=== PATIENT | female | born 1960 | race Caucasian/White ===

== ENCOUNTER 2019-08-25 07:22 | Day surgery (SDC) | payer MEDICARE, MEDICAID, SELFPAY ==
--- NOTE | 2019-08-22 16:46 | P.PN_ITS ---
Coding Level of Care Code Acute Morning Babysitter for Samantha Cruz
--- NOTE | 2019-08-22 16:46 | PM.PN ---
Coding Level of Care Code Acute Slip Cover Seamstress for Samantha Cruz
[2019-08-24 13:43] VITALS: BMI 25.4
[2019-08-25 07:48] LABS: Glucose Point of Care 77 mg/dL (70-110)
[2019-08-25] MEDS: sodium chloride 0.9% 1,000 ML 30 ML IV (07:55)
--- NOTE | 2019-08-25 08:04 | ANES.PREANE2 ---
Pre-Anesthetic Assessment Pre-Anesthetic Assessment: Height/Weight: Height 1.52 m Weight 58.967 kg Preop Diagnosis: Right rotator cuff Proposed Procedure: Operation Date: 08/25/19 09:30 Proposed Procedures p Shoulder Arthroscopy [id number](Right) - Fadi Sierra MD s Rotator Cuff Repair/And other indicated procedures(Right) - Fadi Sierra MD Last intake: Intake Last Liquid Date 08/24/19 Last Liquid Time 18:30 Last Solid Date 08/24/19 Last Solid Time 18:30 Social: Social History: Tobacco Packs per day: 1 Pack years: 45 Comment: quit 2 weeks Exam: Pre-Anes Outpt Exam: alert, oriented x 3, clear to auscultation bilaterally and regular rate & rhythm Airway: Submandibular: WNL Cervical ROM: WNL MP: 1 Pulmonary: Pulmonary: COPD Comments: home 02 2lpm x 2y CV/HEM: CV/HEM: HTN Comments: rx'd 2y stress test negative GI: GI: GERD Comments: well controlled Metabolic: Metabolic: DM Comments: rx'd x 12y, does not follow Musc/skel: Musc/skel: Lower Back Pain (bilateral radiculopathy) Neuropsych: Neuropsych: Depression Anesthetic Plan: ASA status: 3 Anesthesia: General PFSH Anesthesia PFSH: Social History Smoking and tobacco status: former smoker Alcohol intake: never Data Anesthesia Other Labs: Laboratory Results - last 48 hr 08/25/19 07:44 POC Glucose 77 Cardiac Studies: No Data to Display
--- NOTE | 2019-08-25 08:37 | ANES.PROC ---
Anesthesia Procedures Procedure/Date: 08/25/19 Right innerscalene block Procedure Narrative: R&B's of right interscalene block for right shoulder surgery postop pain mx disc'd. Verbal and written consent obtained. Versed 2+1+1mg, Fentanyl 50ug. US utilized to identify right interscalene groove, NENITA. Nerve stimulator at 0.8mAMPS. Ropvicaine 0l5% + Lido 2% with epi 30cc in 3:1 ratio in 5cc increments without problems/complications. Nerve Block ^: Nerve Block 1: Main Anesthesia: general anesthesia Time Out Performed: Yes Consent: requested by attending/covering physician, from patient, risks and benefits reviewed and patient agrees to proceed Nerve block location: interscalene Anesthesia monitors applied: pulse oximetry and oxygen Anesthetic Used: lidocaine 2%, ropivicaine 0.5% and with epi Amount of anesthesia used (mL): 30 Ultrasound used to: visualize and ID interscalene groove Nerve Stimulator Used?: Yes Interscalene/Femoral BLK: 2 stimuplex 22 g needle used for position and inplane approach Injection: neg aspiration of heme Patient Tolerated Procedure: well and no complications Complications: none
[2019-08-25] MEDS: fentaNYL 50 mcg/mL INJ 2mL 100 MCG IVP (09:06)
[2019-08-25] MEDS: midazolam 1 mg/mL INJ 5 ML 5 MG IVP (09:08)
--- NOTE | 2019-08-25 09:35 | W.PM.OPSUD ---
Surgery/Procedure H&P Update DATE OF PROCEDURE: August 25, 2019 DATE H&P PERFORMED: 08/15/19 H&P UPDATE INFORMATION: I have reviewed H&P completed within last 30 days and No changes to prior documentation PREOP DIAGNOSIS: Right rotator cuff PRIMARY INDICATION FOR PROCEDURE: Chronic right shoulder pain with MRI showing full-thickness rotator cuff tear PLANNED PROCEDURE: Operation Date: 08/25/19 09:30 Proposed Procedures p Shoulder Arthroscopy [id number](Right) - Fadi Sierra MD s Rotator Cuff Repair/And other indicated procedures(Right) - Fadi Sierra MD
--- NOTE | 2019-08-25 11:25 | P.OP_ITS ---
Operative Report Date of procedure: August 25, 2019 Pre-op Diagnosis: Right rotator cuff tear Post-op Diagnosis: High-grade partial-thickness tear right rotator cuff Post-op Findings: Same Procedure Done: Arthroscopic repair right rotator cuff with bio inductive implant Implants: Ornelas and Nephew Regeneten bio inductive in Pathology: none sent Anesthesia: General and Nerve Block (Interscalene) Estimated blood loss (mL): 25 Complications: None Findings: The patient had high-grade tearing on the articular aspect of her supraspinatus involving approximately 60% of the thickness of the tendon. Her glenohumeral joint and humeral head were free of chondromalacia. Labral attachments in her biceps were healthy Condition: stable Disposition: PACU Procedure: The patient was taken to the operating room after she was given an interscalene block by anesthesia. She was taken to the operating room and given 2 g of Ancef, she was positioned in the lateral position with her right arm in 15 pounds of traction. A timeout was performed. A posterior portal was made 2 cm inferior medial to the posterior corner of the acromion. A scope cannula and trocar were driven into the glenohumeral joint and anterior working portal was made with a scalpel blade. A probe was introduced and the glenohumeral arthroscopy performed. Essentially no abnormal findings were identified other than the articular tear of the rotator cuff. The rotator cuff was lightly debri ded with the incisor shaver revealing the area of high-grade tearing beginning just posterior to the biceps tendon extending posteriorly approximately a centimeter and a half involving approximately 60% of the thickness of the tendon. A spinal needle was introduced laterally in the area of tearing marked. The scope and the anterior cannula were then directed to the subacromial space. A lateral portal was opened up in the bursal aspect of the rotator cuff carefully probed. No areas of full-thickness tearing were identified. As the problems seem to be predominantly a biological issue decision was made to proceed with a bio inductive implant. Through a low lateral portal the regenerative and implant was introduced. It was fixed laterally on the greater tuberosity with 2 bone jason and anteriorly posteriorly and medially with the soft tissue jason all with excellent purchase. This provided nice coverage over the area of partial-thickness tearing. The shoulder was irrigated with saline. Portals were closed with 3-0 Prolene. Sterile dressings were applied. The patient was placed in a sling, extubated, taken recovery room in stable condition.
[2019-08-25 11:32] VITALS: BP 123/67; PULSE 69; RESP 20; TEMP 36.1; O2SAT 94
[2019-08-25 11:35] VITALS: BP 126/72; PULSE 72; RESP 19; O2SAT 97
[2019-08-25 11:40] VITALS: BP 139/74; PULSE 74; RESP 13; O2SAT 99
[2019-08-25 11:45] VITALS: BP 133/58; PULSE 79; RESP 18; O2SAT 93
[2019-08-25 11:50] VITALS: BP 112/73; PULSE 67; RESP 18; TEMP 36.1; O2SAT 98
[2019-08-25 11:53] VITALS: BP 109/72; PULSE 69; RESP 18; TEMP 36.2; O2SAT 93
== END 2019-08-25 12:40 | disposition home or self-care (01) ==
PROVIDERS: Family Provider Nurse Practitioner Family; PCP Nurse Practitioner Family; Visit Provider Orthopaedic Surgery
PROC: (CPT 29805; principal; 2019-08-25 09:30)
PROC: (CPT 29827; 2019-08-25 09:30)
DX: M75.101 Unspecified rotator cuff tear or rupture of right shoulder, not specified as traumatic (principal); Z87.891 Personal history of nicotine dependence; J44.9 Chronic obstructive pulmonary disease, unspecified; I10 Essential (primary) hypertension; K21.9 Gastro-esophageal reflux disease without esophagitis; E11.9 Type 2 diabetes mellitus without complications; F32.9 Major depressive disorder, single episode, unspecified
CPT/HCPCS: 29827; 12345; 36416; 82962; 96374; C1713; J0690; J2001; J2250; J2370; J2405; J2704; J2710; J2795; J3010; J3490; J7030

== ENCOUNTER → 2019-10-05 09:20 | Outpatient (BNVA) | payer MEDICARE, MEDICAID, SELFPAY | PROVIDERS: Family Provider Nurse Practitioner Family; PCP Nurse Practitioner Family; Visit Provider Orthopaedic Surgery | DX: M75.101 Unspecified rotator cuff tear or rupture of right shoulder, not specified as traumatic (principal); M13.811 Other specified arthritis, right shoulder | CPT/HCPCS: 73030 ==

== ENCOUNTER 2019-10-11 06:00 | Outpatient (RCR) | payer MEDICARE, MEDICAID, SELFPAY | END 2019-11-05 23:59 | disposition home or self-care (01) | LOC: WPT 06:00 | PROVIDERS: PCP Nurse Practitioner Family; Referring Provider Orthopaedic Surgery; Visit Provider Orthopaedic Surgery | DX: Z47.89 Encounter for other orthopedic aftercare (principal); Z98.890 Other specified postprocedural states | CPT/HCPCS: 97110; 97112; 97162; 97530 ==

== ENCOUNTER 2019-11-06 06:00 | Outpatient (RCR) | payer MEDICARE, MEDICAID, SELFPAY | END 2019-12-05 23:59 | disposition home or self-care (01) | LOC: WPT 06:00 | PROVIDERS: PCP Nurse Practitioner Family; Visit Provider Orthopaedic Surgery | DX: Z47.89 Encounter for other orthopedic aftercare (principal); Z98.890 Other specified postprocedural states | CPT/HCPCS: 97110; 97112; 97140; 97150 ==

== ENCOUNTER 2019-11-15 06:00 | Day surgery (SDC) | payer MEDICARE, MEDICAID, SELFPAY ==
[2019-11-15] VITALS (9 sets, daily range): BP systolic 144–224; BP diastolic 74–124; PULSE 71–94; RESP 18–23; TEMP 36.1–37; O2SAT 93–100; BMI 29.7
[2019-11-15 06:30] LABS: Glucose Point of Care 131 mg/dL (70-110)
--- NOTE | 2019-11-15 06:34 | P.ANESASSM_ITS ---
Pre-Anesthetic Assessment Pre-Anesthetic Assessment: Height/Weight: Height 1.52 m Weight 68.946 kg Temp Pulse Resp BP Pulse Ox 98.2 F 89 18 144/74 97 11/15/19 06:16 11/15/19 06:16 11/15/19 06:16 11/15/19 06:16 11/15/19 06:16 Preop Diagnosis: Stiffness status post right rotator cuff repair Proposed Procedure: Operation Date: 11/15/19 07:00 Proposed Procedures p right shoulder arthrosocpy with release of adhesions ([id number])Z48.890(Right) - Fadi Sierra MD Familial anesthetic complications: None Was Beta Roxi taken within 24 hours: N/A Last intake: Intake Last Liquid Date 11/14/19 Last Liquid Time 18:00 Last Solid Date 11/14/19 Last Solid Time 18:00 Social: Comment: former smokers Exam: Pre-Anes Outpt Exam: alert, oriented x 3, clear to auscultation bilatera lly and regular rate & rhythm Airway: Cervical ROM: WNL MP: 2 Additional comments: missing Pulmonary: Pulmonary: COPD (2 L NC at night) Comments: Has had interscalene recently for shoulder and did well from a breathing standing CV/HEM: CV/HEM: Arrythmia (was told she has had a fib) and HTN Comments: stress test this november was negative for ischemia : : None reported Hepatic: Hepatic: None reported GI: GI: GERD Metabolic: Metabolic: DM, Hyperlipidemia and Thyroid Musc/skel: Musc/skel: None reported Neuropsych: Neuropsych: None reported Comments: syncopal-like episode - was having PVCs when she went to ER, went for stress test (normal stress test) in november. Anesthetic Plan: ASA status: 4 Anesthesia: General and Regional (specify below) Risk of > 500 ml blood loss (7ml/kg in children): No PFSH Anesthesia PFSH: Medical History Essential hypertension Family History Father Bleeding disorder Anesthesia complication Other CAD (coronary artery disease) Diabetes Social History Smoking and tobacco status: former smoker Alcohol intake: never Data Anesthesia Other Labs: Laboratory Results - last 48 hr 11/15/19 06:27 POC Glucose 131 Cardiac Studies: No Data to Display
[2019-11-15] MEDS: sodium chloride 0.9% 1,000 ML 30 ML IV (06:42)
--- NOTE | 2019-11-15 06:43 | ECG_ITS ---
"Measurements Intervals [place] Rate: 84 P: 40 MN: 196 QRS: 23 QRSD: 83 T: 47 QT: 377 QTc: 447 SINUS RHYTHM WITH OCCASIONAL SUPRAVENTRICULAR PREMATURE COMPLEXES LOW QRS VOLTAGE IN PRECORDIAL LEADS [QRS DEFLECTION < 1.0 mV IN CHEST LEADS] POSSIBLE RIGHT VENTRICULAR CONDUCTION DELAY [RSR (QR) IN V1/V2] Compared to ECG 09/23/2018 12:43:23 No significant changes Electronically Signed On 11-15-2019 7:00:43 CDT by Arik Heller M.D. [email or web address] An[employer] | [id number] curran"
[2019-11-15] MEDS: midazolam 1 mg/mL INJ 2 mL 2 MG IVP (06:45)
--- NOTE | 2019-11-15 07:00 | ANES.PROC ---
Anesthesia Procedures Procedure/Date: 11/15/19 Nerve Block ^: Nerve Block 1: Main Anesthesia: general anesthesia Time Out Performed: Yes Consent: requested by attending/covering physician, from patient, risks and benefits reviewed and patient agrees to proceed Nerve block location: interscalene (R) Anesthesia monitors applied: pulse oximetry, BP cuff and oxygen Nerve block position: semi sitting Anesthetic Used: ropivicaine 0.5% and with decadron (3 mg) Amount of anesthesia used (mL): 20 Ultrasound used to: recognize landmarks, visualize and ID brachial plexus and visualize and ID interscalene groove Nerve Stimulator Used?: No Interscalene/Femoral BLK: 2 stimuplex 22 g needle used for position and inplane approach Injection: neg aspiration of heme Patient Tolerated Procedure: well Complications: none
--- NOTE | 2019-11-15 07:00 | W.PM.OPSUD ---
Surgery/Procedure H&P Update DATE OF PROCEDURE: November 15, 2019 DATE H&P PERFORMED: 11/06/19 PREOP DIAGNOSIS: Stiffness status post right rotator cuff repair PLANNED PROCEDURE: Operation Date: 11/15/19 07:00 Proposed Procedures p right shoulder arthrosocpy with release of adhesions ([id number])Z48.890(Right) - Fadi Sierra MD
[2019-11-15] MEDS: clindamycin 600 MG/50 ML PREMIX 100 MG IV (07:05)
[2019-11-15] MEDS: EPINEPHrine 1 mg/mL INJ 2 MG XX (07:51)
--- NOTE | 2019-11-15 08:17 | PM.OP ---
Operative Report Date of procedure: November 15, 2019 Pre-op Diagnosis: Stiffness status post right rotator cuff repair Post-op diagnosis: same Post-op Findings: Subacromial adhesions right shoulder Procedure Done: The scopic debridement adhesions of the subacromial space Implants: None Pathology: none sent Surgeon: Fadi Sierra Anesthesia: General Estimated blood loss (mL): 5 Findings: Preoperatively I could flex her shoulder to 90 degrees and actually rotated 20 degrees. She could abduct only approximately 60 degrees before firm endpoint was met patient had dense and subacromial adhesions. She had healing of her Ornelas and Nephew Regeneten implant with excellent vascularity. Seem to be good structural integrity toward the augmented rotator cuff. Minimal degenerative changes were identified of the glenohumeral joint. Biceps tendon appeared healthy. Condition: stable Disposition: PACU Procedure: Patient was taken to the operating room and given a general anesthesia. She was given 600 mg of clindamycin. Initial efforts were made at a manipulation of the right shoulder. The shoulder was initially brought through a preoperative range of motion with the above findings noted. The shoulder was then flexed to 170 degrees. The arm was then abducted 90 degrees and externally rotated 80 degrees and into the rotated 70 degrees. With the elbow at the side the shoulder was then externally rotated to 70 degrees. These motions were all identical to the contralateral side. The patient was then positioned in the lateral position with the right arm in traction. The shoulder was entered through the previous posterior portal and anterior working portal was made and the shaver introduced into the glenohumeral joint and blood and debris's removed. Diagnostic portion of the glenohumeral arthroscopy was performed. The biceps tendon was retracted and the joint and examined. The old partial-thickness articular tear was again identified but clearly no full-thickness tearing was noted. Arthroscopic equipment was then moved into the subacromial space. A lateral portal was opened. An incisor shaver was introduced and dense subacromial adhesions were removed with the shaver. This exposed the Ornelas and Nephew Regeneten implant. Remnants of old soft tissue and bone jason were identified. The implant was's vascularized intact. The rotator cuff was probed and the augmented rotator cuff seemed to be of sufficient quality. The Ornelas and Nephew Werewolf probe was used to remove additional subacromial adhesions in the subdeltoid space, anterior subacromial space, posterior subacromial space, and medially. The shoulder was irrigated with saline. Arthroscopic [place] was removed. Portals were closed with 3-0 Prolene. Sterile dressings were applied. The patient was placed in a sling, extubated, and taken recovery room in stable condition.
--- NOTE | 2019-11-15 08:59 | SUR.PHASEI ---
;;[id number] PT TO PACU WEAK GASPING WITH RAPID RESP NOTED PT HOB UP TO 40 DEGREES PT LEANING SO PROPPED WITH BLANKETS SATS GOOD ON 4LNC, NETWORK CONTRACT MANAGER AND DR FELTON AT BEDSIDE ORDERS FOR MORE REVERSAL , NETWORK CONTRACT MANAGER TO GIVE, 0825 PT STILL HAVING DIFFICULTY BREATHING, ALBUTEROL NEB ORDERED 0828 PT MORE AWAKE AFTER SUGAMADEX PER NETWORK CONTRACT MANAGER, NEB TX STARTED PT SATS IMPROVING AND PT MOVING MORE STRONGLY, COUGHING NOW, VSS PT AWAKE ALERT AND BREATHING MORE EASILY, 0838 PT AWAKE ALERT BACK ON 2LNC AT HOME, BILAT LUNGS CLEAR WITH DIMINISHED RT LOWER LUNG, PT HAS RT SHOULDER DRESSING D./I SLING, AND HAD BLOCK EARLLIER , WITH FINGERS PINK WARM PT STATES HER FINGERS FEEL (NUMB) PT RUBBING HER RT FINGERS CONTINUALLY, PT TAKING ICE CHIPS REPORT TO OPS.
== END 2019-11-15 09:43 | disposition home or self-care (01) ==
PROVIDERS: PCP Nurse Practitioner Family; Visit Provider Orthopaedic Surgery
PROC: (CPT 29805; principal; 2019-11-15 07:00)
DX: M25.611 Stiffness of right shoulder, not elsewhere classified (principal); Z98.890 Other specified postprocedural states; J44.9 Chronic obstructive pulmonary disease, unspecified; I10 Essential (primary) hypertension; K21.9 Gastro-esophageal reflux disease without esophagitis; E11.9 Type 2 diabetes mellitus without complications; E78.5 Hyperlipidemia, unspecified; Z79.82 Long term (current) use of aspirin; Z79.4 Long term (current) use of insulin; Z87.891 Personal history of nicotine dependence
CPT/HCPCS: 29822; 12345; 36416; 82962; 93005; 96374; J0171; J1100; J1885; J2001; J2250; J2310; J2370; J2405; J2704; J2710; J2795; J3010; J3490; J7030; J7611

== ENCOUNTER 2019-12-06 06:00 | Outpatient (RCR) | payer MEDICARE, MEDICAID, SELFPAY | END 2020-01-05 23:59 | disposition home or self-care (01) | LOC: WPT 06:00 | PROVIDERS: PCP Nurse Practitioner Family; Visit Provider Orthopaedic Surgery | DX: Z47.89 Encounter for other orthopedic aftercare (principal); Z98.890 Other specified postprocedural states | CPT/HCPCS: 97110; 97140; 97164 ==

== ENCOUNTER 2020-01-06 06:00 | Outpatient (RCR) | payer MEDICARE, MEDICAID, SELFPAY | END 2020-02-05 23:59 | disposition home or self-care (01) | LOC: WPT 06:00 | PROVIDERS: PCP Nurse Practitioner Family; Visit Provider Orthopaedic Surgery | DX: Z47.89 Encounter for other orthopedic aftercare (principal) | CPT/HCPCS: 97110 ==

== ENCOUNTER → 2020-05-20 14:24 | Outpatient (BNVA) | payer MEDICARE, MEDICAID, SELFPAY | PROVIDERS: PCP Nurse Practitioner Family; Visit Provider Internal Medicine | DX: Z20.828 Contact with and (suspected) exposure to other viral communicable diseases (principal); Z01.818 Encounter for other preprocedural examination; Z86.010 Personal history of colon polyps | CPT/HCPCS: 87635 ==

== ENCOUNTER 2020-05-24 09:01 | Day surgery (SDC) | payer MEDICARE, MEDICAID, SELFPAY ==
[2020-05-22 14:07] VITALS: BMI 31.2
--- NOTE | 2020-05-24 09:21 | W.PM.OPSUD ---
Surgery/Procedure H&P Update DATE OF PROCEDURE: May 24, 2020 DATE H&P PERFORMED: 11/06/19 PREOP DIAGNOSIS: dbl PLANNED PROCEDURE: Operation Date: 05/24/20 10:00 Proposed Procedures p EGD [id number] z86.010(Not Applicable) - Twan Toribio MD s Colonoscopy(Not Applicable) - Twan Toribio MD
[2020-05-24 09:27] VITALS: PULSE 79; RESP 18; TEMP 36.6; O2SAT 98
[2020-05-24 09:31] VITALS: BP 102/76
[2020-05-24] MEDS: sodium chloride 0.9% 1,000 ML 30 ML IV (09:38)
[2020-05-24 09:43] LABS: Glucose Point of Care 130 mg/dL (70-110)
--- NOTE | 2020-05-24 09:43 | ANES.PREANE2 ---
Pre-Anesthetic Assessment Pre-Anesthetic Assessment: Height/Weight: Height 1.52 m Weight 72.575 kg Temp Pulse Resp BP Pulse Ox 97.9 F 79 18 102/76 98 05/24/20 09:27 05/24/20 09:27 05/24/20 09:27 05/24/20 09:31 05/24/20 09:27 Preop Diagnosis: dbl Proposed Procedure: Operation Date: 05/24/20 10:00 Proposed Procedures p EGD [id number] z86.010(Not Applicable) - Twan Toribio MD s Colonoscopy(Not Applicable) - Twan Toribio MD Last intake: Intake Last Liquid Date 05/23/20 Last Liquid Time 20:00 Last Solid Date 05/22/20 Last Solid Time 17:00 Social: Social History: Tobacco (quit 2 weeks ago) and No alcohol Exam: Pre-Anes Outpt Exam: alert, oriented x 3, clear to auscultation bilaterally (bilat wheezes) and regular rate & rhythm Airway: Submandibular: WNL Cervical ROM: WNL MP: 2 Additional comments: poor dentation, mult missing History/ROS: No significant history except as noted Pulmonary: Pulmonary: COPD, GONZALES and SOB CV/HEM: CV/HEM: HTN : : None reported Hepatic: Hepatic: None reported GI: GI: GERD Metabolic: Metabolic: DM, Hyperlipidemia and Thyroid Musc/skel: Musc/skel: Lower Back Pain and OA/DJD Neuropsych: Neuropsych: None reported Anesthetic Plan: ASA status: 3 Anesthesia: Anesthesia Evaluation and MAC Risk of > 500 ml blood loss (7ml/kg in children): No Meds/Allergies Current Medications: Current Medications Generic Name Dose Route Start Last Admin Trade Name Freq PRN Reason Stop Dose Admin Sodium Chloride 1,000 mls @ 30 ml s/hr 05/24/20 09:15 05/24/20 09:38 Sodium Chloride 0.9% IV 05/25/20 09:14 30 mls/hr .Q24H ANITA Administration PFSH Anesthesia PFSH: Medical History Essential hypertension Family History Father Bleeding disorder Anesthesia complication Other CAD (coronary artery disease) Diabetes Social History Smoking and tobacco status: former smoker Alcohol intake: never History of recent travel: No Data Anesthesia Other Labs: Laboratory Results - last 48 hr 05/24/20 09:36 POC Glucose 130 H Cardiac Studies: No Data to Display
[2020-05-24 11:17] VITALS: BP 100/64; PULSE 75; RESP 16; TEMP 36.3; O2SAT 98
[2020-05-24 11:28] VITALS: BP 124/75; PULSE 77; RESP 18; O2SAT 100
--- NOTE | 2020-06-03 11:51 | W.PM.OPSFHP ---
Same Day Surgery H&P Indication for Procedure/HPI DATE OF PROCEDURE: June 03, 2020 CHIEF COMPLAINT/INDICATIONFOR SURGICAL PROCEDURE: Epigastric pain PREOP DIAGNOSIS: dbl PLANNED PROCEDRUE: Operation Date: 05/24/20 10:00 Proposed Procedures p EGD [id number] z86.010(Not Applicable) - Twan Toribio MD s Colonoscopy(Not Applicable) - Twan Toribio MD Medications/Allergies* Home Medications Medication Instructions Recorded Confirmed Type Trelegy Ellipta 1 inh INHALATION DAILY 08/24/19 05/24/20 History Xultophy 100/3.6 15 unit SUBCUT DAILY 08/24/19 05/24/20 History aspirin [Aspirin Childrens] 81 mg PO DAILY 08/24/19 05/24/20 History bupropion HCl 150 mg PO QAM 08/24/19 05/22/20 History cyclobenzaprine 10 mg PO TID PRN 08/24/19 05/22/20 History famotidine 40 mg PO DAILY 08/24/19 05/22/20 History gabapentin 300 mg PO DAILY 08/24/19 05/22/20 History levothyroxine 25 mcg PO DAILY 08/24/19 05/22/20 History montelukast [Singulair] 10 mg PO DAILY 08/24/19 05/22/20 History rosuvastatin [Crestor] 20 mg PO DAILY 08/24/19 05/24/20 History tramadol 50 mg PO Q6H PRN 08/24/19 05/24/20 History Allergies/Adverse Reactions Allergy/AdvReac Type Severity Reaction Status Date / Time Penicillins Allergy Severe Unknown Verified 05/16/20 14:27 Sulfa (Sulfonamide Allergy Severe Unknown Verified 05/16/20 14:27 Antibiotics) prednisone Allergy ALGY-Redness Verified 05/16/20 14:27 of Skin Pertinent History/Comorbid Conditions* Medical History (Updated 05/16/20 @ 15:03 by Twan Toribio MD) Essential hypertension Family History (Updated 08/29/19 @ 09:52 by Nelli Machado LPN) Diabetes CAD (coronary artery disease) Anesthesia complication Father Bleeding disorder Father Social History Smoking and tobacco status: former smoker Alcohol intake: never History of recent travel: No Pertinent Exam Findings alert, oriented x 3, clear to auscultation bilaterally, regular rate & rhythm, operative site marked and procedure specific exam findings Recommendations Surgery/Procedure today Coding Level of Care Code Acute Bus And Trolley Inspecting Dispatcher for [facility] Nancy
== END 2020-05-24 11:34 | disposition home or self-care (01) ==
PROVIDERS: PCP Nurse Practitioner Family; Visit Provider Internal Medicine
PROC: 0DJ08ZZ Inspection of Upper Intestinal Tract, Via Natural or Artificial Opening Endoscopic (ICD-10-PCS; CPT 43235; principal; 2020-05-24 10:00)
PROC: 0DJD8ZZ Inspection of Lower Intestinal Tract, Via Natural or Artificial Opening Endoscopic (ICD-10-PCS; CPT 45378; 2020-05-24 10:00)
DX: Z86.010 Personal history of colon polyps (principal); Z87.891 Personal history of nicotine dependence; J44.9 Chronic obstructive pulmonary disease, unspecified; I10 Essential (primary) hypertension; K21.9 Gastro-esophageal reflux disease without esophagitis; E11.9 Type 2 diabetes mellitus without complications; E78.5 Hyperlipidemia, unspecified; M19.90 Unspecified osteoarthritis, unspecified site; Z79.82 Long term (current) use of aspirin; Z79.4 Long term (current) use of insulin
CPT/HCPCS: 12345; 36416; 43235; 45378; 82962; J7030

== ENCOUNTER 2022-03-10 14:14 | Outpatient (CLI) | payer MEDICARE, SELFPAY ==
--- NOTE | 2022-03-10 14:22 | MR_ITS ---
WS: [id number] MRI LEFT SHOULDER HISTORY: PAIN OF L SHOULDER JOINT COMPARISON: None available. TECHNIQUE: Multiplanar sequences of the shoulder joint are submitted. Patient was unable to complete this examination due to pain. Only a few sequences have been submitted . Some of the sequences have significant motion artifact. Moderate AC joint hypertrophy with mild encroachment upon the supraspinatus muscle and tendon. Small amount of fluid along the AC joint. No os acromion. Biceps tendon in the bicipital groove with increa sed fluid in the tendon sheath. There is increased T2 signal surrounding the distal supraspinatus ten don and a moderate insertion site tear of approximately 5 mm. No retraction or full-thickness tear. S ubscapularis tendon appears intact with mild tendinopathy. No muscle atrophy. Increased T2 signal thr ough the rotator cuff interval. There is abnormal signal in the posterior labrum. This is a very limited evaluation of the labrum but the posterior labrum does have a tear. MR/MR shoulder LT wo con* [id number] IMPRESSION: 1. Very limited evaluation of the LEFT shoulder. Patient was unable to complet e this examination secondary to motion. 2. Moderate AC joint arthritis with encroachment upon the supraspinatus. 3. Insertion site tear supraspinatus muscle with tendinopathy. 4. Suspect posterior labral tear. There may be additional labral tears but the study is suboptimal.
== END 2022-03-10 14:15 | disposition home or self-care (01) ==
LOC: RAD 14:14
PROVIDERS: PCP Nurse Practitioner Family; Visit Provider Registered Nurse
DX: M13.812 Other specified arthritis, left shoulder (principal); M75.102 Unspecified rotator cuff tear or rupture of left shoulder, not specified as traumatic
CPT/HCPCS: 73221

== ENCOUNTER → 2022-03-31 13:35 | Outpatient (BNVA) | payer MEDICARE, MEDICAID, SELFPAY | PROVIDERS: PCP Nurse Practitioner Family; Visit Provider Nurse Practitioner Family | DX: M67.912 Unspecified disorder of synovium and tendon, left shoulder (principal) | CPT/HCPCS: 20610; 73030; 99204; J1100; J2795; J3301 ==

== ENCOUNTER → 2022-12-28 14:02 | Outpatient (BNVA) | payer MEDICARE, MEDICAID, SELFPAY | PROVIDERS: PCP Nurse Practitioner Family; Visit Provider Internal Medicine Cardiovascular Disease | DX: R00.2 Palpitations (principal); R55 Syncope and collapse; R06.02 Shortness of breath; R07.9 Chest pain, unspecified; J43.9 Emphysema, unspecified; G47.33 Obstructive sleep apnea (adult) (pediatric) | CPT/HCPCS: 36415; 80048; 83880; 93005; 93270; 99205 ==

== ENCOUNTER 2023-01-11 09:53 | Outpatient (CLI) | payer MEDICARE, MEDICAID, SELFPAY ==
--- NOTE | 2023-01-11 11:00 | USCV_ITS ---
Jael Adame Age: 62 Gender: F : 1960 Exam Date: 01/11/2023 10:46 Ordering Phys: Lauren Brothers MD ([email or web address]) Technologist: PROSPER Exam Location: [facility] [place] Indication: SHORTNESS OF BREATH BP: 125 / 62 HR: 58 Rhythm: Sinus Technical Quality: Adequate MEASUREMENTS (Male / Female) Normal Values 2D ECHO LVOT Diameter 2.0 cm LV Ejection Fraction MOD 2C 72.1 % LV Ejection Fraction 2C AL 76.0 % LA Diameter 3.0 cm LA Width 3.0 cm LA Height 4.0 cm RA Width 2.9 cm RA Height 3.4 cm Aorta at Sinotubular Diameter 2.1 cm IVC Diameter 1.3 cm M-MODE Aortic Annulus Diameter 3.2 cm LA Ao Ratio MM 0.9 MV E Point Septal Separation 0.3 cm DOPPLER AV Peak Velocity 117.0 cm/s LVOT Peak Velocity 114.0 cm/s AV Area Cont Eq vti 3.2 cm squared AV Area Cont Eq pk 3.2 cm squared MV Peak Velocity 104.0 cm/s MV Area PHT 4.1 cm squared Mitral E to A Ratio 0.7 MV E' Velocity 35.0 cm/s Mitral E to MV E' Ratio 12.9 Mitral E to LV E' Lateral Ratio 15.3 Mitral E to LV E' Septal Ratio 11.3 TR Peak Velocity 166.0 cm/s TR Peak Gradient 11.0 mmHg TR Mean Velocity 141.5 cm/s TR Mean Gradient 8.0 mmHg TR Velocity Time Integral 43.0 cm TV Peak E Velocity 71.0 cm/s Right Atrial Pressure 3.0 mmHg Pulmonary Artery Systolic Pressu 14.0 mmHg PV Peak Velocity 82.0 cm/s RV Acceleration Time 0.1 s RV Ejection Time 0.3 s RV AcT/ET 0.3 FINDINGS Left Ventricle Normal left ventricular size and systolic function, EF 72 %. Moderate left ventricular hypertrophy. No regional wall motion abnormalities. Grade I/IV diastolic dysfunction (abnormal relaxation filling pattern), normal to mildly elevated filling pressures. Right Ventricle The right ventricle is normal in size and function. Right Atrium The right atrium is normal in size. Left Atrium Mildly increased left atrial size. Mitral Valve Mild mitral annular calcification. Aortic Valve No gross abnormalities noted. The LVOT velocity was 1.14 m/s at rest. With the Valsalva's maneuver, the velocity went up to 2.9 m/s with a gradient of 34 mmHgtrace to mild aortic valve regurgitation. Tricuspid Valve No gross abnormalities noted Pulmonic Valve Pulmonic valve not well visualized. Pericardium Normal pericardium without effusion. Aorta Normal ascending aorta dimension. IVC The inferior vena cava appears normal. CONCLUSIONS Normal left ventricular size and systolic function, EF 72 %. Moderate left ventricular hypertrophy. No regional wall motion abnormalities. Grade I/IV diastolic dysfunction (abnormal relaxation filling pattern), normal to mildly elevated filling pressures. Features of hypertrophic obstructive cardiomyopathy with a Valsalva gradient of 34 mmHg and normal resting gradient. Trace to mild aortic valve regurgitation. There are no intracardiac masses. There is no pericardial effusion. Compared to the study from 08/16/2014, there may not be significant change Dr Lauren Brothers MD FACC (Electronically Signed) Final Date: 12 January 2023 09:52 S
== END 2023-01-11 09:54 | disposition home or self-care (01) ==
PROVIDERS: PCP Nurse Practitioner Family; Visit Provider Internal Medicine Cardiovascular Disease
DX: I35.1 Nonrheumatic aortic (valve) insufficiency (principal); R06.09 Other forms of dyspnea
CPT/HCPCS: 93306

== ENCOUNTER → 2023-04-09 10:41 | Outpatient (BNVA) | payer MEDICARE, MEDICAID, SELFPAY | PROVIDERS: PCP Nurse Practitioner Family; Visit Provider Nurse Practitioner Family | DX: I10 Essential (primary) hypertension (principal); R00.2 Palpitations; Z87.891 Personal history of nicotine dependence | CPT/HCPCS: 99213 ==

== ENCOUNTER → 2023-10-19 11:28 | Outpatient (BNVA) | payer MEDICARE, MEDICAID, SELFPAY | PROVIDERS: PCP Nurse Practitioner Family; Visit Provider Internal Medicine Cardiovascular Disease | DX: I45.10 Unspecified right bundle-branch block (principal); I21.29 ST elevation (STEMI) myocardial infarction involving other sites; R07.9 Chest pain, unspecified; J43.8 Other emphysema; I51.81 Takotsubo syndrome; I10 Essential (primary) hypertension; G47.33 Obstructive sleep apnea (adult) (pediatric); I73.9 Peripheral vascular disease, unspecified; I45.19 Other right bundle-branch block; R94.31 Abnormal electrocardiogram [ECG] [EKG] | CPT/HCPCS: 93005; 99214 ==

== ENCOUNTER 2024-01-11 08:16 | Outpatient (CLI) | payer MEDICARE, MEDICAID, SELFPAY ==
--- NOTE | 2024-01-11 | PETR_ITS ---
PROCEDURE INFORMATION: Exam: PET/CT Skull Base to Mid-thigh Exam date and time: 01/11/2024 9:33 AM Age: 63 years old Clinical indication: Condition or disease; Primary cancer: Small cell cancer unspecified site; Initial oncological staging assessment; Additional info: Malignant neoplasm unspecified LABS AND CLINICAL REPORTS: Glucose: 170 mg/dl Treatment strategy for malignancy (PET staging): Initial Staging (PI) TECHNIQUE: Imaging protocol: Following at least four-hour fasting and following the injection of radiopharmaceutical, low dose CT images were obtained. Then, PET images were obtained. Attenuation corrected images were constructed using the CT scan. Fused images of PET and CT were reviewed. The standardized uptake values (SUV) reported below are maximum values within a region of interest, expressed in gm/ml. Exam includes orbital meatal line to mid-thigh. Radiopharmaceutical: 10.95 mCi F-18 FDG (Fluorodeoxyglucose), IV. Time of imaging post radiopharmaceutical administration: 48 minutes Injection site: Left antecubital COMPARISON: CT abdomen pelvis w con* [id number] 09/23/2018 11:25 AM FINDINGS: Brain: Visualized brain has normal physiologic uptake. Pharynx: No abnormal uptake. Larynx: No abnormal uptake. Lungs, pleura and trachea: Right upper lobe mass measures 4.2 x 3.4 cm on axial image 237 of series 202 and shows FDG uptake with SUV max of 10.5. Calcified right upper lobe granuloma. Heart: Normal physiologic uptake. Coronary arteries: Mild coronary artery calcification. Mediastinal space: No abnormal uptake. Liver: There is a 2.7 cm hypodense liver lesion on axial image 206 of series 202 with SUV max of 5.4. Gallbladder and biliary ducts: No abnormal uptake. Prior cholecystectomy. Pancreas: No abnormal uptake. Spleen: No abnormal uptake. Small splenic calcifications in keeping with sequela of old granulomatous disease. Adrenal glands: No abnormal uptake. Kidneys and ureters: Normal physiologic uptake. Left renal duplication. Stomach and bowel: No abnormal uptake. Colonic diverticulosis without findings of diverticulitis. Reproductive: The uterus is surgically absent. Vasculature: No abnormal uptake. Heavy systemic atherosclerotic calcification without aortic aneurysm. Stable 13 x 9 mm rim calcified splenic artery aneurysm. Lymph nodes: No abnormal uptake. No lymphadenopathy in the head, neck, chest, abdomen, pelvis, and extremities. Skeleton: Degenerative changes along the spine and shoulders. Low-level FDG uptake at the pfmrz-bifevkv-ncnk-left hamstring origins and adjacent to the greater trochanters in keeping with tendinopathy. Soft tissues: No abnormal uptake in the visualized head, neck, chest, abdomen, pelvis, and extremities. PET/PET skull to thigh INIT [id number] IMPRESSION: 1. FDG avid 4.2 cm right upper lobe mass likely represents reported lung cancer. 2. Indeterminate 2.7 cm hypodense liver lesion. Recommend nonemergent liver MRI without and with contrast.
== END 2024-01-11 08:17 | disposition home or self-care (01) ==
LOC: RAD 08:16
PROVIDERS: PCP Nurse Practitioner Family; Visit Provider Internal Medicine
DX: C34.91 Malignant neoplasm of unspecified part of right bronchus or lung (principal); K76.9 Liver disease, unspecified; J84.10 Pulmonary fibrosis, unspecified; Z90.49 Acquired absence of other specified parts of digestive tract; K57.90 Diverticulosis of intestine, part unspecified, without perforation or abscess without bleeding; Z90.710 Acquired absence of both cervix and uterus; I70.0 Atherosclerosis of aorta; I72.8 Aneurysm of other specified arteries
CPT/HCPCS: 78815; A9552

== ENCOUNTER → 2024-01-17 07:47 | Outpatient (BNVA) | payer MEDICARE, MEDICAID, SELFPAY | PROVIDERS: PCP Nurse Practitioner Family; Visit Provider Surgery | DX: Z86.010 Personal history of colon polyps (principal); R10.13 Epigastric pain; K21.9 Gastro-esophageal reflux disease without esophagitis; R11.2 Nausea with vomiting, unspecified | CPT/HCPCS: 99204 ==

== ENCOUNTER → 2024-01-19 09:13 | Outpatient (BNVA) | payer MEDICARE, MEDICAID, SELFPAY | PROVIDERS: PCP Nurse Practitioner Family; Visit Provider Nurse Practitioner Family | DX: I42.8 Other cardiomyopathies (principal); I10 Essential (primary) hypertension; F17.200 Nicotine dependence, unspecified, uncomplicated | CPT/HCPCS: 99214 ==

== ENCOUNTER → 2024-02-09 06:00 | Day surgery (SDC) | payer MEDICARE, MEDICAID, SELFPAY | PROVIDERS: PCP Nurse Practitioner Family; Visit Provider Surgery | DX: Z53.9 Procedure and treatment not carried out, unspecified reason (principal) | CPT/HCPCS: 99205 ==

== ENCOUNTER 2024-02-18 08:14 | Outpatient (CLI) | payer MEDICARE, MEDICAID, SELFPAY ==
--- NOTE | 2024-02-18 08:30 | USCV_ITS ---
Jael Adame Age: 63 Gender: F : 1960 Exam Date: 02/18/2024 08:43 Ordering Phys: Lori Diallo Technologist: Erickson Brown Exam Location: [facility] [place] Indication: systolic chf BP: 112 / 78 HR: 72 Rhythm: Sinus Technical Quality: Adequate MEASUREMENTS (Male / Female) Normal Values 2D ECHO LVOT Diameter 2.0 cm LV Ejection Fraction MOD 4C 55.6 % LV Ejection Fraction MOD 2C 62.9 % LV Ejection Fraction 2C AL 70.0 % LA Diameter 3.3 cm RA Systolic Volume 4C AL 17.9 ml RA Systolic Volume 4C MOD 17.5 ml LA Sys Volume AL 31.2 cm cubed LA Sys Volume Index AL 18.1 cm cubed/m squared Aorta at Sinotubular Diameter 2.4 cm IVC Diameter 2.0 cm M-MODE LA Ao Ratio MM 1.3 AV Cusp Separation MM 1.7 cm DOPPLER AV Peak Velocity 93.0 cm/s LVOT Peak Velocity 74.0 cm/s AV Area Cont Eq vti 2.9 cm squared AV Area Cont Eq pk 2.5 cm squared MV Peak Velocity 93.0 cm/s MV Area PHT 3.6 cm squared Mitral E to A Ratio 0.8 TV Peak Velocity 133.5 cm/s TR Peak Velocity 160.0 cm/s TR Peak Gradient 10.2 mmHg TV Peak E Velocity 66.0 cm/s Right Atrial Pressure 3.0 mmHg Pulmonary Artery Systolic Pressu 13.2 mmHg PV Peak Velocity 82.0 cm/s FINDINGS Left Ventricle Normal left ventricular size, systolic function and wall thickness, with no regional wall motion abnormalities. Left ventricular ejection fraction is estimated at 60% mildly increased left ventricular filling pressure. Right Ventricle The right ventricle is normal in size and function. Right Atrium The right atrium is normal in size. Left Atrium The left atrium is normal in size. Mitral Valve Moderately thickened mitral valve. Moderate mitral annular calcification. Aortic Valve Mild aortic valve calcification. No aortic valve stenosis. Trace aortic valve regurgitation. Tricuspid Valve Structurally normal tricuspid valve without significant stenosis or regurgitation. Pulmonary artery systolic pressure is normal. Pulmonic Valve Structurally normal pulmonic valve without significant stenosis. There is no pulmonic regurgitation. Pericardium Normal pericardium without effusion. Aorta Normal ascending aorta dimension. IVC The inferior vena cava appears normal. CONCLUSIONS Normal left ventricular size, systolic function and wall thickness, with no regional wall motion abnormalities. Left ventricular ejection fraction is estimated at 60% mildly increased left ventricular filling pressure. No significant valve abnormalities. There is no pericardial effusion. Right atrial pressure is around [address] Jose Lane MD (Electronically Signed) Final Date: 18 February 2024 12:06 S
== END 2024-02-18 08:15 | disposition home or self-care (01) ==
PROVIDERS: PCP Nurse Practitioner Family; Visit Provider Nurse Practitioner Family
DX: I34.81 Nonrheumatic mitral (valve) annulus calcification (principal); I42.8 Other cardiomyopathies
CPT/HCPCS: 93306; 99214

== ENCOUNTER 2024-02-22 14:18 | Outpatient (CLI) | payer MEDICARE, MEDICAID, SELFPAY ==
--- NOTE | 2024-02-22 14:30 | MRR_ITS ---
PROCEDURE INFORMATION: Exam: MR Abdomen Without Contrast Exam date and time: 02/22/2024 3:06 PM Age: 63 years old Clinical indication: Abnormal findings; Abnormal radiologic finding of the abdomen; Radiologic exam and body structure: Pet scan liver; Prior surgery; Surgery date: 6+ months; Surgery type: Gb, hysterectomy; Additional info: Lung cancer; Liver lesion; Headache, focus on liver TECHNIQUE: Imaging protocol: Magnetic resonance imaging of the abdomen without contrast. COMPARISON: CT abdomen pelvis w con* [id number] 09/23/2018 11:25 AM FINDINGS: Liver: Straddling the border of hepatic segment 7/8 is a mildly T2 hyperintense lobulated mass which corresponds to the hypoattenuation seen on the comparative PET-CT. This mass measures about 4.4 x 3.9 x 4.6 cm on today's examination, previously measuring up to 2.7 cm on the comparative examination. Centrally there is a stellate region of T2 hyperintensity suggesting T2 hyperintense scar There is no significant change in signal on out of phase/inphase sequences. Diffusion mapping was not performed. Lesion demonstrates progressive enhancement of central stellate scar, with suggestion of possible rim enhancement, however this may be normal enhancing liver parenchyma with artifactual hyperenhancement secondary to mass-effect. There is associated transient hepatic intensity differences that resolve on delayed sequences. Delayed sequences demonstrate no significant washout of the central enhancing stellate presumed scar. Additional similar appearing masses noted in the posterior right hepatic lobe (series 501, image 15, as well as the lateral aspect of the right hepatic lobe (series 501, image 11). Gallbladder and biliary ducts: Unremarkable. No stones. No ductal dilation. Pancreas: Unremarkable. No ductal dilation. Spleen: Unremarkable. No splenomegaly. Adrenal glands: Unremarkable. No mass. Kidneys: Unremarkable. No solid mass. No hydronephrosis. Stomach and bowel: Visualized stomach and intestines are unremarkable. Intraperitoneal space: No free fluid. Vasculature: No abdominal aortic aneurysm. Lymph nodes: No enlarged nodes. Bones/joints: Unremarkable. No suspicious lesions. Soft tissues: Unremarkable. MR/MR abdomen wo/w con* [id number] IMPRESSION: 1. Enlarging mildly T2 hyperintense mass within the central aspect of the liver which demonstrates nonspecific findings which can be seen in typical FNH, atypical FNH, inflammatory adenoma, fibrolamellar variant hepatocellular carcinoma. Additionally this could also represent a site of metastasis, however this is much less likely given lack of arterial enhancement as well as lack of significant radiotracer avidity on comparison studies. Patient can return for hepatobiliary contrast agent for further assessment. 2. Additional smaller masses with similar imaging characteristics, differential remains the same.
[2024-02-22] MEDS: gadobenate dimeglumine 20 mL vial 14 ML IV (15:43)
== END 2024-02-22 14:19 | disposition home or self-care (01) ==
LOC: RAD 14:18
PROVIDERS: PCP Nurse Practitioner Family; Visit Provider Internal Medicine Medical Oncology
DX: C34.90 Malignant neoplasm of unspecified part of unspecified bronchus or lung (principal); K76.9 Liver disease, unspecified; R51.9 Headache, unspecified; Z90.49 Acquired absence of other specified parts of digestive tract; Z90.710 Acquired absence of both cervix and uterus; R16.0 Hepatomegaly, not elsewhere classified
CPT/HCPCS: 74183

== ENCOUNTER 2024-02-23 13:48 | Outpatient (CLI) | payer MEDICARE, MEDICAID, SELFPAY ==
--- NOTE | 2024-02-23 14:30 | MR_ITS ---
WS: [id number] MRI HEAD WITH CONTRAST TECHNIQUE: Sagittal T1, T2 axial, T2 axial FLAIR, axial susceptibility weighted imaging, axial diffus ion weighted images, and coronal T2 images were obtained. Pre and post-T1 axial and post T1 coronal i mages. ADC and FSPGR images. CLINICAL INFORMATION: headache; lung cancer; liver lesion COMPARISON: None. FINDINGS: No evidence of restricted diffusion to suggest acute ischemia. No evidence of enhanced intracranial m etastatic disease. Normal dural venous sinuses. No evidence of mass or mass effect. No hemosiderin on susceptibility-weighted images. Normal optic chiasm and pituitary infundibulum. Mild symmetric atrop hy temporal lobes and hippocampal formations. Mild small vessel changes. Moderate parenchymal volume loss. Normal posterior fossa. Normal vascular flow voids at the skull base. No extra-axial fluid collection s. Small retention cyst LEFT maxillary sinus. Small retention cyst in the posterior nasopharynx. MR/MR head wo/w con [id number] IMPRESSION: 1. No evidence of restricted diffusion to suggest acute ischemia. 2. No abnormal gadolinium enhancement to indicate metastatic disease. 3. No evidence of mass or mass effect. 4. No other acute findings.
[2024-02-23] MEDS: gadobenate dimeglumine 20 mL vial 14 ML IV (14:59)
== END 2024-02-23 13:49 | disposition home or self-care (01) ==
LOC: RAD 13:48
PROVIDERS: PCP Nurse Practitioner Family; Visit Provider Internal Medicine Medical Oncology
DX: C34.90 Malignant neoplasm of unspecified part of unspecified bronchus or lung (principal); K76.9 Liver disease, unspecified; R51.9 Headache, unspecified
CPT/HCPCS: 70553

== ENCOUNTER 2024-03-06 13:47 | Oncology outpatient (recurring) (ONCR) | payer MEDICARE, MEDICAID, SELFPAY ==
[2024-02-09 09:10] LABS: Basophils % 0.4 %; Eosinophils % 0.3 %; Lymphocytes # 2.3 10^3/uL (0.8-4.8); Lymphocytes % 33.2 %; Mean Corpuscular HGB Conc 30.6 g/dL (30-55); Mean Corpuscular Hemoglobin 26.5 pg (27-33); Mean Corpuscular Volume 86.4 fl (85-98); Mean Platelet Volume 12.2 fL (7.4-10.4); Monocytes # 0.4 10^3/uL (0.2-0.9); Monocytes % 5.7 %; Nucleated Red Blood Cells % 0 %; Platelet Count 156 10^3/cmm (157-399); Red Blood Count 5.44 10^6/uL (3.85-5.65); Red Cell Distribution Width 15.7 % (12.1-15.1); White Blood Count 7.01 10^3/uL (3.29-11.43)
[2024-02-09 09:30] LABS: Estmated Average Glucose 180; Hemoglobin A1C 7.9 % (4.0-6.0)
[2024-02-09 09:37] LABS: Alanine Aminotransferase 11 U/L (0-33); Alkaline Phosphatase 106 U/L (35-105); Anion Gap 15.6 (5-19); Aspartate Amino Transferase 17 U/L (0-32); Blood Urea Nitrogen 11 mg/dL (8-23); Calcium 9.1 mg/dL (8.5-10.5); Carbon Dioxide 24 mmol/L (22-29); Chloride 103 mmol/L (98-107); Globulin 2.8 g/dL (1.3-4.6); Glomerular Filtration Rate 123.8 mL/min (90-130); Glucose 179 mg/dL (65-115); Osmolality Calculated 290 mOsm/kg (285-295); Potassium 4.6 mmol/L (3.5-5.1); Sodium 138 mmol/L (136-145); Thyroid Stimulating Hormone 3.01 uIU/mL (0.27-4.20); Total Bilirubin 0.8 mg/dL (0.15-1.2); Total Protein 6.8 g/dL (6.6-8.7)
--- NOTE | 2024-02-09 11:26 | N.ONRAD NP_ITS ---
Radiation Oncology New Patient Visit Patient: Jael Adame MR#: [id number] : 1960> Age: 63> Sex: Female> Dictated by: Dr. Екатерина Hayward Date of Service: 02/09/2024 Referring Physician(s) : Clinton Ibarra M.D. 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 Chief Complaint / History of Present Illness: Patient is a 63-year-old lady who has been recently diagnosed with a neuroendocrine cancer of the right upper lobe. It was grade 3. She has a significant cardiac history with cardiomyopathy and COPD. Her PET scan showed the mass in the right upper lobe and also an indeterminate 2.7 cm hypodense liver lesion which is currently being worked up. She is seen today in consultation to discuss SBRT for the mass in the lung. Current Medications: aspirin (Aspirin Childrens) 81 mg PO DAILY, bupropion HCl 150 mg PO QAM, cyclobenzaprine 10 mg PO TID PRN, famotidine 40 mg PO DAILY, hluyuypgdnx-vzfkwtglx-qmkxhsat 100-62.5-25 mcg (Trelegy Ellipta) 1 inh inhalation DAILY, gabapentin 300 mg PO DAILY, insulin glargine U-300 conc (Toujeo SoloStar U-300 Insulin) 30 units SUBCUT DAILY, insulin lispro 1 sliding scale dose SUBCUT QAM, levothyroxine 25 mcg PO DAILY, lisinopril 10 mg PO DAILY, metoprolol succinate ER 25 mg PO DAILY, montelukast (Singulair) 10 mg PO DAILY, pantoprazole (Protonix) 40 mg PO BID 6 weeks, rosuvastatin (Crestor) 20 mg PO DAILY, sitagliptin phosphate (Januvia) 100 mg PO DAILY, tramadol 50 mg PO Q6H PRN Allergies: Penicillins Allergy (Severe, Verified 02/09/24 08:00) Unknown Sulfa (Sulfonamide Antibiotics) Allergy (Severe, Verified 02/09/24 08:00) Unknown prednisone Allergy (Verified 02/09/24 08:00) ALGY-Redness of Skin Medical History: No history of collagen vascular disease. No previous radiation therapy. Benign neoplasm of neck COPD (chronic obstructive pulmonary disease) History of high blood pressure Type 2 diabetes mellitus Essential hypertension Cardiomyopathy Coronary artery disease Surgical History: History of cervical spinal surgery, History of cholecystectomy, History of hysterectomy Family History: Father Bleeding disorder Anesthesia complication Other CAD (coronary artery disease) Diabetes Social History: Smoking and tobacco/nicotine status: current some day tobacco/nicotine user Alcohol intake: never Substance/Drug Use: never Current Complaints / Review of Systems: . Vital Signs: Performed on 02/09/2024 8:46 AM BMI - 28.709 kg/m2 (high), Height - 60 in, Weight - 147 lbs, Temperature - 98.7 f, Pulse - 83 /min, Respiration - 17 /min, O2 Sat - 96 %, Pain - 0, Fatigue - 0 and BP - 116/ 80 mm(hg). Physical Exam: General Patient is a pleasant 63-year-old lady accompanied today by her ex- HEENT: Normocephalic atraumatic pupils are equal round reactive to light extraocular muscles intact sclera clear Pulmonary: Respiratory rate is regular nonlabored Cardiovascular: Regular rate and rhythm Abdomen: Soft and nontender without palpable masses Extremities: Without significant edema or lymphedema noted Neurological: Alert and orient x 3. Gait and speech within normal limits Psych: Affect appropriate for current situation Performance Status: 80 Pathology: Lab: Imaging: See HPI Impression: Neuroendocrine tumor of the right upper lobe Plan: I reviewed with her the findings on her PET scan. We talked about the biopsy that she had. We reviewed the SBRT for solitary lung lesions. We discussed the simulation process. We reviewed the daily treatment regiment. We discussed the risks and side effects both acute and long-term. We will take extra care with limiting the amount of lung in the field and avoiding her heart in order to minimize any long-term side effects. She verbalized understanding of the above and she is agreed to proceed. She will return to undergo simulation with a plan for a 5-day course of treatment spread over 2 to 3 weeks. Signed by: 02/09/2024 11:25:10 AM <<Signature on File>> Time spent with patient: 35 CPT Code: CPT Code:
--- NOTE | 2024-02-29 13:56 | ONCRAD EPV_ITS ---
Radiation Oncology Established Patient Visit Patient: Jael Adame [id number] : 1960 Age: 63 Sex: Female> Dictated by: Dr. Eduardo Ontiveros Date of Service: 02/29/2024 Referring Physician(s) : Clinton Ibarra M.D. Diagnosis: C34.11 - Malignant neoplasm of upper lobe, right bronchus or lung, Diagnosed 02/24/2024 (Active) Poorly differentiated carcinoma with neuroendocrine features. Radiotherapy to Date: None Current History: No symptomatic changes. Still with periodic nausea and vomiting unchanged with a 6 pound weight loss over last month or so. Still smoking . Reviewed MRI liver 02/22/2024: Likely FNH or adenoma or fibrolamellar hepatocellular carcinoma. Mets much less likely. Reviewed MRI brain 02/23/2024 negative for metastases. Vital Signs: Performed on 02/29/2024 9:52 AM BMI - 28.279 kg/m2 (high), Height - 60 in, Weight - 144.8 lbs, Temperature - 96.9 f, Pulse - 92 /min, Respiration - 18 /min, O2 Sat - 96 %, Pain - 0, Fatigue - 0 and BP - 135/ 76 mm(hg). Physical Exam: General: Alert and oriented x 3. No acute distress. HEENT: Normocephalic, atraumatic. Extraocular Movements Intact: Pupils Equal, Round, Reactive to Light and Accommodation: Sclerae anicteric. Oral cavity is clear without lesions, masses or ulcers. Very poor dentition Performance Status: ECOG 1 Lab: None pending. Pathology: Primary, c34.11 - malignant neoplasm of upper lobe, right bronchus or lung, Diagnosed 02/24/2024 (active) . Imaging: See HPI Impression: St II(T2 N0 M0) poorly differentiated carcinoma of left lung Plan on 50 Gy SBRT in 5 fractions over 2 week. Discussed with patient and spouse. Also discussed the critical need for smoking cessation. Signed by: 02/29/2024 1:55:19 PM <<Signature on File>> Time spent with patient: CPT Code: CPT Code:
== END 2024-03-06 23:59 | disposition home or self-care (01) ==
PROVIDERS: Internal Medicine Medical Oncology; PCP Nurse Practitioner Family; Visit Provider Radiology Radiation Oncology
DX: Z51.0 Encounter for antineoplastic radiation therapy (principal); C34.11 Malignant neoplasm of upper lobe, right bronchus or lung
CPT/HCPCS: 36415; 77300; 77301; 77334; 77338; 77373; 77470; 80053; 83036; 84443; 85025; 99024; 99205

== ENCOUNTER 2024-03-14 12:23 | Oncology outpatient (recurring) (ONCR) | payer MEDICARE, MEDICAID, SELFPAY | END 2024-03-14 23:59 | disposition home or self-care (01) | PROVIDERS: PCP Nurse Practitioner Family; Visit Provider Radiology Radiation Oncology | DX: Z51.0 Encounter for antineoplastic radiation therapy (principal); C34.11 Malignant neoplasm of upper lobe, right bronchus or lung | CPT/HCPCS: 77336; 77373 ==

== ENCOUNTER 2024-03-31 09:41 | Oncology outpatient (recurring) (ONCR) | payer MEDICARE, MEDICAID, SELFPAY ==
--- NOTE | 2024-03-16 14:40 | N.ONRD TS_ITS ---
Radiation Oncology Treatment Summary/ Treatment Management Note Patient: Wendi>Jael> MR#: [id number] : 1960> Age: 63> Sex: Female Dictated by: Dr. Екатерина Hayward Date of Service: 03/16/2024 Referring Physician(s) : Clinton Ibarra M.D. Diagnosis: C34.11 - Malignant neoplasm of upper lobe, right bronchus or lung, Diagnosed 02/24/2024 (Active) Radiotherapy to Date: Course: RUL [id number] SBRT, Treatment Site: RUL SBRT 5FX, Ref. ID: [id number], Energy: 6X, Dose/Fx (cGy): 1,000, #Fx: 5 / 5, Dose Correction (cGy): 0, Total Dose Delivered (cGy): 5,000, Start Date: 03/06/2024, End Date: 03/16/2024, Elapsed Days: 10 Clinical Summary: The patient tolerated RT well. She had no ill effects from the treatment. Plan: End of treatment today. Continue on the above medication until the skin reaction resolves. Follow up in one month. Signed by: Dr. Екатерина Hayward>03/16/2024 2:39:17 PM <<Signature on File>>
== END 2024-04-06 23:59 | disposition home or self-care (01) ==
PROVIDERS: PCP Nurse Practitioner Family; Visit Provider Radiology Radiation Oncology
DX: C34.11 Malignant neoplasm of upper lobe, right bronchus or lung (principal)
CPT/HCPCS: 77336; 77373; 99024; 99214

== ENCOUNTER → 2024-04-13 10:51 | Outpatient (BNVA) | payer MEDICARE, MEDICAID, SELFPAY | PROVIDERS: PCP Nurse Practitioner Family; Visit Provider Internal Medicine Cardiovascular Disease | DX: R07.9 Chest pain, unspecified (principal); I51.81 Takotsubo syndrome; I10 Essential (primary) hypertension; R00.2 Palpitations; I42.8 Other cardiomyopathies; C34.11 Malignant neoplasm of upper lobe, right bronchus or lung; F17.210 Nicotine dependence, cigarettes, uncomplicated; R94.31 Abnormal electrocardiogram [ECG] [EKG] | CPT/HCPCS: 93005; 99214 ==

== ENCOUNTER 2024-04-14 08:05 | Outpatient (CLI) | payer MEDICARE, MEDICAID, SELFPAY ==
[2024-04-14] MEDS: iohexol 350 mg/mL 500 mL Btl (per mL) PO (09:25)
[2024-04-14] MEDS: iohexol 350 mg/mL 500 mL Btl (per mL) IV (09:25)
--- NOTE | 2024-04-14 09:45 | CT_ITS ---
WS: [id number] CT CHEST, ABDOMEN AND PELVIS WITH CONTRAST HISTORY: lung cancer with liver lesion TECHNIQUE: Contiguous 5 mm axial imaging performed through the chest, abdomen and pelvis with IV cont rast, oral contrast has been provided. Coronal and sagittal reformats chest. Coronal and sagittal ref ormats through the abdomen and pelvis. All CT scans at [facility] use at least one of these d ose optimization techniques: automated exposure control; mA and/or kV adjustment per patient size (in cludes targeted exams where dose is matched to clinical indication); or iterative reconstruction. CONTRAST: Omnipaque 350; 100 mL IV. DLP: 802.78 mGy.cm COMPARISON: CT abdomen 09/23/2018, MRI abdomen 02/22/2024, chest CT 10/28/[address]: Reidentified is the known neoplasm RIGHT upper lobe with pleural tagging and tethering adrianne uring 2.0 x 1.7 x 1.8 cm. Soft tissue tagging extends to the pleura. There is a small amount of adjac ent groundglass attenuation. Masses significantly smaller in size as compared to the PET/CT of 01/11/20 24. No new mass or nodule. No mediastinal or hilar adenopathy. There has been a just a slight increas e in size of the inferior RIGHT paratracheal lymph node to 12 mm since the prior study. Mild atherosclerosis aorta. Normal size pulmonary artery. Heart is normal size. Mild increase in thor acic kyphosis. Abdomen CT: Liver is abnormal. Numerous metastatic liver lesions are identified. The largest mass is in the central liver splaying the middle and LEFT hepatic veins. Mass extends to the liver capsule wi th distortion and expansion. There is mild increased vascularity with central necrosis. There are num erous additional masses are scattered throughout the liver. The largest dominant mass measures 9.4 x 8.5 x 8.1 cm. No portal vein thrombus identified. This mass corresponds to the mass recently describe d by MRI on 02/22/2024. Prior cholecystectomy. Mild pancreatic atrophy. Normal size spleen with granulomata. No adrenal mass. Normal enhancement of each kidney. No obstruction. Moderate atherosclerotic plaque abdominal aorta. Calcified plaque at the origin of the celiac axis without significant stenosis. Calcification within the splenic artery. More coarse calcification in the distal splenic artery is a calcified aneurysm. No abdominal pelvic adenopathy. No GI tract obstruction. Normal appendix. There is a focal stricture involving the antrum of the stomach which is probably due to its peristalsis. No abnormality was note d involving the stomach on a prior PET/CT. Pelvic CT: Tiny amount of free fluid in the RIGHT pelvis. Normal urinary bladder. Sclerotic focus inferior endplate of T11 is probably a Schmorl's node. CT/CT chest abdpel [id number] IMPRESSION: 1. Decrease in size of the RIGHT upper lobe pulmonary neoplasm since the PET/C T of 01/11/2024. Mass measures 2.0 x 1.7 x 1.8 cm. On the prior PET/CT the diamet er was described at 4.2 cm. 2. Extensive progression of metastatic liver disease. Largest mass in the cent ral liver measures 9.4 x 8.5 x 8.1 cm. There are additional innumerable scatter ed hepatic metastases. 3. Indeterminate RIGHT inferior paratracheal lymph node measures 12 mm. Slight increase in size since the prior study. No adenopathy was noted on the recent PET/CT. 4. Prior cholecystectomy. 5. No metastatic disease to the adrenal glands. 6. Tiny amount of free fluid in the RIGHT pelvis.
[2024-04-14 10:11] LABS: Blood Urea Nitrogen 12 mg/dL (8-23); Glomerular Filtration Rate 123.4 mL/min (90-130)
== END 2024-04-14 08:06 | disposition home or self-care (01) ==
LOC: RAD 08:05
PROVIDERS: PCP Nurse Practitioner Family; Visit Provider Internal Medicine Hematology & Oncology
DX: C34.11 Malignant neoplasm of upper lobe, right bronchus or lung (principal); K76.9 Liver disease, unspecified; R59.0 Localized enlarged lymph nodes; D73.89 Other diseases of spleen; Z90.49 Acquired absence of other specified parts of digestive tract
CPT/HCPCS: 71260; 74177; 82565; 84520

== ENCOUNTER → 2024-04-19 10:33 | Day surgery (SDC) | payer MEDICARE, MEDICAID, SELFPAY ==
[2024-04-19 11:11] LABS: Glucose Point of Care 118 mg/dL (70-110)
[2024-04-19 11:12] VITALS: BP 106/78; PULSE 165; RESP 18; TEMP 36.9; O2SAT 94
[2024-04-19] MEDS: sodium chloride 0.9% 1,000 ML 30 ML IV (11:19)
--- NOTE | 2024-04-19 11:51 | ECG_ITS ---
[facility] Date[facility] 2024-04-19 Pat Name: Jael Adame Department: Room: Gender: Female Staff Readiness Officer: : 1960 Requested By: Maciej Harman Order Number: [id number] Gaby MD: Lauren Brothers M.D. Measurements Intervals [place] Rate: 144 P: 0 UT: 0 QRS: 59 QRSD: 82 T: 58 QT: 299 QTc: 463 Interpretive Statements ATRIAL FLUTTER/TACHYCARDIA WITH RAPID VENTRICULAR RESPONSE ABNORMAL RHYTHM ECG Compared to ECG 04/13/2024 10:56:07 Sinus rhythm no longer present Myocardial infarct finding no longer present Electronically Signed On 04-23-2024 20:55:58 ECONOMIC DEVELOPMENT DIRECTOR by Lauren Brothers M.D. [id number]
--- NOTE | 2024-04-19 12:00 | PC.NURSE ---
Pt noted to have heart rate of 165 upon arrival. Pt with history of A-fib. Heart rate noted to be irregular. JAN Robb notified. Orders received to get an EKG. Dr. Valentino at bedside. EGD/Colon cancelled at this time. Dr. Payne notified. Pt to ER via wheelchair directly to triage. DANYEL Bravo given report. 22 gauge IV to right forearm with NS at KVO left in place. Pt significant other with patient. Clothing and personal belongings with significant other.
== END ==
PROVIDERS: PCP Nurse Practitioner Family; Visit Provider Surgery
PROC: 0DJ08ZZ Inspection of Upper Intestinal Tract, Via Natural or Artificial Opening Endoscopic (ICD-10-PCS; CPT 43235; principal; 2024-04-19 12:00)
PROC: 0DJD8ZZ Inspection of Lower Intestinal Tract, Via Natural or Artificial Opening Endoscopic (ICD-10-PCS; CPT 45378; 2024-04-19 12:00)
DX: Z01.818 Encounter for other preprocedural examination (principal)
CPT/HCPCS: 36416; 82962; 93005; J2704; J7030

== ENCOUNTER 2024-04-19 12:06 | Inpatient (IN) | payer MEDICARE, MEDICAID, SELFPAY ==
[2024-04-19] VITALS (14 sets, daily range): BP systolic 93–118; BP diastolic 64–94; PULSE 79–184; RESP 18–28; TEMP 37.2–37.9; O2SAT 92–96; BMI 30.4; BMI 28.5
[2024-04-19] MEDS: dilTIAZem 5 mg/mL SDV 5 mL 10 MG IVP ×2 (12:39→12:58)
--- NOTE | 2024-04-19 12:46 | XR_ITS ---
WS: [id number] Portable AP upright chest, 04/19/2024 Clinical Data: dyspnea/cough Comparison: Portable chest, 09/23/2018 Findings: There is a minimal peripheral patchy opacity in the right upper lobe which could represent atelectasis and/or pneumonia. No nodules, masses or effusions are seen. The heart is normal. The pulm onary vascularity is not increased. No pneumothorax is seen. Monitor leads are on the chest wall. XR/XR chest 1V portable [id number] Impression: Minimal peripheral patchy opacity in right upper lobe which could represent pne umonia and/or atelectasis.
--- NOTE | 2024-04-19 12:46 | ECG_ITS ---
[facility] Test Date: 2024-04-19 Pat Name: Jael Adame Department: Room: Gender: Female Founder & Ceo: : 1960 Requested By: Greg Cabrera Order Number: [id number] Gaby MD: Lauren Brothers M.D. Measurements Intervals [place] Rate: 148 P: 0 MD: 0 QRS: 23 QRSD: 63 T: 42 QT: 289 QTc: 454 Interpretive Statements ATRIAL FIBRILLATION WITH RAPID VENTRICULAR RESPONSE WITH ABERRANT CONDUCTION OR VENTRICULAR PREMATURE COMPLEXES LOW QRS VOLTAGE IN PRECORDIAL LEADS [QRS DEFLECTION < 1.0 mV IN CHEST LEADS] SEPTAL MYOCARDIAL INFARCTION , PROBABLY OLD [40+ ms Q WAVE IN V1/V2] Compared to ECG 04/19/2024 11:51:30 Ventricular premature complex(es) now present Aberrant conduction of supraventricular beat(s) now present Low QRS voltage now present Myocardial infarct finding now present Atrial flutter no longer present Electronically Signed On 04-20-2024 21:25:53 STAMPING OPERATOR by Lauren Brothers M.D. [email or web address]
[2024-04-19] MEDS: dilTIAZem 100 MG in sodium chloride 0.9% (add-van) 100 ML IV (12:57)
[2024-04-19 13:01] LABS: Basophils % 0.1 %; Hematocrit 41.5 % (36-47); Lymphocytes # 1.2 10^3/uL (0.8-4.8); Lymphocytes % 14.7 %; Mean Corpuscular HGB Conc 31.1 g/dL (30-55); Mean Corpuscular Hemoglobin 26.5 pg (27-33); Mean Corpuscular Volume 85.4 fl (85-98); Mean Platelet Volume 12.8 fL (7.4-10.4); Monocytes # 1.1 10^3/uL (0.2-0.9); Monocytes % 13.6 %; Neutrophils # 5.77 10^3/uL (1.8-7.7); Neutrophils % 71.2 %; Nucleated Red Blood Cells % 0 %; Platelet Count 178 10^3/cmm (157-399); Red Blood Count 4.86 10^6/uL (3.85-5.65); Red Cell Distribution Width 17.3 % (12.1-15.1)
[2024-04-19 13:07] LABS: Alanine Aminotransferase 26 U/L (0-33); Albumin Level 3.3 g/dL (3.5-5.2); Alkaline Phosphatase 518 U/L (35-105); Anion Gap 17.2 (5-19); Aspartate Amino Transferase 52 U/L (0-32); Blood Urea Nitrogen 12 mg/dL (8-23); Calcium 8.2 mg/dL (8.5-10.5); Carbon Dioxide 23 mmol/L (22-29); Chloride 96 mmol/L (98-107); Creatinine Clr Calc Pharmacy 60.7203; Globulin 3.1 g/dL (1.3-4.6); Glomerular Filtration Rate 159.7 mL/min (90-130); Glucose 131 mg/dL (65-115); Osmolality Calculated 276 mOsm/kg (285-295); Potassium 4.2 mmol/L (3.5-5.1); Sodium 132 mmol/L (136-145); Total Protein 6.4 g/dL (6.6-8.7)
--- NOTE | 2024-04-19 14:06 | ED_ITS ---
HPI - Arrhythmia/Palpitations 2 General: Chief Complaint: Arrhythmia/Palpitations Stated Complaint: Afib with RVR Time Seen by Provider: 04/19/24 12:27 History of Present Illness: 64-year-old female presents emergency ro om with complaints of rapid heart rate. Patient has had a lot of nausea vomiting and diarrhea lately supposed to have EGD and colonoscopy done today underwent a prep and was still vomiting was not able to keep her metoprolol down she has a known history of A-fib she is not on any anticoagulant on arrival to preop and GI Lab she was found to be in A-fib with RVR. She is diverted to the emergency room she did not had any shortness of breath or chest discomfort at this time. No orthopnea. Patient has a known history of lung cancer for which she is currently undergoing treatment last radiation was 2 days ago. Related Data Home Medications Medication Instructions Recorded Confirmed aspirin 81 mg chewable tablet 81 mg PO DAILY 08/24/19 04/19/24 (Aspirin Childrens) bupropion HCl 150 mg 24 hr tablet, 150 mg PO QAM 08/24/19 04/19/24 extended release cyclobenzaprine 10 mg tablet 10 mg PO TID PRN Spasms 08/24/19 04/19/24 famotidine 40 mg tablet 40 mg PO DAILY 08/24/19 04/19/24 fluticasone fur. 100 mcg-umeclid 1 inh inhalation DAILY 08/24/19 04/19/24 62.5 mcg-vilant 25 mcg inhalat.powder (Trelegy Ellipta) gabapentin 300 mg capsule 300 mg PO DAILY 08/24/19 04/19/24 levothyroxine 25 mcg tablet 25 mcg PO DAILY 08/24/19 04/19/24 montelukast 10 mg tablet 10 mg PO DAILY 08/24/19 04/19/24 (Singulair) rosuvastatin 20 mg tablet (Crestor) 20 mg PO DAILY 08/24/19 04/19/24 tramadol 50 mg tablet 50 mg PO Q6H PRN Spasms 08/24/19 04/19/24 insulin glargine U-300 conc 300 30 unit SUBCUT DAILY 01/19/24 04/19/24 unit/mL (1.5 mL) subcutaneous pen (Srinivas Franks U-300 Insulin) insulin lispro 100 unit/mL 1 sliding scale dose SUBCUT QAM 01/19/24 04/19/24 subcutaneous pen lisinopril 10 mg tablet 10 mg PO DAILY 01/19/24 04/19/24 metoprolol succinate 25 mg 25 mg PO DAILY 01/19/24 04/19/24 tablet,extended release 24 hr sitagliptin phosphate 100 mg 100 mg PO DAILY 01/19/24 04/19/24 tablet (Januvia) tirzepatide 7.5 mg/0.5 mL 7.5 mg SUBCUT .WEEKLY 03/20/24 04/19/24 subcutaneous pen injector (Zackeryunbolivarro) Previous Rx's Medication Instructions Recorded pantoprazole 40 mg tablet,delayed 40 mg PO BID 6 weeks #84 tabs 01/17/24 release (Protonix) hydrocodone 10 mg-acetaminophen 1 tab PO Q6H PRN pain from liver 04/17/24 325 mg tablet metastasis 3 weeks #90 tabs Allergies Allergy/AdvReac Type Severity Reaction Status Date / Time Penicillins Allergy Severe Unknown Verified 04/13/24 09:57 Sulfa (Sulfonamide Allergy Severe Unknown Verified 04/13/24 09:57 Antibiotics) prednisone Allergy ALGY-Redness Verified 04/13/24 09:57 of Skin Review of Systems 2 Const: Denies: fever(s) or chills Card: Reports: palpitations and irregular heart rhythm; Denies: chest pain Resp: Denies: dyspnea GI: Denies: abdominal pain : Denies: dysuria, urinary frequency or urinary urgency Musc: Denies: neck pain or back pain Skin/Breast: Denies: rash PFSH ED 2 PFSH: Medical History Dyslipidemia Hypertrophic cardiomyopathy Obstructive sleep apnea Lung cancer Benign neoplasm of neck COPD (chronic obstructive pulmonary disease) History of high blood pressure Type 2 diabetes mellitus Essential hypertension Surgical History History of hysterectomy with bilateral oophorectomy History of bronchoscopy (12/27/23) Bronchoscopy/EBUS History of repair of right rotator cuff History of cholecystectomy Family History Father Bleeding disorder Anesthesia complication Mother Abdominal aneurysm Brother Heart disease Sister Diabetes Other CAD (coronary artery disease) Social History Smoking and tobacco/nicotine status: current some day tobacco/nicotine user cigarettes Packs smoked per day: 0.5 [ Other cigarette details: She previously smoked up to 3 PPD; currently 1/2 PPD.] Alcohol intake: never Substance/Drug Use: never Physical Exam 2 Const: COMMON NORMALS: no acute distress GENERAL APPEARANCE: cooperative and comfortable ORIENTATION/CONSCIOUSNESS: Yes awake, Yes oriented to person, Yes oriented to place and Yes oriented to time HENMT: COMMON NORMALS: normocephalic, atraumatic and hearing grossly normal bilaterally HEAD & SCALP: normocephalic and atraumatic Resp: COMMON NORMALS: normal respiratory effort, No retractions, No use of accessory muscles and clear to auscultation bilaterally AUSCULTATION: clear to auscultation bilaterally Cardio: COMMON NORMALS: No murmurs present (Cardio) RATE: tachycardic R HYTHM: abnormal rhythm irregularly irregular GI: COMMON NORMALS: Soft to palpation and No hepatosplenomegaly present A USCULTATION: Yes normoactive bowel sounds PALPATION: Yes Soft to palpation, No Tenderness to palpation present (GI), No Guarding due to palpation present (GI) and Yes No hepatosplenomegaly present Extremity: COMMON NORMALS: normal to inspection, capillary refill normal, no clubbing, cyanosis or edema, no calf tenderness and no pedal edema Neuro: SENSORIUM/ORIENTATION: Yes oriented to person, Yes oriented to place and Yes oriented to time Skin: COMMON NORMALS: no rashes or lesions noted GENERAL SKIN EXAM: no rashes or lesions noted Course 2 Vital Signs: Vital signs: Vital Signs Temperature 98.9 F 04/19/24 12:09 Pulse Rate 122 H 04/19/24 14:15 Respiratory Rate 21 H 04/19/24 13:45 Blood Pressure 100/67 04/19/24 14:15 Pulse Oximetry 93 04/19/24 14:15 Oxygen Delivery Me thod Room Air 04/19/24 12:23 MDM - Arrhythmia/Palpitations Medical Decision Making A-fib with RVR the first plan was to try to get the patient converted orally slowed down enough that we can still do endoscopy today I discussed with Dr. Payne as Dr. Grissom very they agreed however she failed to respond to Cardizem she was switched to amiodarone she we are still having difficulty controlling her rate. Blood pressure has been tolerable. Will admit discussed with Dr. Clemente who has been to the department seeing the patient. Orders written Lab Data 04/19/24 12:27 04/19/24 12:27 Radiology Impressions Chest X-Ray 04/19/24 12:46 Impression: Minimal peripheral patchy opacity in right upper lobe which could represent pneumonia and/or atelectasis. Laboratory Results WBC 8.10 10^3/uL (3.29-11.43) 04/19/24 12: RBC 4.86 10^6/uL (3.85-5.65) 04/19/24 12: Hgb 12.90 g/dL (11.27-16.99) 04/19/24 12: Hct 41.5 % (36-47) 04/19/24 12: MCV 85.4 fl (85-98) 04/19/24 12: MCH 26.5 pg (27-33) L 04/19/24 12:27 MCHC 31.1 g/dL (30-55) 04/19/24 12: RDW 17.3 % (12.1-15.1) H 04/19/24 12:27 Plt Count 178 10^3/cmm (157-399) 04/19/24 12:27 MPV 12.8 fL (7.4-10.4) H 04/19/24 12: Neut % (Auto) 71.2 % 04/19/24 12: Lymph % (Auto) 14.7 % 04/19/24 12:27 [place] % (Auto) 13.6 % 04/19/24 12: Eos % (Auto) 0.0 % 04/19/24 12: Baso % (Auto) 0.1 % 04/19/24 12: Neut # (Auto) 5.77 10^3/uL (1.8-7.7) 04/19/24 12: Lymph # (Auto) 1.2 10^3/uL (0.8-4.8) 04/19/24 12:27 [place] # (Auto) 1.1 10^3/uL (0.2-0.9) H 04/19/24 12:27 Eos # (Auto) 0.0 10^3/uL (0.0-0.8) 04/19/24 12:27 Baso # (Auto) 0.0 10^3/uL (0.0-0.1) 04/19/24 12:27 Nucleated RBC % (auto) 0 % 04/19/24 12: Nucleated RBCs # 0.0 /100WBC 04/19/24 12:27 Sodium 132 mmol/L (136-145) L 04/19/24 12:27 Potassium 4.2 mmol/L (3.5-5.1) 04/19/24 12:27 Chloride 96 mmol/L (98-107) L 04/19/24 12:27 Carbon Dioxide 23 mmol/L (22-29) 04/19/24 12:27 Anion Gap 17.2 (5-19) 04/19/24 12:27 BUN 12 mg/dL (8-23) 04/19/24 12:27 Creatinine 0.4 mg/dL (0.5-0.9) L 04/19/24 12:27 GFR Calculation 159.7 mL/min (90-130) H 04/19/24 12:27 Glucose 131 mg/dL (65-115) H 04/19/24 12:27 Calculated Osmolality 276 mOsm/kg (285-295) L 04/19/24 12:27 Calcium 8.2 mg/dL (8.5-10.5) L 04/19/24 12:27 Total Bilirubin 1.0 mg/dL (0.15-1.2) 04/19/24 12:27 AST 52 U/L (0-32) H 04/19/24 12:27 ALT 26 U/L (0-33) 04/19/24 12:27 Alkaline Phosphatase 518 U/L (35-105) H 04/19/24 12:27 Total Protein 6.4 g/dL (6.6-8.7) L 04/19/24 12:27 Albumin 3.3 g/dL (3.5-5.2) L 04/19/24 12:27 Globulin 3.1 g/dL (1.3-4.6) 04/19/24 12:27 All radiology interpretation(s) finalized by discharge Discharge Plan Discharge Patient Disposition: Admitted As Inpatient Clinical Impression: Atrial fibrillation with RVR, Nonischemic cardiomyopathy, Malignant neoplasm of upper lobe, right bronchus or lung, Metastasis to liver Condition: Stable Prescriptions: No Action lisinopril 10 mg tablet 10 mg PO DAILY metoprolol succinate 25 mg tablet extended release 24 hr 25 mg PO DAILY insulin lispro 100 unit/mL insulin pen 1 sliding scale dose SUBCUT QAM insulin glargine U-300 conc [Toujeo SoloStar U-300 Insulin] 300 unit/mL (1.5 mL) insulin pen 30 unit SUBCUT DAILY Januvia 100 mg tablet 100 mg PO DAILY pantoprazole [Protonix] 40 mg tablet,delayed release (DR/EC) 40 mg PO BID 42 Days Qty: 84 1RF hydrocodone-acetaminophen 10-325 mg tablet 1 tab PO Q6H PRN (Reason: pain from liver metastasis) 21 Days Qty: 90 0RF cyclobenzaprine 10 mg Tablet 10 mg PO TID PRN (Reason: Spasms) famotidine 40 mg Tablet 40 mg PO DAILY gabapentin 300 mg Capsule 300 mg PO DAILY aspirin [Aspirin Childrens] 81 mg Tablet,Chewable 81 mg PO DAILY rosuvastatin [Crestor] 20 mg Tablet 20 mg PO DAILY bupropion HCl 150 mg Tablet Extended Release 24 Hr 150 mg PO QAM tramadol 50 mg Tablet 50 mg PO Q6H PRN (Reason: Spasms) levothyroxine 25 mcg Tablet 25 mcg PO DAILY montelukast [Singulair] 10 mg Tablet 10 mg PO DAILY Trelegy Ellipta 100-62.5-25 mcg Blister With Device 1 inh INHALATION DAILY Mounjaro 7.5 mg/0.5 mL pen injector 7.5 mg SUBCUT .WEEKLY Referrals: Lavern Henderson, CHAIN PULLER-C [Primary Care Provider] - Coding Level of Care Code ED Hyperion Administrator for Samantha Cruz
[2024-04-19] MEDS: amiodarone 150 MG/100 ML PREMIX 400 MG IV (14:08)
[2024-04-19 15:41] LABS: INR 1.17 (0.8-1.2)
[2024-04-19 15:44] LABS: D Dimer 3.45 ug/mLFEU (0-0.59)
[2024-04-19] MEDS: metoprolol tartrate 25 mg Tablet PO ×2 (15:48→20:57)
[2024-04-19 15:54] LABS: Procalcitonin 53.14 ng/mL (0-0.5)
--- NOTE | 2024-04-19 16:42 | CTR_ITS ---
PROCEDURE INFORMATION: Exam: CTA Chest With Contrast Exam date and time: 04/19/2024 6:11 PM Age: 64 years old Clinical indication: Abnormal findings; Other: Elev d-dimer; Additional info: Elevated dimer TECHNIQUE: Imaging protocol: Computed tomographic angiography of the chest with contrast. Exam focused on the arteries. 3D rendering (Not supervised by radiologist): MIP and/or 3D reconstructed images were created by the technologist. Radiation optimization: All CT scans at this facility use at least one of these dose optimization techniques: automated exposure control; mA and/or kV adjustment per patient size (includes targeted exams where dose is matched to clinical indication); or iterative reconstruction. Contrast material: OMNI 350; Contrast volume: 100 ml; Contrast route: INTRAVENOUS (IV); COMPARISON: CT chest abdpel w/*[id number] 04/14/2024 9:46 AM RADIATION DOSE METRICS: Total DLP (mGy-cm): 363.16 FINDINGS: Pulmonary arteries: Pulmonary arteries are adequately visualized to the segmental and in most cases the subsegmental level. No filling defects are identified to suggest pulmonary artery embolism. Main pulmonary artery is normal in size. There is no evidence of right heart strain. Aorta: Atherosclerotic calcifications of the aorta are present. No aneurysm is identified. Lungs: Possible slight increased cavitation in 2 cm right upper lobe pulmonary nodule. No pulmonary consolidation pulmonary infarct. Pleural spaces: No pleural effusion or pneumothorax. Heart: Heart size is within normal limits. Trace pericardial fluid appears stable. Coronary arteries: Moderate coronary artery calcification. Lymph nodes: Stable mildly enlarged precarinal paratracheal lymph nodes. Liver: Liver metastases better seen on recent CT abdomen and pelvis Bones/joints: No acute osseous abnormalities are seen. Stable inferior endplate height loss of T11. Soft tissues: Unremarkable. CT/CT angio chest PE protcl [id number] IMPRESSION: Possible slight increased cavitation in 2 cm right upper lobe pulmonary nodule.
--- NOTE | 2024-04-19 16:42 | PM.HP ---
Providers/Chief Complaint Admitting Physician: Deon Thurman MD Primary Care Provider: Lavern Henderson THREAD PULLING MACHINE ATTENDANT-C Chief Complaint: Afib with RVR History of Present Illness Jael Adame is a 64 year old female with past medical history of lung cancer post SBRT with significant liver mets., Diabetes mellitus, hypothyroidism, A-fib on metoprolol not on anticoagulation presented to the GI lab for endoscopy today and was found to have A-fib with RVR hence was sent to the ER. As per the patient she has been having significant nausea and vomiting for the last 4 months with not able to keep even liquids down. She has been able to keep her medications down except today which she had prescription for planned endoscopy. She denies previous admission to the hospital for A-fib. Has never been on anticoagulation except baby aspirin. Currently complains of mild palpitations but denies of any chest pain. States shortness of breath is not worse than her baseline. Denies abdominal pain or headache or dizziness. Review of Systems General: Reports: 10 or more systems reviewed and unremarkable except in HPI and below Const: Denies: fever(s), chills, body aches, change in appetite, change in weight, malaise, night sweats, diaphoresis, change in sleep pattern, daytime sleepiness or snoring Eyes: Denies: change in vision, blurry vision, photophobia, eye discomfort or eye discharge ENMT: Denies: throat pain, enlarged tonsils, hoarseness, mouth pain, oral sores, dry mouth, tinnitus, nasal congestion or post nasal drip Card: Denies: chest pain, palpitations, irregular heart rhythm, edema, swelling of feet/ankles, lightheadedness, syncope, pre-syncope, dyspnea on exertion, orthopnea, leg pain with exertion or acrocyanosis Resp: Denies: dyspnea, productive cough, non-productive cough, wheezing, stridor, pain on inspiration, change in phlegm color, hemoptysis or chest congestion GI: Denies: abdominal pain, nausea, vomiting, hematemesis, coffee ground emesis, dysphagia, heartburn, diarrhea, constipation, bloating, GI cramping, change in bowel habits, pain on defecation, hematochezia or melena : Denies: flank pain, dysuria, urinary frequency, urinary urgency, urinary hesitancy, nocturia or hematuria Musc: Denies: neck pain, back pain, extremity pain, joint pain, joint swelling, joint redness, joint stiffness or limited range of motion Neuro: Denies: headache(s), numbness in extremities, weakness in extremities, sensory changes, lack of coordination, difficulty walking, frequent falls, dizziness, vertigo, confusion, Slurred speech present, difficulty communicating thoughts or seizure-like activity Psych: Denies: anxiety, depression, mood swings, panic attacks, hopelessness or irritability Endo: Denies: polyuria, polydipsia, tired all the time, cold intolerance, excessive sweating, flushing or heat intolerance Randall/Lymph: Denies: easy bruising or easy bleeding All/Imm: Denies: tongue swelling, facial swelling or acute wheezing Medications/Allergies Home Medications Medication Instructions Recorded Confirmed Last Taken Type aspirin 81 mg chewable tablet 81 mg PO DAILY 08/24/19 04/19/24 04/18/24 History (Aspirin Childrens) bupropion HCl 150 mg 24 hr tablet, 150 mg PO QAM 08/24/19 04/19/24 04/18/24 History extended release cyclobenzaprine 10 mg tablet 10 mg PO TID PRN Spasms 08/24/19 04/19/24 04/18/24 History famotidine 40 mg tablet 40 mg PO DAILY 08/24/19 04/19/24 04/18/24 History fluticasone fur. 100 mcg-umeclid 1 inh inhalation DAILY 08/24/19 04/19/24 04/18/24 History 62.5 mcg-vilant 25 mcg inhalat.powder (Trelegy Ellipta) gabapentin 300 mg capsule 300 mg PO DAILY 08/24/19 04/19/24 04/18/24 History levothyroxine 25 mcg tablet 25 mcg PO DAILY 08/24/19 04/19/24 04/18/24 History montelukast 10 mg tablet 10 mg PO DAILY 08/24/19 04/19/24 04/18/24 History (Singulair) rosuvastatin 20 mg tablet (Crestor) 20 mg PO DAILY 08/24/19 04/19/24 04/18/24 History tramadol 50 mg tablet 50 mg PO Q6H PRN Spasms 08/24/19 04/19/24 04/18/24 History pantoprazole 40 mg tablet,delayed 40 mg PO BID 6 weeks #84 tabs 01/17/24 04/19/24 04/18/24 Rx release (Protonix) insulin glargine U-300 conc 300 30 unit SUBCUT DAILY 01/19/24 04/19/24 04/18/24 History unit/mL (1.5 mL) subcutaneous pen (Toujeo SoloStar U-300 Insulin) insulin lispro 100 unit/mL 1 sliding scale dose SUBCUT QAM 01/19/24 04/19/24 04/18/24 History subcutaneous pen lisinopril 10 mg tablet 10 mg PO DAILY 01/19/24 04/19/24 04/19/24 History metoprolol succinate 25 mg 25 mg PO DAILY 01/19/24 04/19/24 04/18/24 History tablet,extended release 24 hr sitagliptin phosphate 100 mg 100 mg PO DAILY 01/19/24 04/19/24 04/18/24 History tablet (Januvia) tirzepatide 7.5 mg/0.5 mL 7.5 mg SUBCUT .WEEKLY 03/20/24 04/19/24 04/18/24 History subcutaneous pen injector (Mounjaro) hydrocodone 10 mg-acetaminophen 1 tab PO Q6H PRN pain from liver 04/17/24 04/19/24 04/18/24 Rx 325 mg tablet metastasis 3 weeks #90 tabs Allergies Allergy/AdvReac Type Severity Reaction Status Date / Time Penicillins Allergy Severe Unknown Verified 04/13/24 09:57 Sulfa (Sulfonamide Allergy Severe Unknown Verified 04/13/24 09:57 Antibiotics) prednisone Allergy ALGY-Redness Verified 04/13/24 09:57 of Skin PFSH Acute PFSH: Medical History (Updated 04/19/24 @ 16:52 by Deon Thurman MD) Dyslipidemia Hypertrophic cardiomyopathy Obstructive sleep apnea Lung cancer Benign neoplasm of neck COPD (chronic obstructive pulmonary disease) History of high blood pressure Type 2 diabetes mellitus Essential hypertension Surgical History History of hysterectomy with bilateral oophorectomy History of bronchoscopy (12/27/23) Bronchoscopy/EBUS History of repair of right rotator cuff History of cholecystectomy Family History Father Bleeding disorder Anesthesia complication Mother Abdominal aneurysm Brother Heart disease Sister Diabetes Other CAD (coronary artery disease) Social History Smoking and tobacco/nicotine status: current some day tobacco/nicotine user cigarettes Packs smoked per day: 0.5 [ Other cigarette details: She previously smoked up to 3 PPD; currently 1/2 PPD.] Alcohol intake: never Substance/Drug Use: never Vitals/I&O/Wt Last Vital Signs Temp 98.9 F 04/19/24 12:09 Pulse 122 H 04/19/24 14:15 Resp 21 H 04/19/24 13:45 BP 100/67 04/19/24 14:15 Pulse Ox 93 04/19/24 14:15 O2 Del Method Room Air 04/19/24 12:23 04/19/24 04/19/24 04/19/24 06:59 14:59 22:59 Intake Total 111.834 / 111.834 Balance 111.834 / 111.834 Weight last 48 hrs Weight 70.76 kg Physical Exam Narrative: General: No acute distress, AO x3, chronically sick appearing, frail HEENT: PERRLA, pupils bilaterally equal and reactive Chest: Bilateral bronchial breath sounds all over lung bennett with occasional rhonchi and crackles CVS: S1-S2 regular, no murmurs, no tachycardia, no gallops, no rubs Abdomen: Soft, nontender, soft organomegaly and right upper quadrant, bowel sounds present Neuro: No focal deficits, no facial deformity, AO x3, power 5/5 in all limbs Data 04/19/24 12:27 04/19/24 12:27 A&P Assessment and plan (1) Atrial fibrillation with RVR: Chronic history. Not on anticoagulation. Failed treatment with full dose Cardizem and drip in the ER. Receiving amiodarone after amiodarone bolus. For now we will continue the drip as per protocol. Monitor heart rate. Target heart rate below 100. Restart metoprolol at 25 mg twice daily. Will uptitrate as for goal blood pressures of more than 100/60 mmHg and less than 140/90 mmHg. If not able to control heart rate with amiodarone will plan to start on digoxin load in AM. Hold off on anticoagulation for now. Patient apparently had echocardiogram few days ago. Will confirm from echo lab. Appreciate recent TSH. Check D-dimer. If D-dimer is elevated will plan for CTA. (2) Nausea and vomiting: Most likely in setting of liver mets. Cannot rule out gastroparesis in setting of chronic type 2 diabetes mellitus. Keep n.p.o. for now. Patient was planned for endoscopy earlier today morning. Surgery consulted from the ER. Will plan for endoscopy during inpatient. Empirically start on Reglan 5 mg Q8 hourly. Zofran as needed. Monitor QTc. Protonix twice daily (3) Essential hypertension: Blood pressure less than 140/90 mmHg. Takes metoprolol and lisinopril 10 mg oral at home. Continue metoprolol as above. Holding off on lisinopril for now. Will restart as per goal blood pressures. (4) Malignant neoplasm of upper lobe, right bronchus or lung: Post SBRT. Follows up with oncology as an outpatient. (5) Metastasis to liver: Check INR. Appreciate LFTs. (6) COPD (chronic obstructive pulmonary disease) with emphysema: Not in exacerbation. For now start on Pulmicort twice daily, ipratropium, Xopenex every 6 hour. Hold off on steroids for now. Oxygen supplementation keeping saturation over 90%. No pneumonia for now. Qualifiers: Emphysema type: other Qualified Code(s): J43.8 - Other emphysema (7) Type 2 diabetes mellitus: Last A1c 7.9 from 02/28. Insulin sliding scale. Continue with Lantus but will start at a half dose 15 units nightly given patient's n.p.o. status. (8) Nonischemic cardiomyopathy: Past history of nonischemic cardiomyopathy in setting of Takotsubo. Last echocardiogram from February 2024 showed an EF of 60%. Not in CHF currently. Plan CODE STATUS: Discussed in detail with the patient. Patient's son and spouse will be the DPOA. Full code. N.p.o. with ice and chips for now. Protonix OPD prophylaxis Heparin 5000 every 12 hourly for DVT prophylaxis Attestations Medical Necessity Statement*: Admission for more than 2 midnights for management of A-fib with RVR, persistent nausea and vomiting while patient requires EGD for further evaluation, lung cancer with liver mets Diagnoses Atrial fibrillation with RVR I48.91 Nausea and vomiting R11.2 Essential hypertension I10 Malignant neoplasm of upper lobe, right bronchus or lung C34.11 Metastasis to liver C78.7 Other emphysema J43.8 Emphysema type: other Type 2 diabetes mellitus E11.9 Nonischemic cardiomyopathy I42.8
--- NOTE | 2024-04-19 16:46 | PC.NURSE ---
Patient transferred to CSU from ED via a bed 1645, amio and NS running.
[2024-04-19] MEDS: sodium chloride 0.9% 1,000 ML 75 ML IV ×2 (17:12→18:30)
[2024-04-19 17:22] LABS: Iron 18 ug/dL (37-145); Percent Saturation 6.5 % (20-50); Total Iron Binding Capacity 276 mcg/dl; Unsaturated Iron Binding 258 ug/dL (112-347)
[2024-04-19 17:35] LABS: Amphetamines Screen Urine Negative (Negative); Barbiturates Screen Urine Negative (Negative); Benzodiazepines Screen Urine Negative (Negative); Cocaine Screen Urine Negative (Negative); Opiate Screen Urine Positive (Negative); PCP Screen Urine Negative (Negative); THC Screen Urine Negative (Negative)
[2024-04-19] MEDS: pantoprazole 40 mg SDV IVP (17:41)
[2024-04-19] MEDS: metoclopramide 5 mg/mL SDV 2 mL IVP ×2 (17:41→22:06)
[2024-04-19 17:42] LABS: Add Urine Microscopic? YES; Urine Appearance Cloudy (CLEAR)
[2024-04-19 17:42] LABS: Glucose Point of Care 142 mg/dL (70-110)
[2024-04-19] MEDS: heparin 5,000 unit/mL INJ 1 mL 5000 UNIT SUBCUT (17:42)
[2024-04-19 17:43] LABS: Urine Color Dark Yellow (Yellow)
[2024-04-19 17:44] LABS: Add Urine Culture? No; Bacteria Urine 4+ /hpf; UA Manual Slide Review YES; WBC Urine 0-4 /hpf (0-5)
[2024-04-19 18:01] LABS: Vitamin B12 1382 pg/mL (232-1245)
[2024-04-19] MEDS: iohexol 350 mg/mL 500 mL Btl (per mL) IV (18:17)
[2024-04-19 20:18] LABS: Glucose Point of Care 146 mg/dL (70-110)
[2024-04-19] MEDS: levalbuterol 0.63 mg/3 mL Neb INHALATION (21:41)
[2024-04-19] MEDS: budesonide 0.5 mg/2 mL Neb INHALATION (21:41)
[2024-04-19] MEDS: ipratropium 0.5 mg/2.5 mL Neb INHALATION (21:41)
[2024-04-19] MEDS: meropenem 1,000 mg SDV 1000 MG IVP (22:06)
--- NOTE | 2024-04-19 22:16 | PC.NURSE ---
spoke with patient about home medication of insulin, patient stated that she will have her bring in the insulin tomorrow if they tell her she has to stay the night again.
[2024-04-20] VITALS (13 sets, daily range): BP systolic 98–129; BP diastolic 59–79; PULSE 74–97; RESP 16–26; TEMP 36.4–37.7; O2SAT 90–95
[2024-04-20 00:09] LABS: Adenovirus Not Detected (NOT DETECT); Chlamydia Pneumoniae Not Detected (NOT DETECT); Coronavirus 229E,HKU1,NL63,OC4 Not Detected (NOT DETECT); Human Metapneumovirus Not Detected (NOT DETECT); Human Rhinovirus/Enterovirus Not Detected (NOT DETECT); Influenza A Not Detected (NOT DETECT); Influenza A H1 Not Detected (NOT DETECT); Influenza A H1-2009 Not Detected (NOT DETECT); Influenza A H3 Not Detected (NOT DETECT); Influenza B Not Detected (NOT DETECT); Mycoplasma Pneumoniae Not Detected (NOT DETECT); Parainfluenza Virus Type 1 Not Detected (NOT DETECT); Parainfluenza Virus Type 2 Not Detected (NOT DETECT); Parainfluenza Virus Type 3 Not Detected (NOT DETECT); Parainfluenza Virus Type 4 Not Detected (NOT DETECT); Respiratory Syncytial Virus A Not Detected (NOT DETECT); Respiratory Syncytial Virus B Not Detected (NOT DETECT); SARS-COV-2 Not Detected (NOT DETECT)
[2024-04-20] MEDS: levalbuterol 0.63 mg/3 mL Neb INHALATION ×2 (03:26→07:40)
[2024-04-20] MEDS: ipratropium 0.5 mg/2.5 mL Neb INHALATION ×2 (03:26→07:40)
[2024-04-20 04:05] LABS: Basophils % 0.2 %; Hematocrit 35.5 % (36-47); Lymphocytes # 0.9 10^3/uL (0.8-4.8); Lymphocytes % 14.3 %; Mean Corpuscular HGB Conc 30.4 g/dL (30-55); Mean Corpuscular Hemoglobin 26.5 pg (27-33); Mean Platelet Volume 12.9 fL (7.4-10.4); Monocytes # 0.8 10^3/uL (0.2-0.9); Monocytes % 12.4 %; Neutrophils # 4.62 10^3/uL (1.8-7.7); Neutrophils % 72.5 %; Nucleated Red Blood Cells % 0 %; Platelet Count 160 10^3/cmm (157-399); Red Blood Count 4.08 10^6/uL (3.85-5.65); Red Cell Distribution Width 17.4 % (12.1-15.1); White Blood Count 6.37 10^3/uL (3.29-11.43)
[2024-04-20 04:25] LABS: Alanine Aminotransferase 21 U/L (0-33); Albumin Level 2.8 g/dL (3.5-5.2); Alkaline Phosphatase 466 U/L (35-105); Anion Gap 13.7 (5-19); Aspartate Amino Transferase 35 U/L (0-32); Blood Urea Nitrogen 8 mg/dL (8-23); Calcium 7.7 mg/dL (8.5-10.5); Carbon Dioxide 24 mmol/L (22-29); Chloride 101 mmol/L (98-107); Chol HDL Ratio 4.31 mg/dL (0.0-4.40); Cholesterol 69 mg/dL (0-200); Creatinine Clr Calc Pharmacy 58.8159; Globulin 2.6 g/dL (1.3-4.6); Glomerular Filtration Rate 159.7 mL/min (90-130); Glucose 145 mg/dL (65-115); HDL Cholesterol 16 mg/dL (60-100); LDL Cholesterol Calculated 31 mg/dL (50-129); LDL HDL Ratio 1.94 RATIO (0.00-3.22); Magnesium 1.6 mg/dL (1.7-2.3); Osmolality Calculated 281 mOsm/kg (285-295); Phosphorus 1.5 mg/dL (2.5-4.5); Potassium 3.7 mmol/L (3.5-5.1); Sodium 135 mmol/L (136-145); Total Bilirubin 0.5 mg/dL (0.15-1.2); Total Protein 5.4 g/dL (6.6-8.7); Triglycerides 110 mg/dL (0-150)
[2024-04-20 04:30] LABS: Procalcitonin 51.52 ng/mL (0-0.5)
[2024-04-20 04:37] LABS: Folate Level 9.8 ng/mL (4.8-37.3)
[2024-04-20] MEDS: heparin 5,000 unit/mL INJ 1 mL 5000 UNIT SUBCUT ×2 (05:13→17:33)
[2024-04-20] MEDS: buPROPion XL (24 HR) 150 mg Tablet PO (05:13)
[2024-04-20] MEDS: metoclopramide 5 mg/mL SDV 2 mL IVP (05:14)
[2024-04-20] MEDS: meropenem 1,000 mg SDV 1000 MG IVP (05:18)
[2024-04-20] MEDS: water for injection-sterile 20 ML 99 ML (05:18)
[2024-04-20] MEDS: pantoprazole 40 mg SDV IVP ×2 (05:19→17:32)
[2024-04-20 06:24] LABS: Glucose Point of Care 164 mg/dL (70-110)
[2024-04-20] MEDS: budesonide 0.5 mg/2 mL Neb INHALATION (07:40)
[2024-04-20] MEDS: atorvastatin 40 mg Tablet 80 MG PO (08:40)
[2024-04-20] MEDS: metoprolol tartrate 25 mg Tablet PO (08:41)
[2024-04-20] MEDS: levothyroxine 25 mcg Tablet PO (08:41)
[2024-04-20] MEDS: gabapentin 300 mg Capsule PO (08:41)
[2024-04-20] MEDS: sodium chloride 0.9% 1,000 ML 75 ML IV (08:42)
[2024-04-20] MEDS: magnesium sulfate premix 1 GM/100 ML PIGGYBACK IV (10:15)
[2024-04-20] MEDS: insulin glargine 100 units/1 mL 15 UNIT SUBCUT (10:16)
[2024-04-20 11:48] LABS: Glucose Point of Care 196 mg/dL (70-110)
--- NOTE | 2024-04-20 12:20 | PC.NURSE ---
Patient left unit for GI lab at 1200.
--- NOTE | 2024-04-20 12:36 | P.ANESASSM_ITS ---
Pre-Anesthetic Assessment Height/Weight: Height 5 ft Weight 152 lb 1.903 oz Temp Pulse Resp BP Pulse Ox O2 Del Method FiO2 99.5 F 89 18 123/69 91 Room Air 21 04/20/24 12:13 04/20/24 12:13 04/20/24 12:13 04/20/24 12:13 04/20/24 12:13 04/20/24 12:13 04/20/24 07:42 Preop Diagnosis: Colonoscopy Operation Date: 04/20/24 13:05 Proposed Procedures p EGD(Not Applicable) - Dequan Payne DO s Colonoscopy(Not Applicable) - Dequan Payne DO Was Beta Roxi taken within 24 hours: Yes Was Clonidine taken within 24 hours: N/A Social No alcohol and No tobacco Exam alert, oriented x 3 and clear to auscultation bilaterally A-fib Airway Submandibular: within normal limits Cervical ROM: within normal limits Mallampati: Class II Dentition: false Anesthetic Plan ASA status: 3 Anesthesia: MAC Other: Patient presented for procedure yesterday and was in A-fib with RVR and sent to the ER No prior issues with anesthesia History of lung cancer status post radiation but does have significant liver mets Type 2 diabetes on insulin. BS 145 this a.m. Patient was placed on amiodarone drip which is currently still running Plan for MAC anesthetic Medications/Allergies Home Medications Medication Instructions Recorded Confirmed Last Taken Type aspirin 81 mg chewable tablet 81 mg PO DAILY 08/24/19 04/19/24 04/18/24 History (Aspirin Childrens) bupropion HCl 150 mg 24 hr tablet, 150 mg PO QAM 08/24/19 04/19/24 04/18/24 History extended release cyclobenzaprine 10 mg tablet 10 mg PO TID PRN Spasms 08/24/19 04/19/24 04/18/24 History famotidine 40 mg tablet 40 mg PO DAILY 08/24/19 04/19/24 04/18/24 History fluticasone fur. 100 mcg-umeclid 1 inh inhalation DAILY 08/24/19 04/19/24 04/18/24 History 62.5 mcg-vilant 25 mcg inhalat.powder (Trelegy Ellipta) gabapentin 300 mg capsule 300 mg PO DAILY 08/24/19 04/19/24 04/18/24 History levothyroxine 25 mcg tablet 25 mcg PO DAILY 08/24/19 04/19/24 04/18/24 History montelukast 10 mg tablet 10 mg PO DAILY 08/24/19 04/19/24 04/18/24 History (Singulair) rosuvastatin 20 mg tablet (Crestor) 20 mg PO DAILY 08/24/19 04/19/24 04/18/24 History tramadol 50 mg tablet 50 mg PO Q6H PRN Spasms 08/24/19 04/19/24 04/18/24 History pantoprazole 40 mg tablet,delayed 40 mg PO BID 6 weeks #84 tabs 01/17/24 04/19/24 04/18/24 Rx release (Protonix) insulin glargine U-300 conc 300 30 unit SUBCUT DAILY 01/19/24 04/19/24 04/18/24 History unit/mL (1.5 mL) subcutaneous pen (Toujeniffero SoloStar U-300 Insulin) insulin lispro 100 unit/mL 1 sliding scale dose SUBCUT QAM 01/19/24 04/19/24 04/18/24 History subcutaneous pen lisinopril 10 mg tablet 10 mg PO DAILY 01/19/24 04/19/24 04/19/24 History metoprolol succinate 25 mg 25 mg PO DAILY 01/19/24 04/19/24 04/18/24 History tablet,extended release 24 hr sitagliptin phosphate 100 mg 100 mg PO DAILY 01/19/24 04/19/24 04/18/24 History tablet (Januvia) tirzepatide 7.5 mg/0.5 mL 7.5 mg SUBCUT .WEEKLY 03/20/24 04/19/24 04/18/24 History subcutaneous pen injector (Mounjaro) hydrocodone 10 mg-acetaminophen 1 tab PO Q6H PRN pain from liver 04/17/24 04/19/24 04/18/24 Rx 325 mg tablet metastasis 3 weeks #90 tabs Allergies Allergy/AdvReac Type Severity Reaction Status Date / Time Penicillins Allergy Severe Unknown Verified 04/13/24 09:57 Sulfa (Sulfonamide Allergy Severe Unknown Verified 04/13/24 09:57 Antibiotics) prednisone Allergy ALGY-Redness Verified 04/13/24 09:57 of Skin Current Medications Generic Name Dose Route Start Last Admin Trade Name Freq PRN Reason Stop Dose Admin Atorvastatin Calcium 80 mg 04/20/24 09:00 04/20/24 08:40 Atorvastatin 40 Mg Tablet PO 80 mg DAILY ANITA Administration Budesonide 0.5 mg 04/19/24 20:00 04/20/24 07:40 Budesonide 0.5 Mg/2 Ml Neb INHALATION 0.5 mg BID.RESPIRATORY ANITA Administration Bupropion HCl 150 mg 04/20/24 06:00 04/20/24 05:13 Bupropion Xl (24 Hr) 150 Mg Tablet PO 150 mg QAM ANITA Administration Gabapentin 300 mg 04/20/24 09:00 04/20/24 08:41 Gabapentin 300 Mg Capsule PO 300 mg DAILY ANITA Administration Heparin Sodium (Porcine) 5,000 unit 04/19/24 17:00 04/20/24 05:13 Heparin 5,000 Unit/Ml Inj 1 Ml SUBCUT 5,000 unit Q12H ANITA Administration Amiodarone HCl/Dextrose 360 mg in 200 mls @ 0 mls/hr 04/19/24 14:00 04/20/24 10:15 Nexterone IV 0.5 mg/min .Q0M ANITA 16.67 mls/hr Administration Protocol Per Protocol Sodium Chloride 1,000 mls @ 75 mls/hr 04/19/24 16:42 04/20/24 08:42 Sodium Chloride 0.9% IV 75 mls/hr .[id number] ANITA Administration Insulin Glargine 15 unit 04/20/24 09:00 04/20/24 10:16 Insulin Glargine 100 Units/1 Ml SUBCUT 15 unit DAILY ANITA Administration Insulin Human Lispro 0 unit 04/20/24 08:45 04/20/24 10:13 Insulin Lispro 100 Unit/1 Ml SUBCUT Not Given Q6H ANITA Protocol Ipratropium [place] 0.5 mg 04/19/24 20:00 04/20/24 07:40 Ipratropium 0.5 Mg/2.5 Ml Neb INHALATION 0.5 mg Q6H.RESP ANITA Administration Levalbuterol HCl 0.63 mg 04/19/24 20:00 04/20/24 07:40 Levalbuterol 0.63 Mg/3 Ml Neb INHALATION 0.63 mg Q6H.RESP ANITA Administration Levothyroxine Sodium 25 mcg 04/20/24 09:00 04/20/24 08:41 Levothyroxine 25 Mcg Tablet PO 25 mcg DAILY ANITA Administration Meropenem 1,000 mg 04/19/24 21:30 04/20/24 05:18 Meropenem 1,000 Mg Sdv IVP 1,000 mg Q8H ANITA Administration Protocol Metoclopramide HCl 5 mg 04/19/24 16:42 04/20/24 10:12 Metoclopramide 5 Mg/Ml Sdv 2 Ml IVP Not Given Q6H ANITA Metoprolol Tartrate 25 mg 04/19/24 15:00 04/20/24 08:41 Metoprolol Tartrate 25 Mg Tablet PO 25 mg BID@0900,2100 ANITA Administration Pantoprazole Sodium 40 mg 04/19/24 17:00 04/20/24 05:19 Pantoprazole 40 Mg Sdv IVP 40 mg Q12H ANITA Administration PFSH Anesthesia Medical History (Updated 04/19/24 @ 16:52 by Deon Thurman MD) Dyslipidemia Hypertrophic cardiomyopathy Obstructive sleep apnea Lung cancer Benign neoplasm of neck COPD (chronic obstructive pulmonary disease) History of high blood pressure Type 2 diabetes mellitus Essential hypertension Surgical History History of hysterectomy with bilateral oophorectomy History of bronchoscopy (12/27/23) Bronchoscopy/EBUS History of repair of right rotator cuff History of cholecystectomy Family History Father Bleeding disorder Anesthesia complication Mother Abdominal aneurysm Brother Heart disease Sister Diabetes Other CAD (coronary artery disease) Social History Smoking and tobacco/nicotine status: current some day tobacco/nicotine user cigarettes Packs smoked per day: 0.5 [ Other cigarette details: She previously smoked up to 3 PPD; currently 1/2 PPD.] Alcohol intake: never Substance/Drug Use: never Data Anesthesia 04/20/24 03:38 04/20/24 03:38 Short CBC 04/19/24 04/20/24 Range/Units 12:27 03:38 WBC 8.10 6.37 (3.29-11.43) 10^3/uL Hgb 12.90 10.80 L (11.27-16.99) g/dL Hct 41.5 35.5 L (36-47) % MCV 85.4 87.0 (85-98) fl Plt Count 178 160 (157-399) 10^3/cmm Neut % (Auto) 71.2 72.5 % Neut # (Auto) 5.77 4.62 (1.8-7.7) 10^3/uL BMP 04/19/24 04/20/24 12:27 03:38 Sodium 132 L 135 L Potassium 4.2 3.7 Chloride 96 L 101 Carbon Dioxide 23 24 BUN 12 8 Creatinine 0.4 L 0.4 L Glucose 131 H 145 H Calcium 8.2 L 7.7 L Liver Function 04/19/24 04/20/24 Range/Units 12:27 03:38 Total Bilirubin 1.0 0.5 (0.15-1.2) mg/dL AST 52 H 35 H (0-32) U/L ALT 26 21 (0-33) U/L Alkaline Phosphatase 518 H 466 H (35-105) U/L Albumin 3.3 L 2.8 L (3.5-5.2) g/dL Urine 04/19/24 Range/Units 16:45 Urine Color Dark yellow (Yellow) Urine Appearance Cloudy A (CLEAR) Urine pH TNP Ur Specific [place] TNP Urine Protein TNP Urine Glucose (UA) TNP Urine Ketones TNP Urine Nitrate TNP Urine Bilirubin TNP Ur Leukocyte Esterase TNP Urine RBC None (0-2) /hpf Urine WBC 0-4 H (0-5) /hpf COVID Results 04/19/24 22:05 Coronavirus 229E (PCR) Not detected SARS-CoV-2 (PCR) Not detected Coags 04/19/24 15:18 PT 15.30 H INR 1.17 D-Dimer 3.45 H Microbiology 04/19/24 16:45 Bacterial Antigens - Final Urine Kidney 04/20/24 03:40 Blood Culture - Preliminary Blood SPECIMEN COLLECTED 04/20/24 03:38 Blood Culture - Preliminary Blood SPECIMEN COLLECTED Cardiac Studies: 2 Echocardiogram 02/18/24 Cardiac Event Monitor 12/28/22
--- NOTE | 2024-04-20 13:48 | P.PN_ITS ---
Subjective 2 Subjective: No acute events overnight. Patient has maintained on 0.5 of amiodarone. Today morning examination states feeling a lot better. Denies any nausea, chest pain, difficulty in breathing. Denies any headache. Saturating well on room air. Plan for go for EGD later in the day today. Vitals/I&O/Wt Last Vital Signs Temp 99.5 F 04/20/24 12:13 Pulse 89 04/20/24 12:13 Resp 18 04/20/24 12:13 BP 123/69 04/20/24 12:13 Pulse Ox 91 04/20/24 12:13 O2 Del Method Room Air 04/20/24 12:13 FiO2 21 04/20/24 07:42 04/19/24 04/20/24 04/20/24 22:59 06:59 14:59 Intake Total 297.5 / 409.334 20 / 951.634 6309 / 1200 Balance 297.5 / 409.334 20 / 568.916 5665 / 1200 Weight last 48 hrs Weight 69 kg Weight 66.4 kg Weight 66.4 kg Weight 70.76 kg Physical Exam 2 Narrative: General: No acute distress, AO x3, chronically sick appearing, frail HEENT: PERRLA, pupils bilaterally equal and reactive Chest: Bilateral bronchial breath sounds all over lung bennett with occasional rhonchi and crackles CVS: S1-S2 regular, no murmurs, no tachycardia, no gallops, no rubs Abdomen: Soft, nontender, soft organomegaly and right upper quadrant, bowel sounds present Neuro: No focal deficits, no facial deformity, AO x3, power 5/5 in all limbs Data 04/20/24 03:38 04/20/24 03:38 Micro: Microbiology 04/19/24 16:45 Bacterial Antigens - Final Urine Kidney 04/20/24 03:40 Blood Culture - Preliminary Blood SPECIMEN COLLECTED 04/20/24 03:38 Blood Culture - Preliminary Blood SPECIMEN COLLECTED A&P Assessment and plan (1) Atrial fibrillation with RVR: Chronic history. Not on anticoagulation. Back in normal sinus rhythm. Continue with amiodarone drip for now as patient is planned for EGD later in the day today. Will transition to 200 mg twice daily of amiodarone for 1 week followed by daily dose. Continue with metoprolol 25 mg twice daily. Appreciate D-dimer and TSH levels. CTA negative for pulmonary embolism. (2) Nausea and vomiting: Most likely in setting of liver mets. Cannot rule out gastroparesis in setting of chronic type 2 diabetes mellitus. Keep n.p.o. for now. Surgery consulted from the ER. Plan for endoscopy today. Continue with Reglan 5 mg Q8 hourly. Zofran as needed. Monitor QTc. Protonix twice daily (3) Essential hypertension: Blood pressure less than 140/90 mmHg. Takes metoprolol and lisinopril 10 mg oral at home. Blood pressure at goal for now. Continue metoprolol as above. Holding off on lisinopril for now. Will restart as per goal blood pressures. (4) Malignant neoplasm of upper lobe, right bronchus or lung: Post SBRT. Follows up with oncology as an outpatient. (5) Metastasis to liver: Appreciate INR. LFTs stable for now. (6) COPD (chronic obstructive pulmonary disease) with emphysema: Not in exacerbation. For now start on Pulmicort twice daily, ipratropium, Xopenex every 6 hour. Hold off on steroids for now. Oxygen supplementation keeping saturation over 90%. No pneumonia for now. Qualifiers: Emphysema type: other Qualified Code(s): J43.8 - Other emphysema (7) Type 2 diabetes mellitus: Last A1c 7.9 from 02/28. Insulin sliding scale. Continue with Lantus but will start at a half dose 15 units nightly given patient's n.p.o. status. (8) Nonischemic cardiomyopathy: Past history of nonischemic cardiomyopathy in setting of Takotsubo. Last echocardiogram from February 2024 showed an EF of 60%. Not in CHF currently. Plan Replace 1 g of IV magnesium. Replace potassium phosphate. CODE STATUS: Discussed in detail with the patient. Patient's son and spouse will be the DPOA. Full code. N.p.o. with ice and chips for now. Protonix OPD prophylaxis Heparin 5000 every 12 hourly for DVT prophylaxis Attestations 2 Medical Necessity Statement*: Requires further hospitalization for management of A-fib with RVR, currently on amiodarone drip, persistent nausea and vomiting requiring EGD Diagnoses Atrial fibrillation with RVR I48.91 Nausea and vomiting R11.2 Essential hypertension I10 Malignant neoplasm of upper lobe, right bronchus or lung C34.11 Metastasis to liver C78.7 Other emphysema J43.8 Emphysema type: other Type 2 diabetes mellitus E11.9 Nonischemic cardiomyopathy I42.8
--- NOTE | 2024-04-20 14:08 | P.CONIM_ITS ---
Providers/Reason For Consult 2 Consulting Physician/Specialty*: Dr. Dequan Payne, DO/General Surgery Reason for Consult*: Anemia Need for anticoagulation Epigastric pain Attending Physician: Deon Thurman MD Primary Care Provider: Lavern HendersonP-C History of Present Illness History of Present Illness Jael Adame is a 64 year old female who was going to get an EGD and colonoscopy as an outpatient but was found to be in A-fib with RVR. They could not get her rate controlled in the ER and therefore she is mated to the ICU. She reports that she has const epigastric abdominal pain that does not radiate. She also reports nausea and vomiting. Nothing seems to make the pain better or worse. Her hemoglobin has dropped 4 points since coming in the hospital. She likely requires anticoagulation for her A-fib and we want to rule out any cause of her blood loss. Review of Systems 2 General: Reports: 10 or more systems reviewed and unremarkable except in HPI and below Medications/Allergies Home Medications Medication Instructions Recorded Confirmed Last Taken Type aspirin 81 mg chewable tablet 81 mg PO DAILY 08/24/19 04/19/24 04/18/24 History (Aspirin Childrens) bupropion HCl 150 mg 24 hr tablet, 150 mg PO QAM 08/24/19 04/19/24 04/18/24 History extended release cyclobenzaprine 10 mg tablet 10 mg PO TID PRN Spasms 08/24/19 04/19/24 04/18/24 History famotidine 40 mg tablet 40 mg PO DAILY 08/24/19 04/19/24 04/18/24 History fluticasone fur. 100 mcg-umeclid 1 inh inhalation DAILY 08/24/19 04/19/24 04/18/24 History 62.5 mcg-vilant 25 mcg inhalat.powder (Trelegy Ellipta) gabapentin 300 mg capsule 300 mg PO DAILY 08/24/19 04/19/24 04/18/24 History levothyroxine 25 mcg tablet 25 mcg PO DAILY 08/24/19 04/19/24 04/18/24 History montelukast 10 mg tablet 10 mg PO DAILY 08/24/19 04/19/24 04/18/24 History (Singulair) rosuvastatin 20 mg tablet (Crestor) 20 mg PO DAILY 08/24/19 04/19/2404/18/24 History tramadol 50 mg tablet 50 mg PO Q6H PRN Spasms 08/24/19 04/19/24 04/18/24 History pantoprazole 40 mg tablet,delayed 40 mg PO BID 6 weeks #84 tabs 01/17/24 04/19/24 04/18/24 Rx release (Protonix) insulin glargine U-300 conc 300 30 unit SUBCUT DAILY 01/19/24 04/19/24 04/18/24 History unit/mL (1.5 mL) subcutaneous pen (Toujeo SoloStar U-300 Insulin) insulin lispro 100 unit/mL 1 sliding scale dose SUBCUT QAM 01/19/24 04/19/24 04/18/24 History subcutaneous pen lisinopril 10 mg tablet 10 mg PO DAILY 01/19/24 04/19/24 04/19/24 History metoprolol succinate 25 mg 25 mg PO DAILY 01/19/24 04/19/24 04/18/24 History tablet,extended release 24 hr sitagliptin phosphate 100 mg 100 mg PO DAILY 01/19/24 04/19/24 04/18/24 History tablet (Januvia) tirzepatide 7.5 mg/0.5 mL 7.5 mg SUBCUT .WEEKLY 03/20/24 04/19/24 04/18/24 History subcutaneous pen injector (Lei) hydrocodone 10 mg-acetaminophen 1 tab PO Q6H PRN pain from liver 04/17/24 04/19/24 04/18/24 Rx 325 mg tablet metastasis 3 weeks #90 tabs Allergies Allergy/AdvReac Type Severity Reaction Status Date / Time Penicillins Allergy Severe Unknown Verified 04/13/24 09:57 Sulfa (Sulfonamide Allergy Severe Unknown Verified 04/13/24 09:57 Antibiotics) prednisone Allergy ALGY-Redness Verified 04/13/24 09:57 of Skin Current Medications Generic Name Dose Route Start Last Admin Trade Name Freq PRN Reason Stop Dose Admin Atorvastatin Calcium 80 mg 04/20/24 09:00 04/20/24 08:40 Atorvastatin 40 Mg Tablet PO 80 mg DAILY ANITA Administration Budesonide 0.5 mg 04/19/24 20:00 04/20/24 07:40 Budesonide 0.5 Mg/2 Ml Neb INHALATION 0.5 mg BID.RESPIRATORY ANITA Administration Bupropion HCl 150 mg 04/20/24 06:00 04/20/24 05:13 Bupropion Xl (24 Hr) 150 Mg Tablet PO 150 mg QAM ANITA Administration Gabapentin 300 mg 04/20/24 09:00 04/20/24 08:41 Gabapentin 300 Mg Capsule PO 300 mg DAILY ANITA Administration Heparin Sodium (Porcine) 5,000 unit 04/19/24 17:00 04/20/24 05:13 Heparin 5,000 Unit/Ml Inj 1 Ml SUBCUT 5,000 unit Q12H ANITA Administration Amiodarone HCl/Dextrose 360 mg in 200 mls @ 0 mls/hr 04/19/24 14:00 04/20/24 10:15 Nexterone IV 0.5 mg/min .Q0M ANITA 16.67 mls/hr Administration Protocol Per Protocol Sodium Chloride 1,000 mls @ 75 mls/hr 04/19/24 16:42 04/20/24 08:42 Sodium Chloride 0.9% IV 75 mls/hr .[id number] ANITA Administration Insulin Glargine 15 unit 04/20/24 09:00 04/20/24 10:16 Insulin Glargine 100 Units/1 Ml SUBCUT 15 unit DAILY ANITA Administration Insulin Human Lispro 0 unit 04/20/24 08:45 04/20/24 10:13 Insulin Lispro 100 Unit/1 Ml SUBCUT Not Given Q6H [facility] Protocol Ipratropium [place] 0.5 mg 04/19/24 20:00 04/20/24 07:40 Ipratropium 0.5 Mg/2.5 Ml Neb INHALATION 0.5 mg Q6H.RESP ANITA Administration Levalbuterol HCl 0.63 mg 04/19/24 20:00 04/20/24 07:40 Levalbuterol 0.63 Mg/3 Ml Neb INHALATION 0.63 mg Q6H.RESP ANITA Administration Levothyroxine Sodium 25 mcg 04/20/24 09:00 04/20/24 08:41 Levothyroxine 25 Mcg Tablet PO 25 mcg DAILY ANITA Administration Meropenem 1,000 mg 04/19/24 21:30 04/20/24 05:18 Meropenem 1,000 Mg Sdv IVP 1,000 mg Q8H AINTA Administration Protocol Metoclopramide HCl 5 mg 04/19/24 16:42 04/20/24 10:12 Metoclopramide 5 Mg/Ml Sdv 2 Ml IVP Not Given Q6H ANITA Metoprolol Tartrate 25 mg 04/19/24 15:00 04/20/24 08:41 Metoprolol Tartrate 25 Mg Tablet PO 25 mg BID@0900,2100 ANITA Administration Pantoprazole Sodium 40 mg 04/19/24 17:00 04/20/24 05:19 Pantoprazole 40 Mg Sdv IVP 40 mg Q12H ANITA Administration PFSH Acute 2 PFSH: Medical History Dyslipidemia Hypertrophic cardiomyopathy Obstructive sleep apnea Lung cancer Benign neoplasm of neck COPD (chronic obstructive pulmonary disease) History of high blood pressure Type 2 diabetes mellitus Essential hypertension Surgical History History of hysterectomy with bilateral oophorectomy History of bronchoscopy (12/27/23) Bronchoscopy/EBUS History of repair of right rotator cuff History of cholecystectomy Family History Father Bleeding disorder Anesthesia complication Mother Abdominal aneurysm Brother Heart disease Sister Diabetes Other CAD (coronary artery disease) Social History Smoking and tobacco/nicotine status: current some day tobacco/nicotine user cigarettes Packs smoked per day: 0.5 [ Other cigarette details: She previously smoked up to 3 PPD; currently 1/2 PPD.] Alcohol intake: never Substance/Drug Use: never Vitals/I&O/Wt Last Vital Signs Temp 99.5 F 04/20/24 12:13 Pulse 89 04/20/24 12:13 Resp 18 04/20/24 12:13 BP 123/69 04/20/24 12:13 Pulse Ox 91 04/20/24 12:13 O2 Del Method Room Air 04/20/24 12:13 FiO2 21 04/20/24 07:42 04/19/24 04/20/24 04/20/24 22:59 06:59 14:59 Intake Total 297.5 / 409.334 20 / 435.508 9936 / 1200 Balance 297.5 / 409.334 20 / 094.778 1520 / 1200 Weight last 48 hrs Weight 152 lb 1.903 oz Weight 146 lb 6.191 oz Weight 146 lb 6.191 oz Weight 156 lb Physical Exam 2 Narrative: General : Patient is well developed , no acute distress, oriented x3 Head : Normal cephalic, a-traumatic. Ears : Pinnae and external canal are normal. Hearing is normal. Eyes : PERRLA, Sclera and injection are normal. No conjunctival discharge. Nose : Mucous membranes are without erythema. Throat : buccal mucosa is normal, gums are without significant recession or hypertrophy. Lungs : Equal chest rise bilaterally, no use of accessory muscles, trachea is midline. Cor : Rate and rhythm are normal. Abdomen : Soft, ND, NT, no g/r/m Extremities : No edema, no cyanosis or clubbing, dorsalis pedis pulses are present bilaterally, non-tender to palpation of calves. Upper extremities are normal bilaterally. Back : non-tender to palpation, no CVA tenderness. Neuro : CN II - XII intact, Upper and lower extremities have equal and full strength Data 04/20/24 03:38 04/20/24 03:38 Micro: Microbiology 04/19/24 16:45 Bacterial Antigens - Final Urine Kidney 04/20/24 03:40 Blood Culture - Preliminary Blood SPECIMEN COLLECTED 04/20/24 03:38 Blood Culture - Preliminary Blood SPECIMEN COLLECTED A&P Assessment and plan (1) Anemia: (2) Epigastric pain: (3) GERD (gastroesophageal reflux disease): (4) Nausea and vomiting: (5) Barretts esophagus: (6) History of colon polyps: Plan EGD and colonoscopy The risks and benefits of the procedure, including bleeding, infection, intestinal perforation requiring surgery, missed lesion were explained to the patient. The patient is understanding of the risks and wishes to proceed. Coding Level of Care Code 83220 Diagnoses Anemia D64.9 Epigastric pain R10.13 GERD (gastroesophageal reflux disease) K21.9 Nausea and vomiting R11.2 Barretts esophagus K22.70 History of colon polyps Z86.010
--- NOTE | 2024-04-20 15:07 | ANE.PACU2 ---
Inpatient post-anesthesia follow up: Airway intact: Yes Vital signs: Temperature 97.6 F Pulse Rate 82 Respiratory Rate 21 Blood Pressure 129/72 Pulse Oximetry 95 Oxygen Delivery Me thod Room Air Oxygen Flow Rate 6 Fraction of Inspir ed Oxygen 21 Hydration adequate: Yes Nausea and vomiting: No Pain level: 1 Mental status: Baseline
--- NOTE | 2024-04-20 15:20 | PC.NURSE ---
Patient returned to [facility] from GI lab at 1515.
[2024-04-20] MEDS: potassium phosphate (mMol PO4) 15 MMOL in sodium chloride 0.9% (100 ml) 100 ML 47 MMOL IV (15:23)
[2024-04-20 16:06] LABS: Glucose Point of Care 207 mg/dL (70-110)
--- NOTE | 2024-04-20 17:18 | P.DS_ITS ---
Discharge Providers Date of Admission: 04/19/24 15:46 Date of Discharge: April 20, 2024 Attending Provider at Admission: Deon Thurman MD Attending Provider at Discharge: Deon Thurman MD Consults: Surgery: Dr. Maurer Primary Care Provider: Lavern Henderson-Ricardo Diagnoses at Discharge Discharge Diagnosis (1) Anemia: Status: Acute (2) Epigastric pain: Status: Acute (3) GERD (gastroesophageal reflux disease): Status: Acute (4) Nausea and vomiting: Status: Acute (5) Barretts esophagus: Status: Acute (6) History of colon polyps: Status: Acute Reason for Visit Reason for Visit: Afib with RVR Hospital Course Hospital Course Jael Adame is a 64 year old female with past medical history of lung cancer post SBRT with significant liver mets., Diabetes mellitus, hypothyroidism, A- fib on metoprolol not on anticoagulation presented to the GI lab for endoscopy today and was found to have A-fib with RVR hence was sent to the ER. As per the patient she has been having significant nausea and vomiting for the last 4 months with not able to keep even liquids down. She has been able to keep her medications down except today which she had prescription for planned endoscopy. She denies previous admission to the hospital for A-fib. Has never been on anticoagulation except baby aspirin. Currently complains of mild palpitations but denies of any chest pain. States shortness of breath is not worse than her baseline. Denies abdominal pain or headache or dizziness. Patient was warm to the hospital for management of A-fib with RVR. She failed treatment with Cardizem drip and was transition over to amiodarone drip and her home dose of metoprolol was continued. While being on amiodarone drip patient converted back into normal sinus rhythm. She underwent EGD and colonoscopy with surgical team which was unremarkable. She has been discharged in hemodynamically stable condition with oral amiodarone 200 mg twice daily for next 1 week followed by 200 mg daily. Physical Exam Narrative: General: No acute distress, AO x3, chronically sick appearing, frail HEENT: PERRLA, pupils bilaterally equal and reactive Chest: Bilateral bronchial breath sounds all over lung bennett with occasional rhonchi and crackles CVS: S1-S2 regular, no murmurs, no tachycardia, no gallops, no rubs Abdomen: Soft, nontender, soft organomegaly and right upper quadrant, bowel sounds present Neuro: No focal deficits, no facial deformity, AO x3, power 5/5 in all limbs Discharge Data Studies Completed and Pending Completed Studies During Hospitalization Category Date Time Status CTA chest [CT angio chest PE protcl [id number]] Routine Cat Scan 04/19/24 16:42 Completed XR chest 1V portable [id number] Stat Exams 04/19/24 12:46 Completed Pending at discharge Category Date Time Status Blood Culture AM LABS Lab 04/20/24 03:40 Results Complete Blood Count w/Auto AM LABS Lab 04/21/24 04:00 Ordered Comprehensive Metabolic Panel AM LABS Lab 04/21/24 04:00 Ordered Magnesium AM LABS Lab 04/21/24 04:00 Ordered Phosphorus AM LABS Lab 04/21/24 04:00 Ordered Yjfofvzzaqn-CE-Ulek Plus Routine Lab 04/19/24 21:15 Received Sputum Culture and Gram Stain Stat Lab 04/19/24 21:15 Uncollected Urinalysis Routine Lab 04/20/24 08:42 Ordered Pathology: Surgical [PTH] Routine Pth 04/20/24 14:46 Received Radiology Impressions Chest X-Ray 04/19/24 12:46 Impression: Minimal peripheral patchy opacity in right upper lobe which could represent pneumonia and/or atelectasis. Chest CTA 04/19/24 16:42 IMPRESSION: Possible slight increased cavitation in 2 cm right upper lobe pulmonary nodule. ADDENDUM: 04/19/241953 ADDENDUM: No evidence of pulmonary embolism. Laboratory Results WBC 6.37 10^3/uL (3.29-11.43) 04/20/24 03:38 RBC 4.08 10^6/uL (3.85-5.65) 04/20/24 03:38 Hgb 10.80 g/dL (11.27-16.99) L 04/20/24 03:38 Hct 35.5 % (36-47) L 04/20/24 03:38 MCV 87.0 fl (85-98) 04/20/24 03:38 MCH 26.5 pg (27-33) L 04/20/24 03:38 MCHC 30.4 g/dL (30-55) 04/20/24 03:38 RDW 17.4 % (12.1-15.1) H 04/20/24 03:38 Plt Count 160 10^3/cmm (157-399) 04/20/24 03:38 MPV 12.9 fL (7.4-10.4) H 04/20/24 03:38 Neut % (Auto) 72.5 % 04/20/24 03:38 Lymph % (Auto) 14.3 % 04/20/24 03:38 [place] % (Auto) 12.4 % 04/20/24 03:38 Eos % (Auto) 0.0 % 04/20/24 03:38 Baso % (Auto) 0.2 % 04/20/24 03:38 Neut # (Auto) 4.62 10^3/uL (1.8-7.7) 04/20/24 03:38 Lymph # (Auto) 0.9 10^3/uL (0.8-4.8) 04/20/24 03:38 [place] # (Auto) 0.8 10^3/uL (0.2-0.9) 04/20/24 03:38 Eos # (Auto) 0.0 10^3/uL (0.0-0.8) 04/20/24 03:38 Baso # (Auto) 0.0 10^3/uL (0.0-0.1) 04/20/24 03:38 Nucleated RBC % (auto) 0 % 04/20/24 03:38 Nucleated RBCs # 0.0 /100WBC 04/20/24 03:38 PT 15.30 SECONDS (12.1-14.9) H 04/19/24 15:18 INR 1.17 (0.8-1.2) 04/19/24 15:18 D-Dimer 3.45 ug/mLFEU (0-0.59) H 04/19/24 15:18 Sodium 135 mmol/L (136-145) L 04/20/24 03:38 Potassium 3.7 mmol/L (3.5-5.1) 04/20/24 03:38 Chloride 101 mmol/L (98-107) 04/20/24 03:38 Carbon Dioxide 24 mmol/L (22-29) 04/20/24 03:38 Anion Gap 13.7 (5-19) 04/20/24 03:38 BUN 8 mg/dL (8-23) 04/20/24 03:38 Creatinine 0.4 mg/dL (0.5-0.9) L 04/20/24 03:38 GFR Calculation 159.7 mL/min (90-130) H 04/20/24 03:38 Glucose 145 mg/dL (65-115) H 04/20/24 03:38 POC Glucose 207 mg/dL (70-110) H 04/20/24 15:39 Calculated Osmolality 281 mOsm/kg (285-295) L 04/20/24 03:38 Calcium 7.7 mg/dL (8.5-10.5) L 04/20/24 03:38 Phosphorus 1.5 mg/dL (2.5-4.5) L 04/20/24 03:38 Magnesium 1.6 mg/dL (1.7-2.3) L 04/20/24 03:38 Iron 18 ug/dL (37-145) L 04/19/24 15:18 TIBC 276 mcg/dl 04/19/24 15:18 % Saturation 6.5 % (20-50) L 04/19/24 15:18 Unsat Iron Binding 258 ug/dL (112-347) 04/19/24 15:18 Total Bilirubin 0.5 mg/dL (0.15-1.2) 04/20/24 03:38 AST 35 U/L (0-32) H 04/20/24 03:38 ALT 21 U/L (0-33) 04/20/24 03:38 Alkaline Phosphatase 466 U/L (35-105) H 04/20/24 03:38 Total Protein 5.4 g/dL (6.6-8.7) L 04/20/24 03:38 Albumin 2.8 g/dL (3.5-5.2) L 04/20/24 03:38 Globulin 2.6 g/dL (1.3-4.6) 04/20/24 03:38 Triglycerides 110 mg/dL (0-150) 04/20/24 03:38 Cholesterol 69 mg/dL (0-200) 04/20/24 03:38 LDL Cholesterol, Calc 31 mg/dL (50-129) L 04/20/24 03:38 HDL Cholesterol 16 mg/dL (60-100) L 04/20/24 03:38 LDL/HDL Ratio 1.94 RATIO (0.00-3.22) 04/20/24 03:38 Cholesterol/HDL Ratio 4.31 mg/dL (0.0-4.40) 04/20/24 03:38 Vitamin B12 1382 pg/mL (232-1245) H 04/19/24 12:27 Folate 9.8 ng/mL (4.8-37.3) 04/20/24 03:38 Procalcitonin 51.52 ng/mL (0-0.5) H 04/20/24 03:38 Urine Color Dark yellow (Yellow) 04/19/24 16:45 Urine Appearance Cloudy (CLEAR) A 04/19/24 16:45 Urine pH TNP 04/19/24 16:45 Ur Specific [place] TNP 04/19/24 16:45 Urine Protein TNP 04/19/24 16:45 Urine Glucose (UA) TNP 04/19/24 16:45 Urine Ketones TNP 04/19/24 16:45 Urine Blood TNP 04/19/24 16:45 Urine Nitrate TNP 04/19/24 16:45 Urine Bilirubin TNP 04/19/24 16:45 Urine Urobilinogen TNP 04/19/24 16:45 Ur Leukocyte Esterase TNP 04/19/24 16:45 Urine RBC None /hpf (0-2) 04/19/24 16:45 Urine WBC 0-4 /hpf (0-5) H 04/19/24 16:45 Ur Squamous Epith Cells None /hpf (0-5) 04/19/24 16:45 Amorphous Sediment Not Reportable 04/19/24 16:45 Urine Bacteria 4+ /hpf (NONE) H 04/19/24 16:45 Urine Opiates Screen Positive ng/mL (Negative) H 04/19/24 16:45 Ur Barbiturates Screen Negative ng/mL (Negative) 04/19/24 16:45 Ur Phencyclidine Scrn Negative ng/mL (Negative) 04/19/24 16:45 Ur Amphetamines Screen Negative ng/mL (Negative) 04/19/24 16:45 U Benzodiazepines Scrn Negative ng/mL (Negative) 04/19/24 16:45 Urine Cocaine Screen Negative ng/mL (Negative) 04/19/24 16:45 U Marijuana (THC) Screen Negative ng/mL (Negative) 04/19/24 16:45 Adenovirus (PCR) Not detected (NOT DETECT) 04/19/24 22:05 C. pneumoniae DNA (PCR) Not detected (NOT DETECT) 04/19/24 22:05 Coronavirus 229E (PCR) Not detected (NOT DETECT) 04/19/24 22:05 Human Metapneumovir PCR Not detected (NOT DETECT) 04/19/24 22:05 Influenza A (H1) PCR Not detected (NOT DETECT) 04/19/24 22:05 Influ A (H1/09) PCR Not detected (NOT DETECT) 04/19/24 22:05 Influenza A (H3) PCR Not detected (NOT DETECT) 04/19/24 22:05 Influenza Type A (PCR) Not detected (NOT DETECT) 04/19/24 22:05 Influenza Type B (PCR) Not detected (NOT DETECT) 04/19/24 22:05 M. pneumoniae (PCR) Not detected (NOT DETECT) 04/19/24 22:05 Parainfluenza 1 (PCR) Not detected (NOT DETECT) 04/19/24 22:05 Parainfluenza 2 (PCR) Not detected (NOT DETECT) 04/19/24 22:05 Parainfluenza 3 (PCR) Not detected (NOT DETECT) 04/19/24 22:05 Parainfluenza 4 (PCR) Not detected (NOT DETECT) 04/19/24 22:05 RSV Type A (PCR) Not detected (NOT DETECT) 04/19/24 22:05 RSV Type B (PCR) Not detected (NOT DETECT) 04/19/24 22:05 Entero/Rhino (PCR) Not detected (NOT DETECT) 04/19/24 22:05 SARS-CoV-2 (PCR) Not detected (NOT DETECT) 04/19/24 22:05 Vitals Last Vital Signs Temp 97.6 F 04/20/24 16:00 Pulse 78 04/20/24 16:00 Resp 21 H 04/20/24 16:00 BP 129/79 04/20/24 16:00 Pulse Ox 90 04/20/24 16:00 O2 Del Method Room Air 04/20/24 16:00 O2 Flow Rate 6 04/20/24 14:47 FiO2 21 04/20/24 07:42 Discharge Plan Discharge Patient Disposition: Home Condition: Stable Prescriptions: New amiodarone [Pacerone] 200 mg Tablet 200 mg PO DAILY Qty: 60 0RF Rx Instructions: Take 200 mg twice daily for next 1 week followed by 200 mg daily Continued lisinopril 10 mg tablet 10 mg PO DAILY metoprolol succinate 25 mg tablet extended release 24 hr 25 mg PO DAILY insulin lispro 100 unit/mL insulin pen 1 sliding scale dose SUBCUT QAM insulin glargine U-300 conc [Toujeo SoloStar U-300 Insulin] 300 unit/mL (1.5 mL) insulin pen 30 unit SUBCUT DAILY Januvia 100 mg tablet 100 mg PO DAILY pantoprazole [Protonix] 40 mg tablet,delayed release (DR/EC) 40 mg PO BID 42 Days Qty: 84 1RF hydrocodone-acetaminophen 10-325 mg tablet 1 tab PO Q6H PRN (Reason: pain from liver metastasis) 21 Days Qty: 90 0RF cyclobenzaprine 10 mg Tablet 10 mg PO TID PRN (Reason: Spasms) famotidine 40 mg Tablet 40 mg PO DAILY gabapentin 300 mg Capsule 300 mg PO DAILY aspirin [Aspirin Childrens] 81 mg Tablet,Chewable 81 mg PO DAILY rosuvastatin [Crestor] 20 mg Tablet 20 mg PO DAILY bupropion HCl 150 mg Tablet Extended Release 24 Hr 150 mg PO QAM tramadol 50 mg Tablet 50 mg PO Q6H PRN (Reason: Spasms) levothyroxine 25 mcg Tablet 25 mcg PO DAILY montelukast [Singulair] 10 mg Tablet 10 mg PO DAILY Trelegy Ellipta 100-62.5-25 mcg Blister With Device 1 inh INHALATION DAILY Mounjaro 7.5 mg/0.5 mL pen injector 7.5 mg SUBCUT .WEEKLY Discharge Orders: Discharge Order (Routine); Ordered 04/20/24 Ordered By: Deon Thurman Referrals: Lavern Henderson FNP-C [Primary Care Provider] - 04/26/24 1:00 pm Dequan Payne DO [Physician] - 2 weeks Discharge Diet: Advance as tolerated and Full LIquid Discharge Activity: Resume usual activity and Increase activity as tolerated Patient Instructions: COPD, A-fib (Atrial Fibrillation) (DC), Acute Nausea and Vomiting (DC), GI Post Discharge Instructions w/ Anesthesia, Opioid Safety Activity Restrictions/Additional Instructions: Take amiodarone 200 mg twice daily for next 1 week followed by 200 mg daily. Follow-up with a primary care provider within next 1 week. Follow-up with surgical team in 2 weeks. Discharge Attestations Time Spent in Discharge Care*: greater than 30 min Specific Discharge Activities: educating patient, discussing with pcp/other providers, discussing with correctional case records supervisor/social workers/dc planners, doc umenting/other paperwork and evaluating patient/reviewing data Status at Discharge: Cognitive status at discharge: cognitively intact , Behavioral status at discharge: cooperative , Functional status at discharge: uses cane/walker , Overall status at discharge: patient is back to baseline Quality Metrics Clinical Quality Measures [ No reported AMI, CVA or VTE this stay] Coding Level of Care Code 85226 Total time (in minutes) for Discharge: 60 Diagnoses Anemia D64.9 Epigastric pain R10.13 GERD (gastroesophageal reflux disease) K21.9 Nausea and vomiting R11.2 Barretts esophagus K22.70 History of colon polyps Z86.010
[2024-04-20] MEDS: amiodarone 200 mg Tablet PO (17:32)
[2024-04-21 09:20] LABS: Carcinoembryonic Antigen 123.4 ng/mL (0.0-4.7)
[2024-04-21 09:30] LABS: Lactate Dehydrogenase 600 U/L (135-214)
== END 2024-04-20 18:34 | disposition home or self-care (01) | DRG 309 ==
LOC: ER 15:30 → CSU 15:46
PROVIDERS: Internal Medicine Hematology & Oncology; Surgery; Admitting Provider Student in an Organized Health Care Education/Training Program; Emergency Provider Family Medicine; PCP Nurse Practitioner Family; Visit Provider Student in an Organized Health Care Education/Training Program
PROC: 0DJ08ZZ Inspection of Upper Intestinal Tract, Via Natural or Artificial Opening Endoscopic (ICD-10-PCS; CPT 43235; principal; 2024-04-20 13:05)
PROC: 0DJD8ZZ Inspection of Lower Intestinal Tract, Via Natural or Artificial Opening Endoscopic (ICD-10-PCS; CPT 45378; 2024-04-20 13:05)
DX: I48.91 Unspecified atrial fibrillation (principal); C34.11 Malignant neoplasm of upper lobe, right bronchus or lung; C78.7 Secondary malignant neoplasm of liver and intrahepatic bile duct; I51.81 Takotsubo syndrome; E11.43 Type 2 diabetes mellitus with diabetic autonomic (poly)neuropathy; K31.84 Gastroparesis; E03.9 Hypothyroidism, unspecified; E78.5 Hyperlipidemia, unspecified; I42.2 Other hypertrophic cardiomyopathy; G47.33 Obstructive sleep apnea (adult) (pediatric); K21.00 Gastro-esophageal reflux disease with esophagitis, without bleeding; J43.9 Emphysema, unspecified; F17.210 Nicotine dependence, cigarettes, uncomplicated; D64.9 Anemia, unspecified; K22.70 Barrett's esophagus without dysplasia; D12.2 Benign neoplasm of ascending colon; Z79.84 Long term (current) use of oral hypoglycemic drugs; Z79.85 Long-term (current) use of injectable non-insulin antidiabetic drugs; Z79.82 Long term (current) use of aspirin; Z79.4 Long term (current) use of insulin; Z79.891 Long term (current) use of opiate analgesic; Z92.3 Personal history of irradiation; Z88.0 Allergy status to penicillin; Z88.2 Allergy status to sulfonamides; Z90.710 Acquired absence of both cervix and uterus; Z90.722 Acquired absence of ovaries, bilateral; Z90.49 Acquired absence of other specified parts of digestive tract; Z86.018 Personal history of other benign neoplasm
CPT/HCPCS: 36415; 36416; 71045; 71275; 80053; 80061; 80306; 81001; 82378; 82607; 82746; 82962; 83540; 83550; 83615; 83735; 84100; 84145; 85025; 85378; 85610; 86403; 86480; 87040; 87486; 87581; 87633; 88305; 93005; 94640; 94664; 96365; 96366; 96367; 96372; 96375; 96376; 99285; A4222; A9270; J0283; J1644; J1815; J2185; J2470; J2765; J3475; J3490; J7030; J7614; J7626; J7644

== ENCOUNTER 2024-04-27 08:52 | Oncology outpatient (recurring) (ONCR) | payer MEDICARE, MEDICAID, SELFPAY ==
--- NOTE | 2024-04-17 10:35 | ONCRAD EPV_ITS ---
Radiation Oncology Established Patient Visit Patient: Jael Adame [id number] : 1960 Age: 64 Sex: Female Dictated by: Dr. Екатерина Hayward Date of Service: 04/17/2024 Referring Physician(s) : Clinton Ibarra M.D. Diagnosis: C34.11 - Malignant neoplasm of upper lobe, right bronchus or lung, Diagnosed 02/24/2024 (Active) Patient returns today for a 1 month checkup after having completed SBRT on March 16, 2024. The CT of the chest abdomen and pelvis ordered by Dr. Hinkle showed the mass in the lung had decreased substantially from 4.2 down to 2.0 cm in size. Unfortunately the area in the liver that was initially felt to be nonmalignant has declared itself malignant. It now measures 9.4 x 8.5 x 8.1 cm in size and she has numerous scattered hepatic metastasis in addition to the large lesion. She did not yet have an appointment until May to go back and see Dr. Connor for these results. We have ask medical oncology to move her appointment up to this week so that she can begin her chemotherapy as soon as possible. I reviewed the results with her. We talked about her current symptoms which she is having increasing abdominal pain and says she can actually feel the mass in the liver. At this point I will send a prescription to the pharmacy here for hydrocodone 03/09/2025 so that her prescription can be adjusted down the line when she starts her chemotherapy. Radiotherapy to Date: Course: RUL [id number] SBRT, Treatment Site: [facility] SBRT 5FX, Ref. ID: [id number], Energy: 6X, Dose/Fx (cGy): 1,000, #Fx: 5 / 5, Dose Correction (cGy): 0, Total Dose Delivered (cGy): 5,000, Start Date: 03/06/2024, End Date: 03/16/2024, Elapsed Days: 10 Current History: Current Medications: Allergies: Current Complaints / Review of Systems: . Vital Signs: Performed on 04/17/2024 9:52 AM BMI - 27.928 kg/m2 (high), Height - 60 in, Weight - 143 lbs, Temperature - 97.6 f, Pulse - 81 /min, Respiration - 16 /min, O2 Sat - 96 %, Pain - 10, Fatigue - 0 and BP - 122/ 72 mm(hg). Physical Exam: General: Alert and oriented x 3. No acute distress. HEENT: Normocephalic, atraumatic. Extraocular Movements Intact: Pupils Equal, Round, Reactive to Light Performance Status: 80 Lab: None pending. Pathology: Primary, c34.11 - malignant neoplasm of upper lobe, right bronchus or lung, Diagnosed 02/24/2024 (active) . Imaging: See HPI Impression: Small cell carcinoma of the lung now with progressive disease in the liver Plan: Patient will follow-up with medical oncology this week to begin her chemotherapy. Signed by: 04/17/2024 10:33:02 AM <<Signature on File>> Time spent with patient:20 CPT Code: CPT Code:
== END 2024-05-06 23:59 | disposition home or self-care (01) ==
PROVIDERS: PCP Nurse Practitioner Family; Visit Provider Radiology Radiation Oncology
DX: Z51.0 Encounter for antineoplastic radiation therapy (principal); C34.11 Malignant neoplasm of upper lobe, right bronchus or lung
CPT/HCPCS: 99024; 99214

== ENCOUNTER 2024-05-11 10:44 | Day surgery (SDC) | payer MEDICARE, MEDICAID, SELFPAY ==
[2024-05-11] VITALS (9 sets, daily range): BP systolic 97–122; BP diastolic 63–74; PULSE 73–79; RESP 16–18; TEMP 36.1–36.6; O2SAT 94–97; BMI 26.9
--- NOTE | 2024-05-11 10:58 | SC_ITS ---
WS: [id number] C-arm [place] for CVA [id number] REASON FOR EXAM: Mediport placement FINDINGS: Infusion port overlying the left chest with trans left subclavian vein catheter with the tip turning down from the innominate vein into the mid to lower SVC. SC/C-arm [place] for CVA [id number] IMPRESSION: Chemotherapy port and catheter as above.
--- NOTE | 2024-05-11 10:58 | XRR_ITS ---
PROCEDURE INFORMATION: Exam: XR Chest Exam date and time: 05/11/2024 3:28 PM Age: 64 years old Clinical indication: Device placement; Other: Mediport placement; Prior surgery; Surgery date: Post-operative (0-2 days); Additional info: Status post mediport placement TECHNIQUE: Imaging protocol: Radiologic exam of the chest. Views: 1 view. COMPARISON: CT angio chest PE protcl [id number] 04/19/2024 6:11 PM FINDINGS: Tubes, catheters and devices: Left subclavian port tip is in the region of the mid SVC. Lungs: Patchy opacities along the periphery of the right mid lung corresponding to a previously seen cavitary right upper lobe pulmonary nodule. Pleural spaces: Unremarkable. No pleural effusion. No pneumothorax. Heart/Mediastinum: Unremarkable. No cardiomegaly. Diaphragm: Mild asymmetric elevation of the right hemidiaphragm. Bones/joints: Unremarkable. XR/XR chest 1V portable [id number] IMPRESSION: Left subclavian port tip is in the region of the mid SVC.
[2024-05-11] MEDS: sodium chloride 0.9% 1,000 ML 30 ML IV (11:37)
[2024-05-11 11:38] LABS: Glucose Point of Care 339 mg/dL (70-110)
[2024-05-11] MEDS: vancomycin 1,500 MG/300 ML PIGGYBACK 200 MG IV (11:39)
[2024-05-11] MEDS: fentaNYL 50 mcg/mL INJ 2mL IVP ×2 (12:51→14:18)
--- NOTE | 2024-05-11 12:55 | P.ANESASSM_ITS ---
Pre-Anesthetic Assessment Height/Weight: Height 5 ft Weight 138 lb Temp Pulse Resp BP Pulse Ox O2 Del Method 97.9 F 73 16 97/65 96 Room Air 05/11/24 11:16 05/11/24 11:16 05/11/24 12:51 05/11/24 11:16 05/11/24 12:51 05/11/24 11:18 Preop Diagnosis: Small cell lung cancer with mets to the liver Operation Date: 05/11/24 12:40 Proposed Procedures p Portacath Placement(Not Applicable) - Dequan Payne, DO Was Beta Roxi taken within 24 hours: N/A Was Clonidine taken within 24 hours: N/A Last intake: Intake Last Liquid Date 05/10/24 Last Liquid Time 22:00 Last Solid Date 05/10/24 Last Solid Time 12:00 Social No alcohol and No tobacco Exam alert, oriented x 3 and regular rate & rhythm Decreased breath sounds bilaterally Airway Submandibular: within normal limits Cervical ROM: within normal limits Mallampati: Class II Dentition: other Comments: Comments: Poor dentition, multiple missing teeth denies any loose Anesthetic Plan ASA status: 3 Anesthesia: MAC Other: Patient with small cell lung cancer with mets to the liver here for port placement No prior issues with anesthesia NPO since yesterday History of GERD, on Protonix Type 2 diabetes on insulin and Mounjaro. Mounjaro last taken 04/25/2024. Preop BS 339. 10 units insulin given COPD, controlled with inhalers Labs reviewed and acceptable for procedure today. Chronic hyponatremia noted. NA 129 EKG 04/19/2024 showing A-fib with RVR Plan for MAC anesthetic Medications/Allergies Home Medications Medication Instructions Recorded Confirmed Last Taken Type aspirin 81 mg chewable tablet 81 mg PO DAILY 08/24/19 05/11/24 05/11/24 08:00 History (Aspirin Childrens) bupropion HCl 150 mg 24 hr tablet, 150 mg PO QAM 08/24/19 05/10/24 05/10/24 History extended release cyclobenzaprine 10 mg tablet 10 mg PO TID PRN Spasms 08/24/19 05/10/24 04/18/24 History famotidine 40 mg tablet 40 mg PO DAILY 08/24/19 05/10/24 05/10/24 History fluticasone fur. 100 mcg-umeclid 1 inh inhalation DAILY 08/24/19 05/10/24 05/10/24 History 62.5 mcg-vilant 25 mcg inhalat.powder (Trelegy Ellipta) gabapentin 300 mg capsule 300 mg PO DAILY 08/24/19 05/10/24 05/10/24 History levothyroxine 25 mcg tablet 25 mcg PO DAILY 08/24/19 05/10/24 05/10/24 History montelukast 10 mg tablet 10 mg PO DAILY 08/24/19 05/10/24 05/10/24 History (Singulair) rosuvastatin 20 mg tablet (Crestor) 20 mg PO DAILY 08/24/19 05/10/24 05/10/24 History tramadol 50 mg tablet 50 mg PO Q6H PRN Spasms 08/24/19 05/10/24 04/18/24 History pantoprazole 40 mg tablet,delayed 40 mg PO BID 6 weeks #84 tabs 01/17/24 05/10/24 05/10/24 Rx release (Protonix) insulin glargine U-300 conc 300 30 unit SUBCUT DAILY 01/19/24 05/10/24 05/09/24 History unit/mL (1.5 mL) subcutaneous pen (Toujeo SoloStar U-300 Insulin) insulin lispro 100 unit/mL 1 sliding scale dose SUBCUT QAM 01/19/24 05/10/24 05/09/24 History subcutaneous pen lisinopril 10 mg tablet 10 mg PO DAILY 01/19/24 05/10/24 05/10/24 History metoprolol succinate 25 mg 25 mg PO DAILY 01/19/24 05/11/24 05/11/24 08:00 History tablet,extended release 24 hr sitagliptin phosphate 100 mg 100 mg PO DAILY 01/19/24 05/10/24 05/10/24 History tablet (Januvia) tirzepatide 7.5 mg/0.5 mL 7.5 mg SUBCUT .WEEKLY 03/20/24 05/10/24 04/25/24 History subcutaneous pen injector (Zackeryunjaro) hydrocodone 10 mg-acetaminophen 1 tab PO Q6H PRN pain from liver 04/17/24 12/09/2804/18/24 Rx 325 mg tablet metastasis 3 weeks #90 tabs amiodarone 200 mg tablet (Pacerone) 200 mg PO DAILY #60 tabs 04/20/24 05/10/24 05/10/24 Rx promethazine 12.5 mg rectal 12.5 mg [place] Q6H PRN Nausea 05/10/24 05/10/24 05/10/24 History suppository Allergies Allergy/AdvReac Type Severity Reaction Status Date / Time Penicillins Allergy Severe Unknown Verified 04/27/24 08:55 Sulfa (Sulfonamide Allergy Severe Unknown Verified 04/27/24 08:55 Antibiotics) prednisone Allergy ALGY-Redness Verified 04/27/24 08:55 of Skin Current Medications Generic Name Dose Route Start Last Admin Trade Name Freq PRN Reason Stop Dose Admin Fentanyl 50 mcg 05/11/24 10:58 05/11/24 12:51 Fentanyl 50 Mcg/Ml Inj 2ml IVP 50 mcg Q10M PRN Administration Preop Pain Sodium Chloride 1,000 mls @ 30 mls/hr 05/11/24 11:00 05/11/24 11:37 Sodium Chloride 0.9% IV 05/12/24 10:59 30 mls/hr .Q24H ANITA Administration PFSH Anesthesia Medical History Dyslipidemia Hypertrophic cardiomyopathy Obstructive sleep apnea Lung cancer Benign neoplasm of neck COPD (chronic obstructive pulmonary disease) History of high blood pressure Type 2 diabetes mellitus Essential hypertension Surgical History History of hysterectomy with bilateral oophorectomy History of bronchoscopy (12/27/23) Bronchoscopy/EBUS History of repair of right rotator cuff History of cholecystectomy Family History Father Bleeding disorder Anesthesia complication Mother Abdominal aneurysm Brother Heart disease Sister Diabetes Other CAD (coronary artery disease) Social History Smoking and tobacco/nicotine status: current some day tobacco/nicotine user cigarettes Packs smoked per day: 0.5 [ Other cigarette details: She previously smoked up to 3 PPD; currently 1/2 PPD.] Alcohol intake: never Substance/Drug Use: never Data Anesthesia Cardiac Studies: Echocardiogram 02/18/24 Cardiac Event Monitor 12/28/22
[2024-05-11] MEDS: insulin regular-human 100 units/1 mL 10 UNIT IVP (13:11)
--- NOTE | 2024-05-11 13:40 | PM.HP ---
History of Present Illness Jael Adame is a 64 year old female with lung cancer who needs chemotherapy access. Oncology requested Mediport placement. Review of Systems General: Reports: 10 or more systems reviewed and unremarkable except in HPI and below Medications/Allergies Home Medications Medication Instructions Recorded Confirmed Last Taken Type aspirin 81 mg chewable tablet 81 mg PO DAILY 08/24/19 05/11/24 05/11/24 08:00 History (Aspirin Childrens) bupropion HCl 150 mg 24 hr tablet, 150 mg PO QAM 08/24/19 05/10/24 05/10/24 History extended release cyclobenzaprine 10 mg tablet 10 mg PO TID PRN Spasms 08/24/19 05/10/24 04/18/24 History famotidine 40 mg tablet 40 mg PO DAILY 08/24/19 05/10/24 05/10/24 History fluticasone fur. 100 mcg-umeclid 1 inh inhalation DAILY 08/24/19 05/10/24 05/10/24 History 62.5 mcg-vilant 25 mcg inhalat.powder (Trelegy Ellipta) gabapentin 300 mg capsule 300 mg PO DAILY 08/24/19 05/10/24 05/10/24 History levothyroxine 25 mcg tablet 25 mcg PO DAILY 08/24/19 05/10/24 05/10/24 History montelukast 10 mg tablet 10 mg PO DAILY 08/24/19 05/10/24 05/10/24 History (Singulair) rosuvastatin 20 mg tablet (Crestor) 20 mg PO DAILY 08/24/19 05/10/24 05/10/24 History tramadol 50 mg tablet 50 mg PO Q6H PRN Spasms 08/24/19 05/10/24 04/18/24 History pantoprazole 40 mg tablet,delayed 40 mg PO BID 6 weeks #84 tabs 01/17/24 05/10/24 05/10/24 Rx release (Protonix) insulin glargine U-300 conc 300 30 unit SUBCUT DAILY 01/19/24 05/10/24 05/09/24 History unit/mL (1.5 mL) subcutaneous pen (Srinivas Franks U-300 Insulin) insulin lispro 100 unit/mL 1 sliding scale dose SUBCUT QAM 01/19/24 05/10/24 05/09/24 History subcutaneous pen lisinopril 10 mg tablet 10 mg PO DAILY 01/19/24 05/10/24 05/10/24 History metoprolol succinate 25 mg 25 mg PO DAILY 01/19/24 05/11/24 05/11/24 08:00 History tablet,extended release 24 hr sitagliptin phosphate 100 mg 100 mg PO DAILY 01/19/24 05/10/24 05/10/24 History tablet (Januvia) tirzepatide 7.5 mg/0.5 mL 7.5 mg SUBCUT .WEEKLY 03/20/24 05/10/24 04/25/24 History subcutaneous pen injector (Lei) hydrocodone 10 mg-acetaminophen 1 tab PO Q6H PRN pain from liver 04/17/24 05/10/24 04/18/24 Rx 325 mg tablet metastasis 3 weeks #90 tabs amiodarone 200 mg tablet (Pacerone) 200 mg PO DAILY #60 tabs 04/20/24 05/10/24 05/10/24 Rx promethazine 12.5 mg rectal 12.5 mg [place] Q6H PRN Nausea 05/10/24 05/10/24 05/10/24 History suppository Allergies Allergy/AdvReac Type Severity Reaction Status Date / Time Penicillins Allergy Severe Unknown Verified 04/27/24 08:55 Sulfa (Sulfonamide Allergy Severe Unknown Verified 04/27/24 08:55 Antibiotics) prednisone Allergy ALGY-Redness Verified 04/27/24 08:55 of Skin PFSH Acute PFSH: Medical History Dyslipidemia Hypertrophic cardiomyopathy Obstructive sleep apnea Lung cancer Benign neoplasm of neck COPD (chronic obstructive pulmonary disease) History of high blood pressure Type 2 diabetes mellitus Essential hypertension Surgical History History of hysterectomy with bilateral oophorectomy History of bronchoscopy (12/27/23) Bronchoscopy/EBUS History of repair of right rotator cuff History of cholecystectomy Family History Father Bleeding disorder Anesthesia complication Mother Abdominal aneurysm Brother Heart disease Sister Diabetes Other CAD (coronary artery disease) Social History Smoking and tobacco/nicotine status: current some day tobacco/nicotine user cigarettes Packs smoked per day: 0.5 [ Other cigarette details: She previously smoked up to 3 PPD; currently 1/2 PPD.] Alcohol intake: never Substance/Drug Use: never Vitals/I&O/Wt Last Vital Signs Temp 97.9 F 05/11/24 11:16 Pulse 73 05/11/24 11:16 Resp 16 05/11/24 12:51 BP 97/65 05/11/24 11:16 Pulse Ox 96 05/11/24 12:51 O2 Del Method Room Air 05/11/24 11:18 Weight last 48 hrs Weight 138 lb Physical Exam Narrative: General : Patient is well developed , no acute distress, oriented x3 Head : Normal cephalic, a-traumatic. Ears : Pinnae and external canal are normal. Hearing is normal. Eyes : PERRLA, Sclera and injection are normal. No conjunctival discharge. Nose : Mucous membranes are without erythema. Throat : buccal mucosa is normal, gums are without significant recession or hypertrophy. Lungs : Equal chest rise bilaterally, no use of accessory muscles, trachea is midline. Cor : Rate and rhythm are normal. Abdomen : Soft, ND, NT, no g/r/m Extremities : No edema, no cyanosis or clubbing, dorsalis pedis pulses are present bilaterally, non-tender to palpation of calves. Upper extremities are normal bilaterally. Back : non-tender to palpation, no CVA tenderness. Neuro : CN II - XII intact, Upper and lower extremities have equal and full strength A&P Assessment and plan (1) Malignant neoplasm of upper lobe, right bronchus or lung: Plan Mediport placement The risks and benefits of the procedure, including but not limited to, bleeding, infection, infection requiring Mediport removal antibiotic therapy and repeat surgery, damage to surrounding structures, scar, numbness, pain, pneumothorax requiring thoracostomy tube, were explained to the patient. He/She is understanding of the risks and wishes to proceed. Attestations Medical Necessity Statement*: Home Coding Level of Care Code Acute Code for Chg Fwd Diagnoses Malignant neoplasm of upper lobe, right bronchus or lung C34.11
[2024-05-11] MEDS: heparin, porcine 1,000 unit/mL INJ 10 mL 10000 UNIT INJECTION (15:04)
[2024-05-11] MEDS: lidocaine-epi 2% PF 1:200,000 20 mL SDV XX (15:05)
--- NOTE | 2024-05-11 15:16 | PM.OP ---
Operative Report Date of procedure: May 11, 2024 Surgeon: Dequan Payne DO Brief History: This is a very pleasant 64-year-old female who was diagnosed with small cell lung cancer. Oncology requested Mediport placement for chemotherapy access. The risks and benefits were explained and documented. Procedure: Pre-op diagnosis: Small cell lung cancer Post-op diagnosis: same Procedure done: Mediport placement Intraoperative interpretation of fluoroscopy Implants: PowerPort Specimens removed/disposition: None Surgeon: Dequan Payne DO Anesthesia: MAC and Local Estimated blood loss (mL): 5 Complications: None apparent Procedure: The patient was taken to the operating room and placed supine on the operating room table. All bony prominences were padded. She was given IV sedation and monitored throughout the case by the anesthesia personnel. SCDs were placed and turned on. The arms were tucked to the side. Patient received Ancef 2 g preoperatively IV. The bilateral chest wall was prepped and draped in usual sterile fashion using chlorhexidine base prep. Sterile drapes were applied. We did procedure pause prior to beginning. An 18 gauge needle was placed in the left subclavian vein. Dark, nonpulsatile blood was aspirated. A guidewire was placed through the needle centrally toward the atrial/vena caval junction. Fluoroscopy visualized good placement. The needle was removed and the guidewire was clipped to the drape with a hemostat. Further local anesthetic was infiltrated in the soft tissues of the left chest wall and a #15 blade was used to make a horizontal skin incision. A subcutaneous Mediport pocket was created using Bovie cautery, dissecting down through the skin and subcutaneous tissues. Meticulous hemostasis was achieved. The Mediport was sutured in position using 3-0 vicryl suture x2 stitches. A #15 blade was used to make a small skin chris around the guidewire insertion area. The Mediport tubing was tunneled through the subcutaneous tissues up to the needle insertion location. A dilator with a peel-away sheath was placed over the guidewire and placed centrally. After measuring the Mediport tubing was cut to length so that the tip would end at the atrial/vena caval junction. The inner cannula and the guidewire were removed, leaving the dilator sheath in place. The Mediport was flushed. The tip of the catheter was inserted through the peel-away sheath and the peel-away sheath removed in the standard fashion. The Mediport was accessed with a straight Hurd needle and dark, nonpulsatile blood was aspirated and flushed using heparinized saline to hep-lock the Mediport. Final fluoroscopy visualization showed no kink in the catheter and the tip of the Mediport tubing near the atrial/vena caval junction. There is no obvious pneumothorax. Both skin incisions were thoroughly irrigated and suctioned dry. Meticulous hemostasis noted. The dermis was approximated with 3-0 Vicryl in an interrupted fashion. Skin was closed with Dermabond. Patient was awakened from anesthesia and transferred via her cart to the recovery room in stable condition. All needle, sponge, and instrument counts were correct per the operating personnel x2 counts.
[2024-05-11] MEDS: HYDROcodone-acetaminophen 10-325 mg Tablet 1 TAB PO (16:23)
--- NOTE | 2024-05-11 16:32 | ANE.PACU2 ---
Inpatient post-anesthesia follow up: Airway intact: Yes Vital signs: Temperature 97.3 F Pulse Rate 77 Respiratory Rate 17 Blood Pressure 122/74 Pulse Oximetry 95 Oxygen Delivery Me thod Room Air Oxygen Flow Rate Fraction of Inspir ed Oxygen Hydration adequate: Yes Nausea and vomiting: No Pain level: 2 Mental status: Baseline
== END 2024-05-11 16:32 | disposition home or self-care (01) ==
PROVIDERS: Visit Provider Surgery
PROC: (CPT 36561; principal; 2024-05-11 12:40)
DX: C34.11 Malignant neoplasm of upper lobe, right bronchus or lung (principal); E78.5 Hyperlipidemia, unspecified; G47.33 Obstructive sleep apnea (adult) (pediatric); J44.9 Chronic obstructive pulmonary disease, unspecified; E11.9 Type 2 diabetes mellitus without complications; Z79.4 Long term (current) use of insulin; I10 Essential (primary) hypertension; F17.210 Nicotine dependence, cigarettes, uncomplicated; K21.9 Gastro-esophageal reflux disease without esophagitis; I48.91 Unspecified atrial fibrillation; Z79.82 Long term (current) use of aspirin
CPT/HCPCS: 36561; 36416; 71045; 76000; 77001; 82962; C1788; J1644; J1815; J2704; J3010; J3370; J7030

== ENCOUNTER 2024-05-23 08:00 | Oncology outpatient (recurring) (ONCR) | payer MEDICARE, MEDICAID, SELFPAY ==
[2024-05-10 09:39] LABS: Basophils % 0.2 %; Hematocrit 37.4 % (36-47); Lymphocytes # 1.2 10^3/uL (0.8-4.8); Lymphocytes % 12.7 %; Mean Corpuscular HGB Conc 29.7 g/dL (30-55); Mean Corpuscular Hemoglobin 29.1 pg (27-33); Mean Corpuscular Volume 97.9 fl (85-98); Mean Platelet Volume 12.1 fL (7.4-10.4); Monocytes # 0.5 10^3/uL (0.2-0.9); Neutrophils # 7.19 10^3/uL (1.8-7.7); Neutrophils % 79.7 %; Nucleated Red Blood Cells % 0 %; Platelet Count 316 10^3/cmm (157-399); Red Blood Count 3.82 10^6/uL (3.85-5.65); Red Cell Distribution Width 19.3 % (12.1-15.1); White Blood Count 9.03 10^3/uL (3.29-11.43)
[2024-05-10 10:05] LABS: Alanine Aminotransferase 69 U/L (0-33); Albumin Level 2.8 g/dL (3.5-5.2); Anion Gap 16.2 (5-19); Aspartate Amino Transferase 139 U/L (0-32); Blood Urea Nitrogen 23 mg/dL (8-23); Calcium 10.3 mg/dL (8.5-10.5); Carbon Dioxide 20 mmol/L (22-29); Chloride 97 mmol/L (98-107); Creatinine Clr Calc Pharmacy 58.1449; Globulin 3.3 g/dL (1.3-4.6); Glomerular Filtration Rate 222.6 mL/min (90-130); Glucose 295 mg/dL (65-115); Lactate Dehydrogenase 420 U/L (135-214); Osmolality Calculated 283 mOsm/kg (285-295); Potassium 4.2 mmol/L (3.5-5.1); Sodium 129 mmol/L (136-145); Total Bilirubin 6.2 mg/dL (0.15-1.2); Total Protein 6.1 g/dL (6.6-8.7)
[2024-05-10 10:20] LABS: Alkaline Phosphatase 2751 U/L (35-105)
[2024-05-15 08:50] LABS: Basophils % 0.1 %; Hematocrit 34.6 % (36-47); Lymphocytes # 0.9 10^3/uL (0.8-4.8); Lymphocytes % 11.3 %; Mean Corpuscular HGB Conc 29.2 g/dL (30-55); Mean Corpuscular Hemoglobin 28.2 pg (27-33); Mean Corpuscular Volume 96.6 fl (85-98); Mean Platelet Volume 12.9 fL (7.4-10.4); Monocytes # 0.7 10^3/uL (0.2-0.9); Monocytes % 8.3 %; Neutrophils # 6.61 10^3/uL (1.8-7.7); Neutrophils % 79.1 %; Nucleated Red Blood Cells % 0.2 %; Platelet Count 297 10^3/cmm (157-399); Red Blood Count 3.58 10^6/uL (3.85-5.65); Red Cell Distribution Width 21.2 % (12.1-15.1); White Blood Count 8.35 10^3/uL (3.29-11.43)
[2024-05-15 09:07] LABS: Alanine Aminotransferase 79 U/L (0-33); Albumin Level 2.4 g/dL (3.5-5.2); Anion Gap 14.2 (5-19); Aspartate Amino Transferase 138 U/L (0-32); Blood Urea Nitrogen 31 mg/dL (8-23); Calcium 10.7 mg/dL (8.5-10.5); Carbon Dioxide 24 mmol/L (22-29); Chloride 97 mmol/L (98-107); Creatinine Clr Calc Pharmacy 58.1449; Globulin 3.1 g/dL (1.3-4.6); Glomerular Filtration Rate 355.4 mL/min (90-130); Glucose 197 mg/dL (65-115); Osmolality Calculated 284 mOsm/kg (285-295); Potassium 4.2 mmol/L (3.5-5.1); Sodium 131 mmol/L (136-145); Total Protein 5.5 g/dL (6.6-8.7)
[2024-05-15 09:32] LABS: Alkaline Phosphatase 2417 U/L (35-105)
[2024-05-15 09:33] LABS: Total Bilirubin 8.5 mg/dL (0.15-1.2)
[2024-05-15] MEDS: sodium chloride 0.9% 250 ML 75 ML IV (10:29)
[2024-05-15] MEDS: acetaminophen 325 mg Tablet 650 MG PO (10:32)
[2024-05-15] MEDS: famotidine 20 mg/2 mL INJ IVP (10:32)
[2024-05-15 10:33] VITALS: RESP 18
[2024-05-15] MEDS: oxyCODONE 5 mg IR Tab/Cap PO (10:33)
[2024-05-15] MEDS: OLANZapine 5 mg TABLET PO (10:33)
[2024-05-15] MEDS: ondansetron 2 mg/ML SDV 2 mL 8 MG IVP (10:35)
[2024-05-15] MEDS: diphenhydrAMINE 50 mg/mL SDV 1mL 25 MG IVP (10:38)
[2024-05-15] MEDS: dexamethasone 4 mg/mL INJ 5 mL 12 MG IV (10:41)
[2024-05-15] MEDS: aprepitant 130 mg/18 ml SDV IVP (10:45)
[2024-05-15] MEDS: CARBOplatin 300 MG in sodium chloride 0.9% 500 ML 530 MG IV (11:23)
[2024-05-15] MEDS: [UNRECOGNIZED DRUG - REMARK] 504 MG IV (12:45)
[2024-05-15 15:53] VITALS: BP 98/64; PULSE 98; RESP 16; TEMP 36.8; O2SAT 96
[2024-05-16 08:22] VITALS: BP 107/72; PULSE 113; RESP 17; TEMP 36.5; O2SAT 93
[2024-05-16] MEDS: sodium chloride 0.9% 250 ML 75 ML IV (08:44)
[2024-05-16] MEDS: ondansetron 2 mg/ML SDV 2 mL 8 MG IVP (08:46)
[2024-05-16 09:10] VITALS: RESP 17; O2SAT 94
[2024-05-16] MEDS: morphine 4 mg/mL SDV 1 mL 0.5 MG IVP (09:10)
[2024-05-16] MEDS: [UNRECOGNIZED DRUG - REMARK] 504 MG IV (09:33)
[2024-05-16] MEDS: prochlorperazine 10 mg Tablet PO (11:23)
[2024-05-16 11:35] VITALS: BP 91/65; PULSE 104; RESP 18; TEMP 36.1; O2SAT 96
[2024-05-17 07:56] VITALS: BP 79/53; PULSE 95; O2SAT 97
[2024-05-17] MEDS: sodium chloride 0.9% 1,000 ML 999 ML IV (08:32)
[2024-05-17] MEDS: palonosetron 0.25 mg/5 mL SDV IVP (08:39)
[2024-05-17] MEDS: [UNRECOGNIZED DRUG - REMARK] 504 MG IV (09:01)
[2024-05-17] MEDS: pegfilgrastim 6 mg/0.6 mL Kit (onpro) SUBCUT (10:22)
[2024-05-17 12:31] VITALS: BP 97/57
[2024-05-19 10:28] VITALS: BP 89/56; PULSE 87; RESP 18; TEMP 36.3; O2SAT 92
[2024-05-19 10:52] LABS: Basophils # 0.1 10^3/uL (0.0-0.1); Basophils % 0.5 %; Eosinophils # 0.1 10^3/uL (0.0-0.8); Eosinophils % 0.4 %; Hematocrit 29.4 % (36-47); Lymphocytes # 0.5 10^3/uL (0.8-4.8); Mean Corpuscular HGB Conc 29.9 g/dL (30-55); Mean Corpuscular Hemoglobin 28.9 pg (27-33); Mean Corpuscular Volume 96.7 fl (85-98); Mean Platelet Volume 12.3 fL (7.4-10.4); Monocytes # 0.1 10^3/uL (0.2-0.9); Monocytes % 0.4 %; Neutrophils # 14.25 10^3/uL (1.8-7.7); Neutrophils % 79.7 %; Nucleated Red Blood Cells % 0 %; Platelet Count 220 10^3/cmm (157-399); Red Blood Count 3.04 10^6/uL (3.85-5.65); Red Cell Distribution Width 20.8 % (12.1-15.1)
[2024-05-19] MEDS: ondansetron 2 mg/ML SDV 2 mL 4 MG IVP (11:08)
[2024-05-19 11:15] LABS: Alanine Aminotransferase 88 U/L (0-33); Albumin Level 2.3 g/dL (3.5-5.2); Anion Gap 13.3 (5-19); Aspartate Amino Transferase 142 U/L (0-32); Blood Urea Nitrogen 26 mg/dL (8-23); Calcium 8.8 mg/dL (8.5-10.5); Carbon Dioxide 25 mmol/L (22-29); Chloride 94 mmol/L (98-107); Creatinine Clr Calc Pharmacy 59.0535; Globulin 2.5 g/dL (1.3-4.6); Glomerular Filtration Rate 123.4 mL/min (90-130); Glucose 179 mg/dL (65-115); Osmolality Calculated 275 mOsm/kg (285-295); Potassium 4.3 mmol/L (3.5-5.1); Sodium 128 mmol/L (136-145); Total Protein 4.8 g/dL (6.6-8.7)
[2024-05-19 11:29] LABS: Alkaline Phosphatase 2485 U/L (35-105); Total Bilirubin 11.9 mg/dL (0.15-1.2)
[2024-05-19 11:31] LABS: Slide Review Slide Review Perform
[2024-05-22 12:14] LABS: Basophils % 0.8 %; Eosinophils % 0.3 %; Hematocrit 24.9 % (36-47); Lymphocytes # 0.8 10^3/uL (0.8-4.8); Lymphocytes % 20.8 %; Mean Corpuscular HGB Conc 29.7 g/dL (30-55); Mean Corpuscular Hemoglobin 28.8 pg (27-33); Mean Corpuscular Volume 96.9 fl (85-98); Mean Platelet Volume 12.8 fL (7.4-10.4); Monocytes # 0.1 10^3/uL (0.2-0.9); Neutrophils # 2.78 10^3/uL (1.8-7.7); Neutrophils % 69.6 %; Nucleated Red Blood Cells % 0 %; Platelet Count 107 10^3/cmm (157-399); Red Blood Count 2.57 10^6/uL (3.85-5.65); Red Cell Distribution Width 20.7 % (12.1-15.1); White Blood Count 3.99 10^3/uL (3.29-11.43)
[2024-05-22 12:30] LABS: Bilirubin Urine 3+ (Negative); Blood Urine 1+ (Negative); Glucose Urine UA Negative (Normal); Ketones Urine Negative (Negative); Leukocyte Esterase Urine 2+ (Negative); Nitrate Urine Positive (Negative); Protein Urine 2+ (Negative); Urine Appearance Cloudy (CLEAR); Urine Color Dark Yellow (Yellow); pH Urine 7.5 (5-7)
[2024-05-22 12:33] LABS: Add Urine Microscopic? YES; Bacteria Urine EXCEEDS /hpf; Hyaline Casts Urine 5.36 /lpf; Squamous Epithelial Cell Urine 0-5 /hpf (0-5); WBC Urine 51-100 /hpf (0-5)
[2024-05-22 12:33] LABS: Alanine Aminotransferase 79 U/L (0-33); Albumin Level 2.4 g/dL (3.5-5.2); Anion Gap 11.1 (5-19); Aspartate Amino Transferase 83 U/L (0-32); Blood Urea Nitrogen 14 mg/dL (8-23); Calcium 8.2 mg/dL (8.5-10.5); Carbon Dioxide 27 mmol/L (22-29); Chloride 93 mmol/L (98-107); Creatinine Clr Calc Pharmacy 60.3661; Globulin 2.4 g/dL (1.3-4.6); Glomerular Filtration Rate 123.4 mL/min (90-130); Glucose 208 mg/dL (65-115); Osmolality Calculated 271 mOsm/kg (285-295); Potassium 4.1 mmol/L (3.5-5.1); Sodium 127 mmol/L (136-145); Total Protein 4.8 g/dL (6.6-8.7)
[2024-05-22 12:48] LABS: Total Bilirubin 11.1 mg/dL (0.15-1.2)
[2024-05-22 12:50] LABS: Alkaline Phosphatase 2500 U/L (35-105)
[2024-05-22 12:51] LABS: Slide Review Slide Review Perform
[2024-05-22 13:11] LABS: Add Urine Culture? Yes; Amorphous Sediment Urine 1+ /hpf; UA Slide Review UA Slide Review Perf
[2024-05-23] VITALS (11 sets, daily range): BP systolic 90–117; BP diastolic 59–84; PULSE 82–93; RESP 16–18; TEMP 36.2–36.9; O2SAT 94–98
[2024-05-23] MEDS: diphenhydrAMINE 25 mg Capsule PO (08:09)
[2024-05-23] MEDS: sodium chloride 0.9% 250 mL Bag IV (08:09)
[2024-05-23] MEDS: acetaminophen 325 mg Tablet PO (08:09)
[2024-05-23] MEDS: FUROsemide 10 mg/mL SDV 2mL 20 MG IVP (11:14)
== END 2024-05-23 23:59 | disposition home or self-care (01) ==
PROVIDERS: Internal Medicine; Internal Medicine Medical Oncology; Nurse Practitioner Family; PCP Nurse Practitioner Family; Visit Provider Radiology Radiation Oncology
DX: C34.11 Malignant neoplasm of upper lobe, right bronchus or lung (principal); Z53.9 Procedure and treatment not carried out, unspecified reason; Z79.899 Other long term (current) drug therapy; D64.9 Anemia, unspecified
CPT/HCPCS: 36415; 36430; 36591; 80053; 81001; 83615; 85025; 86850; 86900; 86920; 87077; 87086; 87186; 96374; 96375; 96377; 96413; 96417; 99204; 99214; 99215; J0185; J1100; J1200; J1940; J2270; J2405; J2469; J2506; J3490; J7030; J7040; J7050; J9045; J9181; P9016; Q0164

== ENCOUNTER 2024-06-04 13:19 | Emergency (ER) | payer MEDICARE, MEDICAID, SELFPAY ==
[2024-06-04] VITALS (7 sets, daily range): BP systolic 96–104; BP diastolic 64–72; PULSE 53–123; RESP 18–25; TEMP 37.2; O2SAT 92–96; BMI 26.9
--- NOTE | 2024-06-04 14:00 | XRR_ITS ---
PROCEDURE INFORMATION: Exam: XR Chest Exam date and time: 06/04/2024 2:52 PM Age: 64 years old Clinical indication: Other: Back pain; Additional info: Possible sepsis, left flank/back pain TECHNIQUE: Imaging protocol: Radiologic exam of the chest. Views: 1 view. COMPARISON: CR XR chest 1V portable [id number] 05/11/2024 3:28 PM FINDINGS: Tubes, catheters and devices: A left-sided VAD is in good position with the catheter tip in the lower SVC. Lungs: Unremarkable. No consolidation or mass. Pleural spaces: Unremarkable. No pleural effusion. No pneumothorax. Heart/Mediastinum: Unremarkable. No cardiomegaly. Bones/joints: Unremarkable. XR/XR chest 1V portable [id number] IMPRESSION: No acute findings.
--- NOTE | 2024-06-04 14:15 | ECG_ITS ---
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 Measurements Intervals Christiana Rate: 106 P: 67 NJ: 166 QRS: 54 QRSD: 60 T: 66 QT: 321 QTc: 426 Interpretive Statements SINUS TACHYCARDIA WITH FREQUENT ECTOPIC PREMATURE COMPLEXES LOW QRS VOLTAGE [QRS DEFLECTION < 0.5/1.0 mV IN LIMB/CHEST LEADS] SEPTAL MYOCARDIAL INFARCTION , OF INDETERMINATE AGE [40+ ms Q WAVE IN V1/V2] Compared to ECG 04/19/2024 12:14:59 Atrial fibrillation no longer present Ventricular premature complex(es) no longer present Aberrant conduction of supraventricular beat(s) no longer present Myocardial infarct finding still present Electronically Signed On 06-04-2024 20:11:09 [employer] OVER[employer]UL[employer] by Zeus Alvarado M.D. [email or web address]
[2024-06-04 14:17] LABS: Hematocrit 29.8 % (36-47); Mean Corpuscular HGB Conc 30.2 g/dL (30-55); Mean Corpuscular Hemoglobin 29.8 pg (27-33); Mean Corpuscular Volume 98.7 fl (85-98); Mean Platelet Volume 12.7 fL (7.4-10.4); Platelet Count 149 10^3/cmm (157-399); Red Blood Count 3.02 10^6/uL (3.85-5.65); Red Cell Distribution Width 21.5 % (12.1-15.1); White Blood Count 17.76 10^3/uL (3.29-11.43)
[2024-06-04 14:27] LABS: Alanine Aminotransferase 59 U/L (0-33); Albumin Level 2.1 g/dL (3.5-5.2); Anion Gap 12.3 (5-19); Aspartate Amino Transferase 102 U/L (0-32); Blood Urea Nitrogen 12 mg/dL (8-23); Calcium 8.1 mg/dL (8.5-10.5); Carbon Dioxide 25 mmol/L (22-29); Chloride 93 mmol/L (98-107); Creatinine Clr Calc Pharmacy 57.1543; Globulin 2.9 g/dL (1.3-4.6); Glomerular Filtration Rate 123.4 mL/min (90-130); Glucose 142 mg/dL (65-115); Osmolality Calculated 264 mOsm/kg (285-295); Potassium 4.3 mmol/L (3.5-5.1); Sodium 126 mmol/L (136-145)
[2024-06-04 14:30] LABS: Slide Review Slide Review Perform
[2024-06-04 14:32] LABS: Absolute Segmented Neutrophil 11.4 10/cmm (1.6-7.1); Band Neutrophils Absolute 2.3 10^3/cmm (0.0-1.2); Eosinophils 0 %; Lymphocytes 12 %; Lymphocytes Absolute 2.1 10^3/cmm (1.2-3.4); Monocytes Absolute 0.4 10^3/cmm (0.1-0.6); Segmented Neutrophils 64 %; Total Cells Counted 100 (0-100)
[2024-06-04 14:33] LABS: Absolute Neutrophil 13.7 10^3/cmm (1.4-6.5); Anisocytosis 1+; Giant Platelets Trace; Platelet Estimate Normal (Normal)
[2024-06-04 14:41] LABS: Alkaline Phosphatase 2039 U/L (35-105); Total Bilirubin 12.3 mg/dL (0.15-1.2)
--- NOTE | 2024-06-04 14:56 | W.ED.BACK ---
HPI - Back Pain/Injury General: Chief Complaint: Back Pain/Injury Stated Complaint: left flank pain Time Seen by Provider: 06/04/24 13:24 History of Present Illness: 64-year-old female with a history of non-small cell lung cancer with metastasis to the liver status posttreatment with chemotherapy and radiation. Patient now being treated with chemotherapy again (last 05/15) after being given the option of palliative therapy versus trial of another round of chemo. Patient is here today with left hip/flank/pelvic pain. She reports this started yesterday. She does not have any known trauma. She reports she had a fever of 101 degrees earlier at home today. She reports she took some oxycodone without Tylenol prior to arrival. Upon arrival she does not have a fever. She reports she has not been able to get up and around very well since her cancer diagnosis but it has been particularly bad since she has developed this discomfort in the left lower abdomen/pelvis/flank. She reports she has yellowy diarrhea which is chronic since her bilirubin is so high. She denies any change to her respiratory symptoms. She is on 2 L of oxygen at all times. She denies any classic symptoms of UTI. However, she notes she just got off antibiotics 2 days ago which she was taking for a UTI. Related Data Home Medications Medication Instructions Recorded Confirmed bupropion HCl 150 mg 24 hr tablet, 150 mg PO QAM 08/24/19 06/04/24 extended release levothyroxine 25 mcg tablet 25 mcg PO DAILY 08/24/19 06/04/24 montelukast 10 mg tablet 10 mg PO DAILY 08/24/19 06/04/24 (Singulair) rosuvastatin 20 mg tablet (Crestor) 20 mg PO DAILY 08/24/19 06/04/24 insulin glargine U-300 conc 300 30 unit SUBCUT DAILY 01/19/24 06/04/24 unit/mL (1.5 mL) subcutaneous pen (Srinivas Franks U-300 Insulin) insulin lispro 100 unit/mL 1 sliding scale dose SUBCUT QAM 01/19/24 06/04/24 subcutaneous pen metoprolol succinate 25 mg 25 mg PO DAILY 01/19/24 06/04/24 tablet,extended release 24 hr sitagliptin phosphate 100 mg 100 mg PO DAILY 01/19/24 06/04/24 tablet (Januvia) tirzepatide 7.5 mg/0.5 mL 7.5 mg SUBCUT .WEEKLY 03/20/24 06/04/24 subcutaneous pen injector (Lei) cholecalciferol (vitamin D3) 25 25 mcg PO DAILY 06/04/24 06/04/24 mcg (1,000 unit) capsule (Vitamin D3) vitamin B complex 1 cap PO DAILY 06/04/24 06/04/24 Previous Rx's Medication Instructions Recorded amiodarone 200 mg tablet (Pacerone) 200 mg PO DAILY #60 tabs 04/20/24 lorazepam 1 mg tablet 0.5 - 1 mg (0.5 - 1 x 1 mg) PO Q6H 05/15/24 PRN Severe Nausea #30 tabs oxycodone 5 mg tablet 5 mg PO Q6H PRN pain 30 days #60 05/15/24 tabs prochlorperazine maleate 10 mg 10 mg PO Q6H PRN Mild Nausea #30 05/15/24 tablet (Compazine) tabs Hospital Bed #1 ea 05/16/24 furosemide 40 mg tablet 40 mg PO DAILY PRN weight gain #30 05/29/24 tabs potassium chloride 20 mEq 20 meq PO BID #60 tabs 05/29/24 tablet,extended release spironolactone 50 mg tablet 50 mg PO QAM for swelling #30 tabs 05/29/24 (Aldactone) Allergies Allergy/AdvReac Type Severity Reaction Status Date / Time Penicillins Allergy Severe Unknown Verified 05/29/24 08:30 Sulfa (Sulfonamide Allergy Severe Unknown Verified 05/29/24 08:30 Antibiotics) prednisone Allergy ALGY-Redness Verified 05/29/24 08:30 of Skin Review of Systems Narrative: Left hip, pelvis, low back and flank pain. Poor appetite and poor p.o. intake. Fatigue. Diarrhea which is yellow in color. Fever reported at home. Generalized weakness. No URI symptoms. No chest pain. No hemoptysis. No change in chronic dyspnea. No vomiting. Chronic pain in the right upper quadrant which she attributes to her liver metastases. [facility] ED PFSH: Medical History Port-A-Cath in place Dyslipidemia Hypertrophic cardiomyopathy Obstructive sleep apnea Lung cancer Benign neoplasm of neck COPD (chronic obstructive pulmonary disease) History of high blood pressure Type 2 diabetes mellitus Essential hypertension Surgical History History of hysterectomy with bilateral oophorectomy History of bronchoscopy (12/27/23) Bronchoscopy/EBUS History of repair of right rotator cuff History of cholecystectomy Family History Father Bleeding disorder Anesthesia complication Mother Abdominal aneurysm Brother Heart disease Sister Diabetes Other CAD (coronary artery disease) Social History Smoking and tobacco/nicotine status: current every day tobacco/nicotine user cigarettes Packs smoked per day: 0.5 [ Other cigarette details: She previously smoked up to 3 PPD; currently 1/2 PPD.] Alcohol intake: never Substance/Drug Use: never Physical Exam Narrative: EXAM NARRATIVE: Awake, alert, oriented. No acute distress. She is jaundiced. Lung exam is surprisingly clear. No increased work of breathing. 2 L of oxygen by nasal cannula. Radial pulse is 1+. Patient has poor skin turgor and appears clinically dehydrated. She has some tenderness over the left pelvic brim and all along the left flank and lumbar region. She also has some tenderness in the left lower quadrant of the abdomen near the pelvis. Patient does not endorse any tenderness in the right upper quadrant. Const: COMMON NORMALS: no limitations, alert and well nourished EXAM LIMITATIONS: no altered mental status HENMT: COMMON NORMALS: normocephalic, atraumatic and external ears normal HEAD & SCALP: normocephalic and atraumatic EXTERNAL EAR: Yes external ears normal MOUTH: no muffled voice Eye: COMMON NORMALS: EOMs intact bilaterally, conjunctivae normal and no scleral icterus CONJUNCTIVA: Yes conjunctivae normal Neck/C-Spine: GENERAL: Yes normal visual inspection and Yes trachea midline Resp: COMMON NORMALS: normal respiratory effort and No use of accessory muscles Cardio: COMMON NORMALS: regular rate and regular rhythm RATE: regular rate RHYTHM: regular rhythm GI: COMMON NORMALS: Soft to palpation PALPATION: Yes Soft to palpation and No Guarding due to palpation present (GI) Neuro: COMMON NORMALS: moves all extremities, no focal motor deficits and no sensory deficits noted SENSORIUM/ORIENTATION: Yes alert SPEECH: speech normal Psych: COMMON NORMALS: mental status grossly normal, Normal thought process present, cooperative, normal affect and speech normal SPEECH: Yes normal speech THOUGHT PROCESS: Normal thought process present Skin: COMMON NORMALS: no rashes or lesions noted GENERAL SKIN EXAM: no rashes or lesions noted Course ED course: TLSO brace has been ordered. Patient has oxycodone at home. She has follow-up with her oncologist tomorrow. Discussed the abnormal lab and imaging findings with patient and family members. At this time no further indication for admission to the hospital as nothing will be done emergently overnight and patient has follow-up tomorrow. Patient reports her pain is controlled. Her heart rate is down from 123 to 90s. She reports she is able to move around now without severe pain. Vital Signs: Vital signs: Vital Signs Temperature 98.9 F 06/04/24 13:20 Pulse Rate 99 06/04/24 15:24 Respiratory Rate 22 H 06/04/24 15:32 Blood Pressure 96/72 06/04/24 15:24 Pulse Oximetry 96 06/04/24 15:24 Oxygen Delivery Me thod Nasal Cannula 06/04/24 15:24 Oxygen Flow Rate 2 06/04/24 14:24 MDM - Back Pain/Injury Medical Decision Making Large differential diagnosis including pathologic fracture, metastasis to bone, UTI, metastasis to peritoneum or pelvis, colitis, diverticulitis, pyelonephritis, obstructive uropathy, bladder outlet obstruction, metastasis to the mesentery, obstruction of pelvic or intra-abdominal veins, and multiple others. I discussed with patient and son. They were given the options of pain control versus doing a full workup to see what is going on. Patient reports she does not have a good understanding of whether the chemotherapy she is on has a good chance of controlling her cancer. This point she wants to go and proceed with full CT scan of the abdomen and pelvis, urine, labs in order to figure out what is going on. She is going to have a claudia conversation with her oncologist to figure out what the likelihood is that her chemotherapy will be of benefit. Labs Patient has leukocytosis, anemia, low platelets, hyponatremia, hypochloremia, elevated bilirubin and alkaline phosphatase and several other lab abnormalities. These are all abnormal but they appear relatively stable. The urine analysis shows some leukocyte esterase and nitrates with white blood cells but no bacteria. She just finished antibiotics. She is not having any UTI symptoms. I do not think this is her primary pathology. Urine culture can be obtained. 06/04/24 13:54 06/04/24 13:54 Radiology Impressions Chest X-Ray 06/04/24 14:00 IMPRESSION: No acute findings. Abdomen/Pelvis CT 06/04/24 15:09 IMPRESSION: 1. Numerous metastatic lesions involving the liver. Some of the lesions have improved since 04/14/2024 and some lesions have worsened. 2. Worsening bony metastatic disease 3. Stable periaortic adenopathy Lumbar Spine CT 06/04/24 15:39 IMPRESSION: Metastatic lesions involving L2, L4 and L5 with a pathologic compression fracture of L2 Laboratory Results WBC 17.76 10^3/uL (3.29-11.43) H 06/04/24 13:54 RBC 3.02 10^6/uL (3.85-5.65) L 06/04/24 13:54 Hgb 9.00 g/dL (11.27-16.99) L 06/04/24 13:54 Hct 29.8 % (36-47) L 06/04/24 13:54 MCV 98.7 fl (85-98) H 06/04/24 13:54 MCH 29.8 pg (27-33) 06/04/24 13:54 MCHC 30.2 g/dL (30-55) 06/04/24 13:54 RDW 21.5 % (12.1-15.1) H 06/04/24 13:54 Plt Count 149 10^3/cmm (157-399) L 06/04/24 13:54 MPV 12.7 fL (7.4-10.4) H 06/04/24 13:54 Lymph % (Auto) Not Reportable 06/04/24 13:54 Gilchrist % (Auto) Not Reportable 06/04/24 13:54 Lymph # (Auto) Not Reportable 06/04/24 13:54 Gilchrist # (Auto) Not Reportable 06/04/24 13:54 Total Counted 100 (0-100) 06/04/24 13:54 Atypical Lymphs % 0.0 % (0-5) 06/04/24 13:54 Absolute Neutrophils 13.7 10^3/cmm (1.4-6.5) H 06/04/24 13:54 Segmented Neutrophils 64 % 06/04/24 13:54 Band Neutrophils 13.0 % 06/04/24 13:54 Absolute Lymphocytes 2.1 10^3/cmm (1.2-3.4) 06/04/24 13:54 Lymphocytes (Manual) 12 % 06/04/24 13:54 Monocytes (Manual) 2.0 % 06/04/24 13:54 Absolute Monocytes 0.4 10^3/cmm (0.1-0.6) 06/04/24 13:54 Eosinophils (Manual) 0 % 06/04/24 13:54 Absolute Eosinophils 0.0 10^3/cmm (0.0-0.7) 06/04/24 13:54 Basophils (Manual) 0.0 % 06/04/24 13:54 Absolute Basophils 0.0 10^3/cmm (0.0-0.2) 06/04/24 13:54 Metamyelocytes 7.0 % 06/04/24 13:54 Myelocytes 2.0 % 06/04/24 13:54 Platelet Estimate Normal (Normal) 06/04/24 13:54 Giant Platelets Trace 06/04/24 13:54 Anisocytosis 1+ H 06/04/24 13:54 Sodium 126 mmol/L (136-145) L 06/04/24 13:54 Potassium 4.3 mmol/L (3.5-5.1) 06/04/24 13:54 Chloride 93 mmol/L (98-107) L 06/04/24 13:54 Carbon Dioxide 25 mmol/L (22-29) 06/04/24 13:54 Anion Gap 12.3 (5-19) 06/04/24 13:54 BUN 12 mg/dL (8-23) 06/04/24 13:54 Creatinine 0.5 mg/dL (0.5-0.9) 06/04/24 13:54 GFR Calculation 123.4 mL/min (90-130) 06/04/24 13:54 Glucose 142 mg/dL (65-115) H 06/04/24 13:54 Calculated Osmolality 264 mOsm/kg (285-295) L 06/04/24 13:54 Lactic Acid 1.0 mmol/L (0.5-2.2) 06/04/24 13:54 Calcium 8.1 mg/dL (8.5-10.5) L 06/04/24 13:54 Total Bilirubin 12.3 mg/dL (0.15-1.2) H* 06/04/24 13:54 AST 102 U/L (0-32) H 06/04/24 13:54 ALT 59 U/L (0-33) H 06/04/24 13:54 Alkaline Phosphatase 2039 U/L (35-105) H* 06/04/24 13:54 Total Protein 5.0 g/dL (6.6-8.7) L 06/04/24 13:54 Albumin 2.1 g/dL (3.5-5.2) L 06/04/24 13:54 Globulin 2.9 g/dL (1.3-4.6) 06/04/24 13:54 Urine Color Dark yellow (Yellow) A 06/04/24 15:39 Urine Appearance Clear (CLEAR) 06/04/24 15:39 Urine pH 6.5 (5-7) 06/04/24 15:39 Ur Specific [place] 1.026 (1.005-1.030) 06/04/24 15:39 Urine Protein 1+ (Negative) A 06/04/24 15:39 Urine Glucose (UA) Negative (Normal) 06/04/24 15:39 Urine Ketones Negative (Negative) 06/04/24 15:39 Urine Blood Negative (Negative) 06/04/24 15:39 Urine Nitrate Positive (Negative) A 06/04/24 15:39 Urine Bilirubin 3+ (Negative) H 06/04/24 15:39 Urine Urobilinogen 1.0 mg/dL (Negative) 06/04/24 15:39 Ur Leukocyte Esterase 1+ (Negative) A 06/04/24 15:39 Urine RBC 3-5 /hpf (0-2) 06/04/24 15:39 Urine WBC 0-5 /hpf (0-5) 06/04/24 15:39 Ur Squamous Epith Cells 11-20 /hpf (0-5) 06/04/24 15:39 Urine Bacteria None seen /hpf (NONE) 06/04/24 15:39 Hyaline Casts 1.65 /lpf 06/04/24 15:39 All radiology interpretation(s) finalized by discharge ED provider radiology interpretation(s): Multiple metastatic lesions are noted in the lumbar spine. A pathologic compression fracture is noted within the left side of the L2 vertebral body. A pathologic compression fracture also involves the inferior endplate of the T11 vertebral body. Discharge Plan Discharge Patient Disposition: Home Clinical Impression: Pathologic compression fracture of lumbar vertebra, Anemia, Pathologic compression fracture of thoracic vertebra, Chronic hyponatremia, Protein calorie malnutrition Condition: Stable Prescriptions: No Action metoprolol succinate 25 mg tablet extended release 24 hr 25 mg PO DAILY insulin lispro 100 unit/mL insulin pen 1 sliding scale dose SUBCUT QAM insulin glargine U-300 conc [Toujeo SoloStar U-300 Insulin] 300 unit/mL (1.5 mL) insulin pen 30 unit SUBCUT DAILY Januvia 100 mg tablet 100 mg PO DAILY lorazepam 1 mg tablet 0.5 - 1 mg PO Q6H PRN (Reason: Severe Nausea) Qty: 30 0RF prochlorperazine maleate [Compazine] 10 mg tablet 10 mg PO Q6H PRN (Reason: Mild Nausea) Qty: 30 1RF oxycodone 5 mg tablet 5 mg PO Q6H PRN (Reason: pain) 30 Days Qty: 60 0RF (DME) Hospital Bed See Rx Instructions .Route .MEDSUPPLY Qty: 1 0RF Rx Instructions: Hospital bed furosemide 40 mg tablet 40 mg PO DAILY PRN (Reason: weight gain) Qty: 30 6RF spironolactone [Aldactone] 50 mg tablet 50 mg PO QAM Qty: 30 3RF potassium chloride 20 mEq tablet extended release 20 meq PO BID Qty: 60 3RF rosuvastatin [Crestor] 20 mg Tablet 20 mg PO DAILY bupropion HCl 150 mg Tablet Extended Release 24 Hr 150 mg PO QAM levothyroxine 25 mcg Tablet 25 mcg PO DAILY montelukast [Singulair] 10 mg Tablet 10 mg PO DAILY vitamin B complex Capsule 1 cap PO DAILY cholecalciferol (vitamin D3) [Vitamin D3] 25 mcg (1,000 unit) Capsule 25 mcg PO DAILY Mounjaro 7.5 mg/0.5 mL pen injector 7.5 mg SUBCUT .WEEKLY amiodarone [Pacerone] 200 mg Tablet 200 mg PO DAILY Qty: 60 0RF Rx Instructions: Take 200 mg twice daily for next 1 week followed by 200 mg daily Discharge Orders: Discharge ED (Routine); Ordered 06/04/24 Ordered By: Joshua Melgar Referrals: Lavern Henderson, [facility] [Primary Care Provider] - Patient Instructions: Vertebral Compression Fracture (ED), Opioid Safety, Pain Management Activity Restrictions/Additional Instructions: You were found to have pathologic compression fractures in T11 and L2. This refers to the fact that there appears to be cancer invasion into the bone causing weakness of the bone. That weakness then translated into compression of the bone. This can cause significant pain with movement. It can radiate down anterior left hip and leg at times. The treatment for most pathologic compression fractures is aimed at treating the cancer. Please talk to your oncologist tomorrow at your scheduled appointment. You may use your oxycodone every 6 hours as needed, as prescribed. Use a TLSO brace when you are out of bed. Coding Level of Care Code ED [employer] Gr[employer] Loader for Samantha Cruz
--- NOTE | 2024-06-04 15:09 | CTR_ITS ---
PROCEDURE INFORMATION: Exam: CT Abdomen And Pelvis With Contrast Exam date and time: 06/04/2024 3:20 PM Age: 64 years old Clinical indication: Abdominal pain; Localized; Left; Prior surgery; Surgery date: 6+ months; Surgery type: Gb; Additional info: Metastatic lung CA; Pain in left pelvis/hip/low abd + fever TECHNIQUE: Imaging protocol: Computed tomography of the abdomen and pelvis with contrast. Radiation optimization: All CT scans at this facility use at least one of these dose optimization techniques: automated exposure control; mA and/or kV adjustment per patient size (includes targeted exams where dose is matched to clinical indication); or iterative reconstruction. Contrast material: OMNIPAQUE 350; Contrast volume: 80 ml; Contrast route: INTRAVENOUS (IV); COMPARISON: CT chest abdpel w/*[id number] 04/14/2024 9:46 AM RADIATION DOSE METRICS: Total DLP (mGy-cm): 586.36 FINDINGS: Lungs: Lung bases are clear. No pleural effusion. Pleural spaces: Tiny bilateral pleural effusions are noted. Liver: Numerous metastatic lesions are scattered throughout the liver. The largest lesion is quite irregular and measures about 11 cm in diameter within the medial segment of the left hepatic lobe. Gallbladder and biliary ducts: The gallbladder has been resected. Pancreas: Normal. No ductal dilation. Spleen: Normal. No splenomegaly. Adrenal glands: Normal. No mass. Kidneys and ureters: Normal. No hydronephrosis. Stomach and bowel: Unremarkable. No obstruction. No mucosal thickening. Appendix: No evidence of appendicitis. Intraperitoneal space: Mild ascites is noted. Vasculature: Unremarkable. No abdominal aortic aneurysm. Lymph nodes: There is a group of mildly enlarged lymph nodes in the left periaortic space. The largest node measures 1.5 cm in diameter. Urinary bladder: Unremarkable as visualized. Reproductive: Unremarkable as visualized. Bones/joints: Multiple metastatic lesions are noted in the lumbar spine. A pathologic compression fracture is noted within the left side of the L2 vertebral body. A pathologic compression fracture also involves the inferior endplate of the T11 vertebral body. Soft tissues: Unremarkable. CT/CT abdomen pelvis w con* [id number] IMPRESSION: 1. Numerous metastatic lesions involving the liver. Some of the lesions have improved since 04/14/2024 and some lesions have worsened. 2. Worsening bony metastatic disease 3. Stable periaortic adenopathy
[2024-06-04] MEDS: iohexol 350 mg/mL 500 mL Btl (per mL) IV (15:21)
[2024-06-04] MEDS: ondansetron 2 mg/ML SDV 2 mL 4 MG IVP (15:30)
[2024-06-04] MEDS: morphine 4 mg/mL SDV 1 mL IVP (15:32)
--- NOTE | 2024-06-04 15:39 | CTR_ITS ---
PROCEDURE INFORMATION: Exam: CT Lumbar Spine Without Contrast Exam date and time: 06/04/2024 3:20 PM Age: 64 years old Clinical indication: Low back pain; Additional info: Atraumatic pain; Eval for metastasis or pathologic FX TECHNIQUE: Imaging protocol: Computed tomography of the lumbar spine without contrast. Radiation optimization: All CT scans at this facility use at least one of these dose optimization techniques: automated exposure control; mA and/or kV adjustment per patient size (includes targeted exams where dose is matched to clinical indication); or iterative reconstruction. COMPARISON: PT PET skull to thigh INIT [id number] 01/11/2024 9:33 AM RADIATION DOSE METRICS: Total DLP (mGy-cm): 0.01 FINDINGS: Bones/joints: There is a rounded metastatic lesion involving the left side of the L2 vertebral body with a pathologic compression fracture noted. A rounded metastatic lesion involves the left side of the L4 vertebral body. A poorly defined metastatic lesion involves the right side of the L5 vertebral body. Soft tissues: Unremarkable. CT/CT lumbar spine recon [id number] IMPRESSION: Metastatic lesions involving L2, L4 and L5 with a pathologic compression fracture of L2
[2024-06-04 15:46] LABS: Bilirubin Urine 3+ (Negative); Blood Urine Negative (Negative); Glucose Urine UA Negative (Normal); Ketones Urine Negative (Negative); Leukocyte Esterase Urine 1+ (Negative); Nitrate Urine Positive (Negative); Protein Urine 1+ (Negative); Specific Gravity, Urine 1.026 (1.005-1.030); Urine Appearance Clear (CLEAR); Urine Color Dark Yellow (Yellow); pH Urine 6.5 (5-7)
[2024-06-04 15:51] LABS: Add Urine Microscopic? YES; Bacteria Urine None Seen /hpf; Hyaline Casts Urine 1.65 /lpf; WBC Urine 0-5 /hpf (0-5)
== END 2024-06-04 18:43 | disposition home or self-care (01) ==
PROVIDERS: Emergency Provider Emergency Medicine; PCP Nurse Practitioner Family
DX: M48.54XA Collapsed vertebra, not elsewhere classified, thoracic region, initial encounter for fracture (principal); M48.56XA Collapsed vertebra, not elsewhere classified, lumbar region, initial encounter for fracture; E87.1 Hypo-osmolality and hyponatremia; E46 Unspecified protein-calorie malnutrition; Z79.4 Long term (current) use of insulin; F17.210 Nicotine dependence, cigarettes, uncomplicated; E11.9 Type 2 diabetes mellitus without complications; J44.9 Chronic obstructive pulmonary disease, unspecified; I10 Essential (primary) hypertension; Z85.118 Personal history of other malignant neoplasm of bronchus and lung; C78.7 Secondary malignant neoplasm of liver and intrahepatic bile duct; E78.5 Hyperlipidemia, unspecified
CPT/HCPCS: 36415; 36591; 71045; 74177; 80053; 81001; 83605; 85007; 85025; 87040; 87086; 93005; 96361; 96374; 96375; 99285; J1642; J2270; J2405; J7030

== ENCOUNTER 2024-06-05 12:45 | Oncology outpatient (recurring) (ONCR) | payer MEDICARE, MEDICAID, SELFPAY ==
[2024-05-29 08:22] LABS: Basophils # 0.1 10^3/uL (0.0-0.1); Basophils % 0.5 %; Eosinophils % 0.1 %; Hematocrit 32.6 % (36-47); Lymphocytes # 1.7 10^3/uL (0.8-4.8); Lymphocytes % 10.1 %; Mean Corpuscular HGB Conc 30.7 g/dL (30-55); Mean Corpuscular Hemoglobin 29.1 pg (27-33); Mean Corpuscular Volume 94.8 fl (85-98); Monocytes # 1.3 10^3/uL (0.2-0.9); Monocytes % 7.8 %; Neutrophils # 11.92 10^3/uL (1.8-7.7); Neutrophils % 69.9 %; Nucleated Red Blood Cells # 0.1 /100WBC; Nucleated Red Blood Cells % 0.5 %; Platelet Count 58 10^3/cmm (157-399); Red Blood Count 3.44 10^6/uL (3.85-5.65); Red Cell Distribution Width 19.8 % (12.1-15.1); White Blood Count 17.04 10^3/uL (3.29-11.43)
[2024-05-29 08:41] LABS: Alanine Aminotransferase 62 U/L (0-33); Albumin Level 2.4 g/dL (3.5-5.2); Anion Gap 12.1 (5-19); Aspartate Amino Transferase 94 U/L (0-32); Blood Urea Nitrogen 8 mg/dL (8-23); Calcium 7.8 mg/dL (8.5-10.5); Carbon Dioxide 32 mmol/L (22-29); Chloride 88 mmol/L (98-107); Creatinine Clr Calc Pharmacy 59.5737; Globulin 2.4 g/dL (1.3-4.6); Glomerular Filtration Rate 355.4 mL/min (90-130); Glucose 226 mg/dL (65-115); Osmolality Calculated 273 mOsm/kg (285-295); Potassium 3.1 mmol/L (3.5-5.1); Sodium 129 mmol/L (136-145); Total Protein 4.8 g/dL (6.6-8.7)
[2024-05-29 09:10] LABS: Slide Review Slide Review Perform
[2024-05-29 10:05] LABS: Alkaline Phosphatase 2380 U/L (35-105); Total Bilirubin 13.7 mg/dL (0.15-1.2)
--- NOTE | 2024-06-05 13:20 | ONCRAD EPV_ITS ---
Radiation Oncology Established Patient Visit Patient: Jael Adame [id number] : 1960> Age: 64> Sex: Female> Dictated by: Dr. Екатерина Hayward Date of Service: 06/05/2024 Referring Physician(s) : Clinton Ibarra M.D. Diagnosis: C34.11 - Malignant neoplasm of upper lobe, right bronchus or lung, Diagnosed 02/24/2024 (Active) Radiotherapy to Date: Course: RUL [id number] SBRT, Treatment Site: RUL SBRT 5FX, Ref. ID: [id number] Energy: 6X, Dose/Fx (cGy): 1,000, #Fx: 5 / 5, Dose Correction (cGy): 0, Total Dose Delivered (cGy): 5,000, Start Date: 03/06/2024, End Date: 03/16/2024, Elapsed Days: 10 Current History: Patient has had increasing back pain and was actually in the ER last night. She is here today and visited with medical oncology. She has new lesions in the L2 L4 and L5 region. Her pain is severe enough that she is taking her routine and regular medication. She is also become quite jaundiced. I met with her today to discuss a short course of palliative treatment to try and get her pain under control so that she can proceed with additional treatment. Current Medications: Allergies: Current Complaints / Review of Systems: . Vital Signs: Performed on 06/05/2024 12:46 PM BMI - 25.389 kg/m2 (high), Height - 60 in, Weight - 130 lbs, Temperature - 98.7 f, Pulse - 86 /min, Respiration - 17 /min, O2 Sat - 92 % (low), Pain - 2, Fatigue - 0 and BP - 98/ 65 mm(hg). Physical Exam: General: Alert and oriented x 3. No acute distress. HEENT: Normocephalic, atraumatic. Extraocular Movements Intact: Pupils Equal, Round, Reactive to Light and Accommodation: Sclerae icteric. . . MUSCULOSKELETAL: She has severe pain in that lower lumbar area. She is wrapped tightly in a blanket and really unable to stand or move.. Performance Status: 70 Lab: None pending. Pathology: Primary, c34.11 - malignant neoplasm of upper lobe, right bronchus or lung, Diagnosed 02/24/2024 (active) . 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 We talked about how she would have to lay on the table. They did bring her pain medicine with her and we will go ahead and give her a dose before we lay her on the table today. She will undergo simulation today and will begin her treatments this week so we get her pain under control. She verbalized understanding. She is familiar with the simulation process and the daily treatment regiment. We talked about a 5-day course of treatment. We reviewed the risks and side effects both acute and long-term. At this point she is anxious to get something started to get her pain under control. She will undergo emergent simulation today Signed by: 06/05/2024 1:18:16 PM <<Signature on File>> Time spent with patient: 20 CPT Code: CPT Code:
== END 2024-06-06 23:59 | disposition home or self-care (01) ==
PROVIDERS: Nurse Practitioner Family; PCP Nurse Practitioner Family; Visit Provider Radiology Radiation Oncology
DX: C34.11 Malignant neoplasm of upper lobe, right bronchus or lung (principal); Z53.9 Procedure and treatment not carried out, unspecified reason; Z51.0 Encounter for antineoplastic radiation therapy; G89.3 Neoplasm related pain (acute) (chronic); F17.210 Nicotine dependence, cigarettes, uncomplicated; C78.7 Secondary malignant neoplasm of liver and intrahepatic bile duct; C79.51 Secondary malignant neoplasm of bone
CPT/HCPCS: 36591; 77290; 77295; 77300; 77334; 80053; 85025; 99214

== ENCOUNTER 2024-06-20 07:55 | Oncology outpatient (recurring) (ONCR) | payer MEDICARE, MEDICAID, SELFPAY ==
--- NOTE | 2024-06-08 15:11 | ONCRAD TMN_ITS ---
Patient: Jael Adame MR#: [id number] : 1960 Attending Physician: Dr. Екатерина Hayward Date of Service: 06/08/2024 Diagnosis: C79.51 - Secondary malignant neoplasm of bone, Diagnosed 06/05/2024 (Active) C34.11 - Malignant neoplasm of upper lobe, right bronchus or lung, Diagnosed 02/24/2024 (Active) Radiotherapy to date: Course: L1-L5, Treatment Site: L SPINE 20Gy, Ref. ID: [id number], Energy: 15X, Dose/Fx (cGy): 400, #Fx: , Dose Correction (cGy): 0, Total Dose Delivered (cGy): 400, Start Date: 06/08/2024, End Date: 06/08/2024, Elapsed Days: 0 To whom it may concern: Mrs. Rodriguez is a 64-year-old lady who has been diagnosed with stage IV lung cancer. She has markedly progressive disease and is undergoing treatment to her spine for bony metastasis which is basically broken her spine. She has unable to get up and move around much at all. She has difficulty getting up and down at all and has to wear a brace at all times. She is requesting approval for a lift chair. Please consider her for a lift chair as this would make her last few months more tolerable and allow her to get up and move around a little. If you should need any additional information please do not hesitate to call . Thank you in advance for your understanding on this matter Dr. Hayward signed by: Dr. Екатерина Hayward 06/08/2024 3:10:19 PM
--- NOTE | 2024-06-12 09:30 | ONCRAD TMN_ITS ---
Radiation Oncology Weekly Treatment Management Patient: Wendi Hogan MR#: [id number] : 1960> Attending Physician: Dr. Екатерина Hayward Date of Service: 06/12/2024 Fractions: 3 out of 5 Referring Physician(s) : Clinton Ibarra M.D. Diagnosis: C79.51 - Secondary malignant neoplasm of bone, Diagnosed 06/05/2024 (Active) C34.11 - Malignant neoplasm of upper lobe, right bronchus or lung, Diagnosed 02/24/2024 (Active) Radiotherapy to date: Course: L1-L5, Treatment Site: L SPINE 20Gy, Ref. ID: [id number], Energy: 15X, Dose/Fx (cGy): 400, #Fx: 3 / 5, Dose Correction (cGy): 0, Total Dose Delivered (cGy): 1,200, Start Date: 06/08/2024, Elapsed Days: 4 Reason for visit: The patient is being seen today as part of their regularly scheduled weekly on treatment visits to assess for acute toxicities from radiotherapy. Review of Systems: Patient continues to have back pain and wears her brace. She is very lethargic and sleepy today as they gave her half a pain pill at 6:00 this morning Vital Signs: Performed on 06/12/2024 9:00 AM BMI - 29.256 kg/m2 (high), Height - 60 in, Weight - 149.8 lbs, Temperature - 98.1 f, Pulse - 105 /min (high), Respiration - 18 /min, O2 Sat - 92 % (low), Pain - 4, Fatigue - 10 and BP - 101/ 67 mm(hg). Physical Exam: On exam she is jaundiced and asleep Imaging: Radiation therapy imaging related to accurate target localization (i.e. KV, MV and CBCT) was reviewed. Appropriate changes, if any, were made to ensure treatment accuracy. Plan: Will continue with her treatments as planned. I went ahead and filled her prescription so they can pick it up here. I have encouraged them to have 1 person manage her pain medicine. Since with half a pill seems to knock her completely out we talked about spacing the pills a little bit more. Signed by: Dr. Екатерина Hayward 06/12/2024 9:28:01 AM
--- NOTE | 2024-06-15 08:54 | N.ONRD TS_ITS ---
Radiation Oncology Treatment Summary Patient: Wendi>Edison MR#: [id number] : 1960> Age: 64> Sex: Female Dictated by: Dr. Екатерина Hayward Date of Service: 06/14/2024 Referring Physician(s) : Clinton Ibarra M.D. Diagnosis: C79.51 - Secondary malignant neoplasm of bone, Diagnosed 06/05/2024 (Active) C34.11 - Malignant neoplasm of upper lobe, right bronchus or lung, Diagnosed 02/24/2024 (Active) Radiotherapy to Date: Course: L1-L5, Treatment Site: L SPINE 20Gy, Ref. ID: [id number], Energy: 15X, Dose/Fx (cGy): 400, #Fx: 5 / 5, Dose Correction (cGy): 0, Total Dose Delivered (cGy): 2,000, Start Date: 06/08/2024, End Date: 06/14/2024, Elapsed Days: 6 Course: RUL [id number] SBRT, Treatment Site: RUL SBRT 5FX, Ref. ID: [id number], Energy: 6X, Dose/Fx (cGy): 1,000, #Fx: 5 / 5, Dose Correction (cGy): 0, Total Dose Delivered (cGy): 5,000, Start Date: 03/06/2024, End Date: 03/16/2024, Elapsed Days: 10 Clinical Summary: The patient tolerated RT well. She had no ill effects from the treatment but she continued to have a decline. By the end of her treatment she had quit eating the last 2 days. Plan: End of treatment today. Continue on the above medication until the skin reaction resolves. Follow-up with medical oncology next week Signed by: Dr. Екатерина Hayward>06/15/2024 8:52:27 AM <<Signature on File>>
[2024-06-20 08:33] LABS: Basophils % 0.1 %; Hematocrit 31.8 % (36-47); Lymphocytes # 0.4 10^3/uL (0.8-4.8); Lymphocytes % 4.3 %; Mean Corpuscular HGB Conc 31.1 g/dL (30-55); Mean Corpuscular Hemoglobin 31.4 pg (27-33); Mean Platelet Volume 11.7 fL (7.4-10.4); Monocytes # 0.7 10^3/uL (0.2-0.9); Monocytes % 7.8 %; Neutrophils # 7.79 10^3/uL (1.8-7.7); Neutrophils % 86.6 %; Nucleated Red Blood Cells % 0 %; Platelet Count 230 10^3/cmm (157-399); Red Blood Count 3.15 10^6/uL (3.85-5.65); Red Cell Distribution Width 21.2 % (12.1-15.1)
[2024-06-20 08:34] VITALS: BP 85/53
[2024-06-20 09:01] LABS: Alanine Aminotransferase 30 U/L (0-33); Albumin Level 2.3 g/dL (3.5-5.2); Anion Gap 16.9 (5-19); Aspartate Amino Transferase 73 U/L (0-32); Blood Urea Nitrogen 16 mg/dL (8-23); Calcium 10.7 mg/dL (8.5-10.5); Carbon Dioxide 19 mmol/L (22-29); Chloride 91 mmol/L (98-107); Glomerular Filtration Rate 123.4 mL/min (90-130); Glucose 197 mg/dL (65-115); Osmolality Calculated 265 mOsm/kg (285-295); Sodium 124 mmol/L (136-145); Total Protein 4.3 g/dL (6.6-8.7)
[2024-06-20 09:07] LABS: Potassium 2.9 mmol/L (3.5-5.1); Total Bilirubin 20.7 mg/dL (0.15-1.2)
[2024-06-20 09:43] LABS: Alkaline Phosphatase 1384 U/L (35-105)
== END 2024-06-23 23:59 | disposition home or self-care (01) ==
PROVIDERS: Internal Medicine Medical Oncology; PCP Nurse Practitioner Family; Visit Provider Radiology Radiation Oncology
DX: C34.11 Malignant neoplasm of upper lobe, right bronchus or lung; Z53.9 Procedure and treatment not carried out, unspecified reason
CPT/HCPCS: 36591; 77336; 77387; 77412; 80053; 85025; 99024

== ENCOUNTER 2024-06-20 08:48 | Emergency (ER) | payer MEDICARE, MEDICAID, SELFPAY ==
--- NOTE | 2024-06-20 08:52 | W.ED.GENADLT ---
HPI - General Adult General: Chief complaint: General Medical Stated complaint: sent by onc Time Seen by Provider: 06/20/24 08:49 History of Present Illness: 64-year-old female brought to the emergency room by family she was at a oncology appointment I drawn blood and then because of her severe pain she was brought here she has no metastasis to the liver into the lumbar spine. She has poor prognosis at this point safe given her palliative treatment to the lumbar spine to for alleviation of pain her bilirubin has been persistently elevated and is climbing. She is difficult to assess today because of her degree of pain she has some degree of encephalopathy discontinue complaining of pain not really able to answer many other questions family at the bedside including 2 sons and a daughter Associated symptoms: Reports dyspnea; Deny chest pain or rash Related Data Home Medications Medication Instructions Recorded Confirmed bupropion HCl 150 mg 24 hr tablet, 150 mg PO QAM 08/24/19 06/20/24 extended release levothyroxine 25 mcg tablet 25 mcg PO DAILY 08/24/19 06/20/24 montelukast 10 mg tablet 10 mg PO DAILY 08/24/19 06/20/24 (Singulair) rosuvastatin 20 mg tablet (Crestor) 20 mg PO DAILY 08/24/19 06/20/24 insulin glargine U-300 conc 300 30 unit SUBCUT DAILY 01/19/24 06/20/24 unit/mL (1.5 mL) subcutaneous pen (Toujeo SoloStar U-300 Insulin) insulin lispro 100 unit/mL 1 sliding scale dose SUBCUT QAM 01/19/24 06/20/24 subcutaneous pen metoprolol succinate 25 mg 25 mg PO DAILY 01/19/24 06/20/24 tablet,extended release 24 hr sitagliptin phosphate 100 mg 100 mg PO DAILY 01/19/24 06/20/24 tablet (Januvia) tirzepatide 7.5 mg/0.5 mL 7.5 mg SUBCUT .WEEKLY 03/20/24 06/20/24 subcutaneous pen injector (Mounjaro) cholecalciferol (vitamin D3) 25 25 mcg PO DAILY 06/04/24 06/20/24 mcg (1,000 unit) capsule (Vitamin D3) vitamin B complex 1 cap PO DAILY 06/04/24 06/20/24 Previous Rx's Medication Instructions Recorded amiodarone 200 mg tablet (Pacerone) 200 mg PO DAILY #60 tabs 04/20/24 lorazepam 1 mg tablet 0.5 - 1 mg (0.5 - 1 x 1 mg) PO Q6H 05/15/24 PRN Severe Nausea #30 tabs Hospital Bed #1 ea 05/16/24 furosemide 40 mg tablet 40 mg PO DAILY PRN weight gain #30 05/29/24 tabs potassium chloride 20 mEq 20 meq PO BID #60 tabs 05/29/24 tablet,extended release spironolactone 50 mg tablet 50 mg PO QAM for swelling #30 tabs 05/29/24 (Aldactone) oxycodone 5 mg tablet 5 mg PO Q6H PRN pain 30 days #90 06/12/24 tabs atropine 1 % eye drops 4 drp sublingual Q4H PRN 06/20/24 Secretions #5 mL bisacodyl 10 mg rectal suppository 10 mg HI DAILY PRN Constipation #5 06/20/24 (Dulcolax (bisacodyl)) ea diphenhydramine HCl 25 mg tablet 25 mg PO Q4H PRN Allergic Reaction 06/20/24 #5 tabs hydroxyzine HCl 25 mg tablet 25 mg PO TID PRN Itching #5 tabs 06/20/24 lorazepam 2 mg/mL oral concentrate 2 mg sublingual Q4H PRN 06/20/24 Anxiety/Seizure #30 mL morphine concentrate 100 mg/5 mL 20 mg sublingual DIRECTED PRN 06/20/24 (20 mg/mL) oral solution Pain/SOB 14 days #30 mL ondansetron 4 mg disintegrating 4 mg translingual Q4H PRN Nausea 06/20/24 tablet #5 tabs Allergies Allergy/AdvReac Type Severity Reaction Status Date / Time Penicillins Allergy Severe Unknown Verified 06/05/24 11:52 Sulfa (Sulfonamide Allergy Severe Unknown Verified 06/05/24 11:52 Antibiotics) prednisone Allergy ALGY-Redness Verified 06/05/24 11:52 of Skin Review of Systems Const: Denies: fever(s) or chills Card: Denies: chest pain Resp: Reports: dyspnea GI: Reports: abdominal pain Musc: Reports: back pain; Denies: neck pain Skin/Breast: Denies: rash PFSH ED PFSH: Medical History Port-A-Cath in place Dyslipidemia Hypertrophic cardiomyopathy Obstructive sleep apnea Lung cancer Benign neoplasm of neck COPD (chronic obstructive pulmonary disease) History of high blood pressure Type 2 diabetes mellitus Essential hypertension Surgical History History of hysterectomy with bilateral oophorectomy History of bronchoscopy (12/27/23) Bronchoscopy/EBUS History of repair of right rotator cuff History of cholecystectomy Family History Father Bleeding disorder Anesthesia complication Mother Abdominal aneurysm Brother Heart disease Sister Diabetes Other CAD (coronary artery disease) Social History Smoking and tobacco/nicotine status: current every day tobacco/nicotine user cigarettes Packs smoked per day: 0.5 [ Other cigarette details: She previously smoked up to 3 PPD; currently 1/2 PPD.] Alcohol intake: never Substance/Drug Use: never Physical Exam Const: GENERAL APPEARANCE: lethargic ORIENTATION/CONSCIOUSNESS: Yes lethargic HENMT: COMMON NORMALS: normocephalic, atraumatic and hearing grossly normal bilaterally HEAD & SCALP: normocephalic and atraumatic Resp: COMMON NORMALS: normal respiratory effort, No retractions, No use of accessory muscles and clear to auscultation bilaterally AUSCULTATION: clear to auscultation bilaterally Cardio: COMMON NORMALS: regular rate, regular rhythm and No murmurs present (Cardio) RATE: regular rate RHYTHM: regular rhythm GI: AUSCULTATION: Yes normoactive bowel sounds PALPATION: Yes Tenderness to palpation present (GI) (Generalized) and No Guarding due to palpation present (GI) Extremity: COMMON NORMALS: normal to inspection, capillary refill normal, no clubbing, cyanosis or edema, no calf tenderness and no pedal edema Neuro: SENSORIUM/ORIENTATION: Yes lethargic Skin: COMMON NORMALS: no rashes or lesions noted GENERAL SKIN EXAM: no rashes or lesions noted Course Vital Signs: Vital signs: Vital Signs Temperature 97.4 F L 06/20/24 08:54 Pulse Rate 90 06/20/24 12:40 Respiratory Rate 18 06/20/24 11:00 Blood Pressure 95/52 06/20/24 12:40 Pulse Oximetry 96 06/20/24 12:40 Oxygen Delivery Me thod Nasal Cannula 06/20/24 12:00 Oxygen Flow Rate 3 06/20/24 12:00 MDM - General Adult Medical Decision Making Patient initially presents to the ER has significant amount of pain. I reviewed her chart she has mets to her lumbar spine and liver she recently see radiation for her lumbar spine. Her prognosis is poor according to the oncologist. Patient was given Dilaudid and antiemetics which improved her significantly however she is very drowsy after this. Had discussion with the patient as well as her children who are at the bedside 2 sons and a daughter. Reviewed what I had noted in the oncology notes discussed that she has very poor prognosis they asked about hospice which I concurred with we set them up for hospice had a discussion of goals of care with the family. Initial hospice comfort Pack sent into the pharmacy. They have chosen to use [facility] when making arrangements for transportation home as well as for initial hospice consultation at home. Medical Records I reviewed the patient's medical records. Lab Data I reviewed the patient's lab results. No radiology studies performed this visit Discharge Plan Discharge Patient Disposition: Home Clinical Impression: Malignant neoplasm of upper lobe, right bronchus or lung, Metastasis to liver, Lung cancer metastatic to bone Condition: Fair Prescriptions: New morphine concentrate 100 mg/5 mL (20 mg/mL) Solution 20 mg sublingual DIRECTED MDD N/A PRN (Reason: Pain/SOB) 14 Days Qty: 30 0RF Rx Instructions: 0.25ml-1ml q1H PRN may increase to 0.5ml-1ml Q1H PRN hydroxyzine HCl 25 mg Tablet 25 mg PO TID PRN (Reason: Itching) Qty: 5 0RF Rx Instructions: Take 1 tablet by mouth as needed three times a day for itching ondansetron 4 mg Tablet,Disintegrating 4 mg translingual Q4H PRN (Reason: Nausea) Qty: 5 0RF Rx Instructions: Dissolve 1 tablet under tongue every 4 hours PRN for nausea lorazepam 2 mg/mL Concentrate 2 mg sublingual Q4H PRN (Reason: Anxiety/Seizure) Qty: 30 0RF Rx Instructions: 0.25ml-1ml q4H PRN Anxiety/Seizure Start 0.25ml may increase to 0.5ml-1ml q4H bisacodyl [Dulcolax (bisacodyl)] 10 mg Suppository 10 mg HI DAILY PRN (Reason: Constipation) Qty: 5 0RF Rx Instructions: 1 suppository per rectum every day PRN for constipation. diphenhydramine HCl 25 mg Tablet 25 mg PO Q4H PRN (Reason: Allergic Reaction) Qty: 5 0RF Rx Instructions: Take one tablet by mouth every 4 hours as needed for allergic reaction atropine 1 % Drops 4 drp sublingual Q4H PRN (Reason: Secretions) Qty: 5 0RF Rx Instructions: 4 drops SL q 4 hours PRN for terminal congestion/excessive secretions. No Action metoprolol succinate 25 mg tablet extended release 24 hr 25 mg PO DAILY insulin lispro 100 unit/mL insulin pen 1 sliding scale dose SUBCUT QAM insulin glargine U-300 conc [Toujeo SoloStar U-300 Insulin] 300 unit/mL (1.5 mL) insulin pen 30 unit SUBCUT DAILY Januvia 100 mg tablet 100 mg PO DAILY lorazepam 1 mg tablet 0.5 - 1 mg PO Q6H PRN (Reason: Severe Nausea) Qty: 30 0RF (DME) Hospital Bed See Rx Instructions .Route .MEDSUPPLY Qty: 1 0RF Rx Instructions: Hospital bed furosemide 40 mg tablet 40 mg PO DAILY PRN (Reason: weight gain) Qty: 30 6RF spironolactone [Aldactone] 50 mg tablet 50 mg PO QAM Qty: 30 3RF potassium chloride 20 mEq tablet extended release 20 meq PO BID Qty: 60 3RF oxycodone 5 mg tablet 5 mg PO Q6H PRN (Reason: pain) 30 Days Qty: 90 0RF rosuvastatin [Crestor] 20 mg Tablet 20 mg PO DAILY bupropion HCl 150 mg Tablet Extended Release 24 Hr 150 mg PO QAM levothyroxine 25 mcg Tablet 25 mcg PO DAILY montelukast [Singulair] 10 mg Tablet 10 mg PO DAILY vitamin B complex Capsule 1 cap PO DAILY cholecalciferol (vitamin D3) [Vitamin D3] 25 mcg (1,000 unit) Capsule 25 mcg PO DAILY Mounjaro 7.5 mg/0.5 mL pen injector 7.5 mg SUBCUT .WEEKLY amiodarone [Pacerone] 200 mg Tablet 200 mg PO DAILY Qty: 60 0RF Rx Instructions: Take 200 mg twice daily for next 1 week followed by 200 mg daily Discharge Orders: Discharge ED (Routine); Ordered 06/20/24 Ordered By: Greg Tejada Referrals: Lavern Henderson, MENTAL MEASUREMENTS TEACHER-C [Primary Care Provider] - Patient Instructions: Opioid Safety, Pain Management Activity Restrictions/Additional Instructions: You were seen in the emergency room for pain. The pain is related to the metastasis from your cancer. After discussion reviewing her chart and discussion with you and the family has decided to place you on hospice care. Hospice agency will meet you in your home. We wrote scripts for initial hospice care medications. They will be able to provide you with ongoing care including medicines and equipment needed to keep you comfortable. Coding Level of Care Code ED Chief Electrician for [facility]
[2024-06-20 08:54] VITALS: BP 71/26; PULSE 95; RESP 24; TEMP 36.3; O2SAT 98; BMI 29.2
[2024-06-20] MEDS: HYDROmorphone 1 mg/mL INJ 1 mL 0.5 MG IVP (09:11)
[2024-06-20] MEDS: ondansetron 2 mg/ML SDV 2 mL 8 MG IVP (09:18)
[2024-06-20 09:40] VITALS: BP 81/48; PULSE 88; RESP 13; O2SAT 97
[2024-06-20 10:00] VITALS: BP 81/46; PULSE 88; RESP 17; O2SAT 97
--- NOTE | 2024-06-20 10:03 | PC.SOCIAL ---
Hospice Referral Spoke with patient and family member at bedside. He would like to wait on his sister and other family to arrive prior to choosing a company. General hospice information provided. Myah calls later and provided that patient would like to use [facility]. Referral faxed to [facility] at this time.
--- NOTE | 2024-06-20 10:25 | PC.SOCIAL ---
[facility]. Dena reports that she will contact the son to coordinate the admission. Asked ER to call [facility] whenever patient leaves the hospital so that they can send their nurse to meet her at her home.
[2024-06-20 11:00] VITALS: BP 83/51; PULSE 86; RESP 18; O2SAT 97
[2024-06-20 12:00] VITALS: BP 85/45; PULSE 89; O2SAT 96
[2024-06-20 12:40] VITALS: BP 95/52; PULSE 90; O2SAT 96
== END 2024-06-20 12:40 | disposition home or self-care (01) ==
PROVIDERS: Emergency Provider Family Medicine; PCP Nurse Practitioner Family
DX: C34.11 Malignant neoplasm of upper lobe, right bronchus or lung (principal); C78.7 Secondary malignant neoplasm of liver and intrahepatic bile duct; C79.51 Secondary malignant neoplasm of bone; Z79.4 Long term (current) use of insulin; F17.210 Nicotine dependence, cigarettes, uncomplicated; J44.9 Chronic obstructive pulmonary disease, unspecified; E11.9 Type 2 diabetes mellitus without complications; E78.5 Hyperlipidemia, unspecified
CPT/HCPCS: 96374; 96375; 99284; J1171; J2405